=== PATIENT | female | born 1955 | race Caucasian/White ===

== ENCOUNTER 2023-04-09 11:07 | Outpatient (OUT) | payer MEDICARE, OTHER, SELFPAY ==
[2023-04-09 11:36] LABS: Basophils Absolute Auto 0.1 10^3/uL (0.0-0.1); Eosinophils Absolute Auto 0.1 10^3/uL (0.0-0.7); Eosinophils Percent Auto 1.4 % (0.9-7.0); Hematocrit 39.9 % (36.0-48.0); Hemoglobin 13.4 g/dL (12.0-16.0); Immature Granulocytes Abs Auto 0.09 10^3/uL (0.00-0.03); Immature Granulocytes Pct Auto 1.4 % (0.0-0.5); Lymphocytes Absolute Auto 1.4 10^3/uL (1.2-3.8); Lymphocytes Percent Auto 22.3 % (20.5-60.0); Mean Corpuscular HGB Conc 33.6 g/dL (29.9-35.2); Mean Corpuscular Hemoglobin 28.6 pg (26.7-34.0); Mean Corpuscular Volume 85.3 fL (81.0-99.0); Mean Platelet Volume 8.9 fL (9.5-13.5); Monocytes Absolute Auto 0.5 10^3/uL (0.3-0.8); Monocytes Percent Auto 8.3 % (1.7-12.0); Neutrophils Absolute Auto 4.1 10^3/uL (1.4-6.5); Neutrophils Percent Auto 65.6 % (43.0-75.0); Platelet Count 256 10^3/uL (150-450); Red Blood Count 4.68 10^6/uL (4.20-5.40); White Blood Count 6.3 10^3/uL (4.0-11.0)
[2023-04-09 11:48] LABS: Erythrocyte Sedimentation Rate 10 mm/hr (<=30)
[2023-04-09 13:52] LABS: Alanine Aminotransferase 40 U/L (14-59); Albumin Globulin Ratio 1.1; Alkaline Phosphatase 63 U/L (46-116); Anion Gap 10.3; Aspartate Amino Transferase 31 U/L (15-37); BUN Creatinine Ratio 20.6; Bilirubin Total 0.6 mg/dL (0.2-1.0); Calcium 9.5 mg/dL (8.5-10.1); Carbon Dioxide 30.4 mmol/L (21.0-32.0); Chloride 106 mmol/L (98-107); Estimated GFR (African America >60 (>=60); Estimated GFR (Non-African Ame >60 (>=60); Globulin 3.5 g/dL; Glucose 84 mg/dL (74-106); Potassium 3.7 mmol/L (3.5-5.1); Sodium 143 mmol/L (136-145); Total Protein 7.5 g/dL (6.4-8.2)
== END 2023-04-09 11:08 | disposition home or self-care (01) ==
LOC: LAB 11:12
PROVIDERS: Visit Provider Internal Medicine Rheumatology
DX: M05.79 Rheumatoid arthritis with rheumatoid factor of multiple sites without organ or systems involvement (principal); M19.91 Primary osteoarthritis, unspecified site; Z79.899 Other long term (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 therapy
CPT/HCPCS: 36415; 80053; 85025; 85652

== ENCOUNTER 2023-10-12 12:39 | Outpatient (OUT) | payer MEDICARE, OTHER, SELFPAY ==
[2023-10-12 13:15] LABS: Basophils Absolute Auto 0.1 10^3/uL (0.0-0.1); Basophils Percent Auto 0.7 % (0.2-2.0); Eosinophils Absolute Auto 0.1 10^3/uL (0.0-0.7); Eosinophils Percent Auto 1.2 % (0.9-7.0); Hematocrit 40.6 % (36.0-48.0); Hemoglobin 13.2 g/dL (12.0-16.0); Immature Granulocytes Abs Auto 0.01 10^3/uL (0.00-0.03); Immature Granulocytes Pct Auto 0.1 % (0.0-0.5); Lymphocytes Absolute Auto 1.7 10^3/uL (1.2-3.8); Lymphocytes Percent Auto 23.1 % (20.5-60.0); Mean Corpuscular HGB Conc 32.5 g/dL (29.9-35.2); Mean Corpuscular Hemoglobin 27.7 pg (26.7-34.0); Mean Corpuscular Volume 85.3 fL (81.0-99.0); Monocytes Absolute Auto 0.5 10^3/uL (0.3-0.8); Monocytes Percent Auto 6.6 % (1.7-12.0); Neutrophils Absolute Auto 5.1 10^3/uL (1.4-6.5); Neutrophils Percent Auto 68.3 % (43.0-75.0); Platelet Count 261 10^3/uL (150-450); Red Blood Count 4.76 10^6/uL (4.20-5.40); Red Cell Distribution Width 12.8 % (11.0-15.0); White Blood Count 7.5 10^3/uL (4.0-11.0)
[2023-10-12 13:32] LABS: Erythrocyte Sedimentation Rate 14 mm/hr (<=30)
[2023-10-12 13:43] LABS: Alanine Aminotransferase 41 U/L (14-59); Albumin Level 3.7 g/dL (3.4-5.0); Alkaline Phosphatase 65 U/L (46-116); Anion Gap 8.7; Aspartate Amino Transferase 28 U/L (15-37); Bilirubin Total 0.5 mg/dL (0.2-1.0); Calcium 9.3 mg/dL (8.5-10.1); Carbon Dioxide 32.7 mmol/L (21.0-32.0); Chloride 105 mmol/L (98-107); Estimated GFR (African America >60 (>=60); Estimated GFR (Non-African Ame >60 (>=60); Globulin 3.7 g/dL; Glucose 95 mg/dL (74-106); Potassium 3.4 mmol/L (3.5-5.1); Sodium 143 mmol/L (136-145); Total Protein 7.4 g/dL (6.4-8.2)
== END 2023-10-12 12:40 | disposition home or self-care (01) ==
LOC: LAB 12:44
PROVIDERS: Visit Provider Registered Nurse
DX: M05.79 Rheumatoid arthritis with rheumatoid factor of multiple sites without organ or systems involvement (principal); M19.91 Primary osteoarthritis, unspecified site; Z79.899 Other long term (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 therapy
CPT/HCPCS: 36415; 80053; 85025; 85652

== ENCOUNTER 2024-03-08 07:16 | Outpatient (OUT) | payer MEDICARE, OTHER, SELFPAY ==
--- OUTSIDE RECORDS SUMMARY | 2024-03-08 07:20 | XMS_ITS | CCD ---
Author Organization [facility] Care Team Providers Care Solvent Recoverer Name Role Phone Shakeel Abbott MD Primary Care Provider [phone] MISC, DR JEFFERSON Consulting Unavailable PERSNO ., DR BRE Boogie Primary Care Unavailable SANCHEZ, DR ODONNELL Admitting Unavailable SANCHEZ, DR ODONNELL Attending Unavailable SANCHEZ, DR ODONNELL Consulting Unavailable MISC, DR JEFFERSON Admitting Unavailable MISC, DR JEFFERSON Consulting Unavailable MISC, DR JEFFERSON Attending Unavailable PERSON ., DR BRE Boogie Primary Care Unavailable Shakeel Abbott MD Primary Care Provider SCAR, SHAKEEL Referring Unavailable SCAR, SHAKEEL Primary Care Unavailable SCAR, SHAKEEL Referring Unavailable SCAR, SHAKEEL Primary Care Unavailable Bre Person MD Primary Care Provider SCAR, SHAKEEL Referring Unavailable SCAR, SHAKEEL Primary Care Unavailable SCAR, SHAKEEL Attending Unavailable SCAR, SHAKEEL Primary Care Unavailable Medications Current Medications Medication Drug Class(es) Dates Sig (Normalized) Sig (Original) ALPRAZolam 0.25 mg oral tablet (8 sources) Benzodiazepine Start: 12-28-2023 End: 06-25-2024 take 1 tablet by mouth once daily as needed ALPRAZolam (XANAX) 0.25 mg tablet Indications: SHYLA (generalized anxiety disorder) Take 1 tablet by mouth once daily as needed for up to 180 days. Not taking 12/25/20 10 tablet 0 12/28/2023 06/25/2024 Active Start: 12-05-2022 End: 06-03-2023 take 1 tablet by mouth once daily as needed ALPRAZolam (XANAX) 0.25 mg tablet Indications: SHYLA (generalized anxiety disorder) Take 1 tablet by mouth once daily as needed for up to 180 days. Not taking 12/25/20 10 tablet 0 12/05/2022 06/03/2023 Active Start: 08-28-2021 End: 09-20-2022 take 1 tablet by mouth once daily as needed ALPRAZolam (XANAX) 0.25 mg tablet Indications: SHYLA (generalized anxiety disorder) Take 1 tablet by mouth once daily as needed for up to 180 days. Not taking 12/25/20 10 tablet 0 03/24/2022 09/20/2022 Active Comment on above: Take 1 tablet by marlon th once daily as needed for up to 180 days. Not taking 12/25/20 Take 1 tablet by marlon th once daily as needed for up to 90 days. Not taking 12/25/20 Completed/Discontinued Medications Medication Drug Class(es) Dates Sig (Normalized) Sig (Original) amLODIPine 5 mg oral tablet (12 sources) Dihydropyridine Calcium Channel Naz Start: 12-05-2022 End: 12-28-2023 take 1 tablet by mouth once daily amLODIPine (NORVASC) 5 mg tablet Indications: Hypertension, essential Take 1 tablet by mouth once daily. 90 tablet 3 12/28/2023 Active Start: 02-20-2021 End: 12-17-2021 take 1 tablet by mouth once daily amLODIPine (NORVASC) 5 mg tablet Take 1 tablet by mouth once daily. 30 tablet 11 02/20/2021 12/17/2021 Discontinued Comment on above: TAKE 1 TABLET BY MARLON TH EVERY DAY Take 1 tablet by marlon th once daily. hydroCHLOROthiazide 12.5 mg / lisinopril 20 mg oral tablet (13 sources) Thiazide Diuretic, Angiotensin Converting Enzyme Inhibitor Start: End: 024 take 1 tablet by mouth once daily lisinopril-hydroCHL OROthiazide (ZESTORETIC) 20-12.5 mg per tablet Indications: Hypertension, essential Take 1 tablet by mouth once daily. 90 tablet 3 12/28/2023 Active Comment on above: Take 1 tablet by marlon th once daily. Take one(1) tablet d aily. take 1 tablet by marlon th every day hydroxychloroquine sulfate 200 mg oral tablet (11 sources) Antimalarial, Antirheumatic Agent Start: PLAQUENIL 200 MG TABLET one tablet two times daily 0 11/07/2004 Active Comment on above: one tablet two times daily lovastatin 20 mg oral tablet (1 source) HMG-CoA Reductase Inhibitor Start: 009 End: LOVASTATIN 20 MG TAB Take one(1) tablet daily. 0 04/30/2009 02/21/2021 Discontinued Comment on above: Take one(1) tablet d aily. rosuvastatin calcium 40 mg oral tablet (11 sources) HMG-CoA Reductase Inhibitor Start: 023 End: 024 take 1 tablet by mouth once daily rosuvastatin (CRESTOR) 40 mg tablet Indications: Hyperlipidemia, mixed Take 1 tablet by mouth once daily. 90 tablet 3 12/28/2023 Active Start: 02-21-2021 End: 02-17-2022 take 1 tablet by mouth once daily rosuvastatin (CRESTOR) 40 mg tablet TAKE 1 TABLET BY MOUTH EVERY DAY 90 tablet 3 02/17/2022 Active Comment on above: Take 1 tablet by marlon th once daily. TAKE 1 TABLET BY MARLON TH EVERY DAY Problems Active Problems Problem Classification Problem Date Documented Date Episodic/Chronic Anxiety disorders (10 sources) Generalized anxiety disorder; Translations: [Generalized anxiety disorder] Onset: 03-24-2022 Chronic Cancer of breast (10 sources) Malignant neoplasm of female breast; Translations: [Malignant neoplasm of unspecified site of unspecified female breast] Onset: 11-07-2004 11-07-2004 Chronic Disorders of lipid metabolism (14 sources) Mixed hyperlipidemia; Translations: [Mixed hyperlipidemia] Onset: 02-20-2021 02-20-2021 Chronic Essential hypertension (16 sources) Essential hypertension; Translations: [Essential (primary) hypertension] Onset: 02-20-2021 Chronic Osteoarthritis (1 source) Primary osteoarthritis, unspecified site; Translations: [PRIMARY OSTEOARTHRITIS UNS SITE] Onset: 11-24-2022 Chronic Other aftercare (1 source) 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; Translations: [OTH FIELD CAPTAIN CURRENT DRUG THERAPY] Onset: 11-24-2022 Episodic Other nutritional; endocrine; and metabolic disorders (1 source) Hypercalcemia; Translations: [Hypercalcemia] 12-28-2023 Chronic Other screening for suspected conditions (not mental disorders or infectious disease) (9 sources) Patient encounter status; Translations: [Encounter for other screening for malignant neoplasm of breast] Onset: 04-28-2023 Episodic Residual codes; unclassified (1 source) Postmenopausal state; Translations: [Asymptomatic menopausal state] 04-28-2023 Episodic Residual codes; unclassified (1 source) Asymptomatic menopausal state; Translations: [Asymptomatic postmenopausal status] Onset: 04-28-2023 Episodic Rheumatoid arthritis and related disease (17 sources) Seronegative rheumatoid arthritis; Translations: [Rheumatoid arthritis without rheumatoid factor, unspecified site] Onset: 02-20-2021 02-20-2021 Chronic Past or Other Problems Problem Classification Problem Date Documented Da te Episodic/Chronic Cancer of breast (1 source) History of malignant neoplasm of breast; Translations: [Personal history of malignant neoplasm of breast] Onset: 11-07-2004 12-28-2023 Episodic Heart valve disorders (11 sources) Heart murmur; Translations: [Cardiac murmur, unspecified] Onset: 02-20-2021 02-20-2021 Episodic Results Test Name Value Interpretation Reference Range Facility [facility] 12-28-2023 CNOV Office Visit (FAMPLN) MARY DEMPSEY ([id number]) 1955 F Date Time Provider Department 12/28/23 2:40 PM SHAKEEL ABBOTT During your visit today, we recorded the following information about you: Pulse Blood pressure Weight 88/minute 140/78 71.6 kg Shakeel Abbott MD 12/28/2023 3:21 PM Signed Mary Zambranole is a 68 year old female here for a Medicare wellness visit. Medicare Health Risk Assessment General Health Very good Exercise: Minutes/Day 40 min Exercise: Days/Week 3 days- walking in the summer Alcohol: Daily Use Never Alcohol: Drinks/Day Patient does not drink Alcohol: 6 or more drinks Never Feel off balance No Concerns: Teeth/Dentures No Concerns: Sexual function No Troubled by feelings None of the above Frequency: Eating healthy diet Nearly every day ADLs requiring help Safety precautions in home/vehicle Yes Smoke, vape, chews tobacco No Difficulty hearing No Difficulty seeing No Current Providers Specialists: I have reviewed specialist-related care of the patient in the medical record. Sees rheumatology in [place] Medical/Family history review Reviewed and updated problem list, medical/surgical/fam fadia/social history, medications, and allergies. Opioid use review Opioid Medications (last 90 days) No data to display Depression screening Depression Screening PHQ-2 Score 12/28/2023 0 Depression screening tool completed and reviewed. Based on score and interview, patient is not at risk for depression. Screening tool discussed with patient, and I recommended no further intervention at this time. Cognitive screening Mini Cog Score: 5 Cognitive screening reviewed and no further action needed (score 3-5) Functional Observation Was the patient's Timed Up AND Go test unsteady or ? 12 seconds? No Advance Care Planning Surrogate decision maker and/or advance care plan documented Measurements BP 140/78 Pulse 88 Wt 157 lb 13.6 oz (71.6kg) SpO2 98% Vision Screening: Follows with optometry/ophthalmol ogy Assessment/Plan Medicare annual wellness visit, subsequent () - Counseled on healthy diet and regular exercise - Fall avoidance information provided - Personalized prevention plan provided Additional Concerns The following concerns were also discussed with the patient: HTN: home readings are normotensive 121/78 this morning on her cuff No changes in health in the past year PHYSICAL EXAM BP 140/78 Pulse 88 Wt 71.6 kg (157 lb 13.6 oz) SpO2 98% BMI 27.62 kg/m? GENERAL: well appearing, alert, in no acute distress CARDIOVASCULAR: regular rate and rhythm. No murmur, rubs or gallops. PULMONARY: clear to auscultation, no wheezing, rhonchi, or crackles ABDOMEN: soft, non-tender, non-distended, no masses or organomegaly EXTREMITY: no lower extremity edema. No skin discoloration. ASSESSMENT/PLAN: 1. Medicare annual wellness visit, subsequent - ICD9: V70.0, ICD10: Z00.00 (primary diagnosis) See above Would like cologuard instead of colonoscopy, ordered Mammogram ordered Pap done last year - ADVANCE CARE PLAN DISCUSSION - DEPRESSION SCREENING/ASSESSMENT 2. Screening for colon cancer - ICD9: V76.51, ICD10: Z12.11 - COLOGUARD 3. Hypertension, essential - ICD9: 401.9, ICD10: I10 - Home blood pressure readings controlled, home cuff has been verified in our office previously - Continue current medications - AMLODIPINE 5 MG TABLET - LISINOPRIL 20 MG-HYDROCHLOROTHIAZI DE 12.5 MG TABLET 4. SHYLA (generalized anxiety disorder) - ICD9: 300.02, ICD10: F41.1 Continue using Xanax sparingly as needed - ALPRAZOLAM 0.25 MG TABLET 5. Hypercalcemia - ICD9: 275.42, ICD10: E83.52 Repeat labs in 3 months - CALCIUM IONIZED BLOOD - BASIC METABOLIC PNL - PTH INTACT BLD - VITAMIN D 25 HYDROXY 6. Encounter for screening mammogram for malignant neoplasm of breast - ICD9: V76.12, ICD10: Z12.31 - NOÉ SCREENING W MANDA 7. Hyperlipidemia, mixed - ICD9: 272.2, ICD10: E78.2 Continue rosuvastatin - ROSUVASTATIN 40 MG TABLET 8. Seronegative rheumatoid arthritis (HCC) - ICD9: 714.0, ICD10: M06.00 Following with outside practicing dermatologist, stable on Plaquenil MD Scar Medina Cara, MD 12/28/2023 2:31 PM Signed Screening schedule The following prevention plan is recommended: BP Controlled (<130/80) Never done Colorectal Cancer Screening Never done Shingrix Vaccine(1 of 2) Never done RSV Vaccine(1 - 1-dose 60+ series) Never done Advance Directive Discussion due on 09/28/2023 Depression Assessment due on 09/28/2023 Annual PCP Team Chronic Disease Visit due on 12/06/2023 WHAT YOU CAN DO TO PREVENT FALLS Many falls can be prevented. By making some changes, you can lower your chances of falling. Four things YOU can do to prevent falls for you* and your caregiver 1. Begin a regular exercise program Exercise is one of the most important way (more content not included)... Normal [facility] CBC panel Auto (Bld)on 11-30 Erythrocyte distribution width (RBC) [Ratio] 12.8 % Normal 11.5-15.0 [facility] Comment on above: Order Comment: Speci men Type: BLOOD SPECIMEN Ordering Facility: [facility] Address: [address] [place], [place] [address] [address] Performed By: #### 5 8410-2 #### [facility] CLIA [id number] [address] [place] [address] Hematocrit (Bld) [Volume fraction] 41.7 % Normal 36.0-46.0 [facility] Comment on above: Order Comment: Speci men Type: BLOOD SPECIMEN Ordering Facility: [facility] Address: [address] [place] [address] Performed By: #### 5 8410-2 #### [facility] CLIA [id number] [address] [place] [address] Hemoglobin (Bld) [Mass/Vol] 13.7 g/dL Normal 11.5-15.5 [facility] Comment on above: Order Comment: Speci men Type: BLOOD SPECIMEN Ordering Facility: [facility] Address: [address] [place], [place] [address] Performed By: #### 5 8410-2 #### [facility] CLIA [id number] [address] [place] [address] MCH (RBC) [Entitic mass] 27.6 pg Normal 26.0-34.0 [facility] Comment on above: Order Comment: Speci men Type: BLOOD SPECIMEN Ordering Facility: [facility] Address: [address] [place] [address] Performed By: #### 5 8410-2 #### [facility] CLIA [id number] [address] [place] [address] MCHC (RBC) [Mass/Vol] 32.9 g/dL Normal 30.5-36.0 [facility] Comment on above: Order Comment: Speci men Type: BLOOD SPECIMEN Ordering Facility: [facility] Address: [address] [place] [address] Performed By: #### 5 8410-2 #### [facility] CLIA [id number] [address] [place] [address]20 MCV (RBC) [Entitic vol] 83.9 fL Normal 80.0-100.0 [facility] Comment on above: Order Comment: Speci men Type: BLOOD SPECIMEN Ordering Facility: [facility] Address: [address] [place] [address] Performed By: #### 5 8410-2 #### [facility] CLIA [id number] [address] [place] [address]254 Nucleated RBC (Bld) [#/Vol] 10*3/uL Normal <0.01 [facility] Comment on above: Order Comment: Speci men Type: BLOOD SPECIMEN Ordering Facility: [facility] Address: [address] [place] [place] [id number] Performed By: #### 5 8410-2 #### [facility] CLIA [id number] [address] [place] [address] 19123 Platelet mean volume (Bld) [Entitic vol] 8.9 fL Low 9.0-12.7 [facility] Comment on above: Order Comment: Speci men Type: BLOOD SPECIMEN Ordering Facility: [facility] Address: [address] [place] [address] Performed By: #### 5 8410-2 #### [facility] CLIA [id number] [address] [place] [address] 13756 Platelets (Bld) [#/Vol] 263 10*3/uL Normal 150-400 [facility] Comment on above: Order Comment: Speci men Type: BLOOD SPECIMEN Ordering Facility: [facility] Address: [address] [place] [address] Performed By: #### 5 8410-2 #### [facility] CLIA [id number] [address] [place] [address] 24005 RBC (Bld) [#/Vol] 4.97 10*6/uL Normal 3.90-5.20 [facility] Comment on above: Order Comment: Speci men Type: BLOOD SPECIMEN Ordering Facility: [facility] Address: [address] [place] [address] Performed By: #### 5 8410-2 #### [facility] CLIA [id number] [address] [place] [address]24 WBC (Bld) [#/Vol] 7.29 10*3/uL Normal 3.70-11.00 [facility] Comment on above: Order Comment: Speci men Type: BLOOD SPECIMEN Ordering Facility: [facility] Address: [address] [place], [place] [address] Performed By: #### 5 8410-2 #### [facility] CLIA [id number] [address] [place] [address] 43936 Comprehensive metabolic 2000 panelon 12-01-2023 Albumin [Mass/Vol] 4.7 g/dL Normal 3.9-4.9 [facility] Comment on above: Order Comment: Speci men Type: BLOOD SPECIMEN Ordering Facility: [facility] Address: [address] [place] [address] Performed By: #### 2 4323-8 #### [facility] CLIA [id number] [address] [place] [address] 50188 ALP [Catalytic activity/Vol] 78 U/L Normal 34-123 [facility] Comment on above: Order Comment: Speci men Type: BLOOD SPECIMEN Ordering Facility: [facility] Address: [address] [place] [address] Performed By: #### 2 4323-8 #### [facility] CLIA [id number] [address] [place] [address] 13082 ALT [Catalytic activity/Vol] 30 U/L Normal 7-38 [facility] Comment on above: Order Comment: Speci men Type: BLOOD SPECIMEN Ordering Facility: [facility] Address: [address] [place] [address] Performed By: #### 2 4323-8 #### [facility] CLIA [id number] [address] [place] [address] 33743 Anion gap [Moles/Vol] 12 mmol/L Normal 9-18 [facility] Comment on above: Order Comment: Speci men Type: BLOOD SPECIMEN Ordering Facility: [facility] Address: [address] [place] [address] Performed By: #### 2 4323-8 #### [facility] CLIA [id number] [address] [place] [address] AST [Catalytic activity/Vol] 32 U/L Normal 13-35 [facility] Comment on above: Order Comment: Speci men Type: BLOOD SPECIMEN Ordering Facility: [facility] Address: [address] [place] [address] Performed By: #### 2 4323-8 #### [facility] CLIA [id number] [address] [place] [address] Bilirubin [Mass/Vol] 0.7 mg/dL Normal 0.2-1.3 [facility] Comment on above: Order Comment: Speci men Type: BLOOD SPECIMEN Ordering Facility: [facility] Address: [address] [place] [address] Performed By: #### 2 4323-8 #### [facility] CLIA [id number] [address] [place] [address] Calcium [Mass/Vol] 10.3 mg/dL High 8.5-10.2 [facility] Comment on above: Order Comment: Speci men Type: BLOOD SPECIMEN Ordering Facility: [facility] Address: [address] [place] [address] Performed By: #### 2 4323-8 #### [facility] CLIA [id number] [address] [place] [address]116 Chloride [Moles/Vol] 106 mmol/L High 97-105 [facility] Comment on above: Order Comment: Speci men Type: BLOOD SPECIMEN Ordering Facility: [facility] Address: [address] [place], [place] [address] Performed By: #### 2 4323-8 #### [facility] CLIA [id number] [address] [place] [address] CO2 [Moles/Vol] 28 mmol/L Normal 22-30 [facility] Comment on above: Order Comment: Speci men Type: BLOOD SPECIMEN Ordering Facility: [facility] Address: [address] [place] [address] Performed By: #### 2 4323-8 #### [facility] CLIA [id number] [address] [place] [address] Creatinine [Mass/Vol] 0.76 mg/dL Normal 0.58-0.96 [facility] Comment on above: Order Comment: Speci men Type: BLOOD SPECIMEN Ordering Facility: [facility] Address: [address] [place] [address] Performed By: #### 2 4323-8 #### [facility] CLIA [id number] [address] [place] [address] 21462 Creatinine and Glomerular filtration rate.predicted panel (S/P/Bld) 85 mL/min/1.73m??? Normal >=60 [facility] Comment on above: Order Comment: Speci men Type: BLOOD SPECIMEN Ordering Facility: [facility] Address: [address] [place] [address] Result Comment: Ambar mated Glomerular Filtration Rate (eGFR) is calculated using the 2020 CKD-EPI creatinine equation. This equation utilizes serum creatinine, sex, and age as parameters. The creatinine assay has traceable calibration to isotope dilution-mass spectrometry. Refer to KDIGO guidelines for clinical interpretation. In patients with unstable renal function, e.g. those with acute kidney injury, the eGFR may not accurately reflect actual GFR. Performed By: #### 2 4323-8 #### [facility] CLIA [id number] [address] [place] [address] 21468 Glucose [Mass/Vol] 94 mg/dL Normal 74-99 [facility] Comment on above: Order Comment: Speci men Type: BLOOD SPECIMEN Ordering Facility: [facility] Address: [address] [address] Result Comment: The [place] Diabetes Association (ADA) provides guidance for cutoff values for fasting glucose and random glucose. The ADA defines fasting as no caloric intake for at least 8 hours. Fasting plasma glucose results between 100 to 125 mg/dL indicate increased risk for diabetes (prediabetes). Fasting plasma glucose results greater than or equal to 126 mg/dL meet the criteria for diagnosis of diabetes. In the absence of unequivocal hyperglycemia, results should be confirmed by repeat testing. In a patient with classic symptoms of hyperglycemia or hyperglycemic crisis, random plasma glucose results greater than or equal to 200 mg/dL meet the criteria for diagnosis of diabetes. Reference: Standards of Medical Care in Diabetes 2016, [employer] Diabetes Association. Diabetes Care. 2016.39(Suppl 1). Performed By: #### 2 4323-8 #### [facility] CLIA [id number] [address] [place] [address]199 Potassium [Moles/Vol] 4.0 mmol/L Normal 3.7-5.1 [facility] Comment on above: Order Comment: Speci men Type: BLOOD SPECIMEN Ordering Facility: [facility] Address: [address] [place] [address] Performed By: #### 2 4323-8 #### [facility] CLIA [id number] [address] [place] [address] 82203 Protein [Mass/Vol] 7.5 g/dL Normal 6.3-8.0 [facility] Comment on above: Order Comment: Speci men Type: BLOOD SPECIMEN Ordering Facility: [facility] Address: [address] [place] [address] Performed By: #### 2 4323-8 #### [facility] CLIA [id number] [address] [place] [address]3555 Sodium [Moles/Vol] 146 mmol/L High 136-144 [facility] Comment on above: Order Comment: Speci men Type: BLOOD SPECIMEN Ordering Facility: [facility] Address: [address] [place] [address] Performed By: #### 2 4323-8 #### [facility] CLIA [id number] [address] [place] [address] 27816 Urea nitrogen [Mass/Vol] 14 mg/dL Normal 7-21 [facility] Comment on above: Order Comment: Speci men Type: BLOOD SPECIMEN Ordering Facility: [facility] Address: [address] [place] [address] Performed By: #### 2 4323-8 #### [facility] CLIA [id number] [address] [place] [address] 81498 Lipid 1996 panelon 4 Cholesterol [Mass/Vol] 185 mg/dL Normal <200 [facility] Comment on above: Order Comment: Speci men Type: BLOOD SPECIMEN Ordering Facility: [facility] Address: [address] [place] [address] Result Comment: <200 mg/dL, Desirable 200-239 mg/dL, Borderline high >239 mg/dL, High Performed By: #### 2 4331-1 #### [facility] CLIA [id number] [address] [place] [address] LAB CLIA [id number] [address] [place] [address] 77565 Cholesterol in HDL [Mass/Vol] 55 mg/dL Normal >39 [facility] Comment on above: Order Comment: Eric men Type: BLOOD SPECIMEN Ordering Facility: [facility] Address: [address] [place] [address] Result Comment: 40-5 9 mg/dL, Acceptable >59 mg/dL, High: Negative risk factor for coronary heart disease <40 mg/dL, Low: Positive risk factor for coronary heart disease Performed By: #### 2 4331-1 #### [facility] CLIA [id number] [address] [place] [address] LAB CLIA [id number] [address] [place] [address]2319 Cholesterol in LDL [Mass/Vol] 112 mg/dL High <100 [facility] Comment on above: Order Comment: Irasemai men Type: BLOOD SPECIMEN Ordering Facility: [facility] Address: [address] [place] [address] Result Comment: <100 mg/dL, Optimal 100-129 mg/dL, Near optimal/above optimal 130-159 mg/dL, Borderline high 160-189 mg/dL, High >189 mg/dL, Very high Secondary prevention optimal LDL Cholesterol levels are recommended to be < 70 mg/dL Performed By: #### 2 4331-1 #### [facility] CLIA [id number] [address] [place] [address] LAB CLIA [id number] [address] [place] [address] Cholesterol in LDL/Cholesterol in HDL [Mass ratio] 2.04 {ratio} Normal <2.54 [facility] Comment on above: Order Comment: Speci men Type: BLOOD SPECIMEN Ordering Facility: [facility] Address: [address] [place] [address] Result Comment: Raymundo frazier: 1. National Cholesterol Education Program ATP III Guideline At-A-Glance Quick Desk Reference: National Heart, Lung, and Blood [place]. National Institutes of Health. 2001: NIH Publication No. 01-3305. 2. An International Atherosclerosis Society position paper: global recommendations for the management of dyslipidemia: executive summary, Atherosclerosis. 2014: 232(2):410-413. Performed By: #### 2 4331-1 #### [facility] CLIA [id number] [address] [place] [address] LAB CLIA [id number] [address] [place] [address] Cholesterol in VLDL [Mass/Vol] 18 mg/dL Normal <30 [facility] Comment on above: Order Comment: Irasemai men Type: BLOOD SPECIMEN Ordering Facility: [facility] Address: [address] [place] [address] Performed By: #### 2 4331-1 #### [facility] CLIA [id number] [address] [place] [address] LAB CLIA [id number] [address] [place] [address]9063 Cholesterol non HDL [Mass/Vol] 130 mg/dL High <130 [facility] Comment on above: Order Comment: Irasemai men Type: BLOOD SPECIMEN Ordering Facility: [facility] Address: [address] [place], [place] [id number] Result Comment: <130 mg/dL, Optimal 130-159 mg/dL, Near optimal/above optimal 160-189 mg/dL, Borderline high 190-219 mg/dL, High >219 mg/dL, Very high Secondary prevention optimal non HDL Cholesterol levels are recommended to be <100 mg/dL Performed By: #### 2 4331-1 #### [facility] CLIA [id number] [address] [place], [place] [id number] [facility] CLIA [id number] [address] [place] [address] Cholesterol.total/C holesterol in HDL [Mass ratio] 3.36 {ratio} Normal <5.10 [facility] Comment on above: Order Comment: Speci men Type: BLOOD SPECIMEN Ordering Facility: [facility] Address: [address] [place], [place] [address] Performed By: #### 2 4331-1 #### [facility] CLIA [id number] [address] [place], [place] [address] [facility] CLIA [id number] [address] [place] [address] FASTING TIME 12 hrs Normal [facility] Comment on above: Order Comment: Speci men Type: BLOOD SPECIMEN Ordering Facility: [facility] Address: [address] [place], [place] [address] Performed By: #### 2 4331-1 #### [facility] CLIA [id number] [address] [place], [place] [address] [facility] CLIA [id number] [address] [place] [address]64 Triglyceride [Mass/Vol] 88 mg/dL Normal <150 [facility] Comment on above: Order Comment: Speci men Type: BLOOD SPECIMEN Ordering Facility: [facility] Address: [address] [place] [address] Result Comment: <150 mg/dL, Normal 150-199 mg/dL, Borderline high 200-499 mg/dL, High >499 mg/dL, Very high Performed By: #### 2 4331-1 #### [facility] CLIA [id number] [facility] [facility] [address] [address] [place] [facility] CLIA [id number] [address] [place] [address] CNCOon 04-29-2023 [facility] HNO ID: [id number] Author: Coordinator, Mammography Service: ? Author Type: Physician Type: Letter Filed: 04/30/2023 11:34 PM Note Text: [address] [address] April 29, 2023 PID: [id number] Mary Dempsey [address] [place] [address] [place] [id number] Dear Ms. Dempsey, We are pleased to inform you that the results of your recent breast imaging exam on 04/28/2023 are normal. Early detection of cancer is very important. We also understand recommendations regarding breast cancer screening are controversial. Please discuss with your primary care provider which strategy is best for you and whether a mammogram is right for you. Your imaging studies and report will be kept on file at [facility] as part of your permanent medical record and are available for your continuing care. Thank you for allowing us to help in meeting your health care needs. Sincerely, Dr. Sam Interpreting Radiologist [facility] (Normal over 40) Normal [facility] BD DXA - AXIAL SKELETONon BD DXA - AXIAL SKELETON * * *Final Report* * * DATE OF EXAM: Apr 28 2023 3:16PM LDX 0804 - BD DXA - AXIAL SKELETON / PROCEDURE REASON: multiple diagnoses * * * * Physician Interpretation * * * * EXAM TITLE: BONE MINERAL DENSITOMETRY DATE: 04/28/2023 2:30 PM COMPARISON: CLINICAL INDICATION/HISTORY: Postmenopausal, screening for osteoporosis TECHNIQUE: DXA [place]-Mytonomy QDR 4500C v.11.2 examination was performed on the lumbar spine and hips. FINDINGS: 1. L1-L4 BMD is 1.015 g/cm2 which is 86% of peak bone mass compared to young normals which is -1.4 standard deviations relative to the mean of young normals (T-score). According to the World Health Organization criteria, this would be classified as osteopenia. No statistically significant interval change. 2. Left hip BMD is 0.972 g/cm2 which is 96% of peak bone mass compared to young normals which is -0.3 standard deviations relative to the mean of young normals (T-score). According to the World Health Organization criteria, this would be classified as normal. No statistically significant interval change. 3. Left femoral neck BMD is 0.900 g/cm2 which is 87% of peak bone mass compared to young normals which is -1.0 standard deviations relative to the mean of young normals (T-score). According to the World Health Organization criteria, this would be classified as borderline normal. 4. Right hip BMD is 1.034 g/cm2 which is 103% of peak bone mass compared to young normals which is 0.2 standard deviations relative to the mean of young normals (T-score). According to the World Health Organization criteria, this would be classified as normal. 5. Right femoral neck BMD is 0.918 g/cm2 which is 88% of peak bone mass compared to young normals which is -0.9 standard deviations relative to the mean of young normals (T-score). According to the World Health Organization criteria, this would be classified as normal. IMPRESSION: Osteopenia by WHO criteria. Patient is at increased risk for fractures. No statistically significant interval change. * FRAX 10 YEAR PROBABILITY OF FRACTURE: Major Osteoporotic 11.0 % Hip 1.1 % Based on Femur Neck BMD * FRAX is a trademark of the [employer]'s [facility] for Metabolic Bone Disease, a WHO Collaborating [place]. This applies to men over 50 and to post menopausal women over 50 years of age. The 10 year probability of fracture may be lower than reported above if the patient has received treatment for osteopenia/osteoporo sis. It is also less accurate the more severe the osteoporosis. Major Osteoporotic Fracture: clinical spine, forearm, hip or shoulder. RELATIVE FRACTURE RISK TABLE NOTE: This table applies to post-menopausal females. T-score Fracture risk 0 average risk for normal 40 year old -1 2 times the normal -2 4 times the normal -3 8 times the normal etc. GENERAL RECOMMENDATIONS FOR PREVENTION OF BONE LOSS: 1. 1200 mg - 1500 mg calcium per day if no history of renal calculi for adults 50 years and over. 2. 800 - 1000 International Units of vitamin D3 per day if no history of renal calculi for adults 50 years and over. 3. Weight bearing exercise 4. Advise against smoking. If currently smoking, recommend cessation. 5. Avoid excessive use of caffeine, soft drinks, and alcoholic beverages. The National Osteoporosis Foundation recommends that treatment be considered for patients with T-scores of -2.5 or lower (-1 or lower if patient at high risk for accelerated bone loss). Adult School Counselor: PSCB Transcribe Date/Time: Apr 29 2023 7:40A Dictated by : NIKOLAS SILVEIRA MD This examination was interpreted and the report reviewed and electronically signed by: NIKOLAS SILVEIRA MD on Apr 29 2023 7:41AM EST [id number] CN Normal [facility] NOÉ SCREENING W TOMOon 04-28 NOÉ SCREENING W MANDA * * *Final Report* * * DATE OF EXAM: Apr 28 2023 3:14PM LDW 0582 - NOÉ SCREENING W MANDA / PROCEDURE REASON: Encounter for screening mammogram for malignant neoplasm of breast * * * * Physician Interpretation * * * * #[id number] - NOÉ SCREENING W MANDA BILATERAL DIGITAL SCREENING MAMMOGRAM TOMOSYNTHESIS WITH CAD: 04/28/2023 HISTORY: / Screening Mammogram-Patient reports NO symptoms. RESULT: TECHNIQUE: The study was acquired using full field digital technology and interpreted from soft copy. Digital Breast Tomosynthesis (DBT) images were obtained and used to assist in the interpretation of this examination. Current study was also evaluated with a Computer Aided Detection (CAD). Comparison is made to exams dated: 04/30/2022 mammogram - [facility], 09/18/2021 mammogram - [facility], 03/14/2021 mammogram - [facility], 02/20/2021 mammogram - [facility], 07/17/2014 mammogram, and 07/15/2013 mammogram - [facility]. The tissue of both breasts is heterogeneously dense. This may lower the sensitivity of mammography. There are benign post operative findings in the right breast. No significant masses, calcifications, or other findings are seen in either breast. There has been no significant interval change. IMPRESSION: BENIGN FINDING There is no mammographic evidence of malignancy. A 1 year screening mammogram is recommended. Von faulkner/waleska:04/29/2023 12:22:18 Bending Roll Operator(s): Reji Bliss (Joey)(M), [facility] letter sent: Normal over 40 Mammogram BI-RADS: 2 Benign finding Multiple national specialty organizations have released breast cancer screening guidelines for women at average risk for developing breast cancer - guidelines that are based on both evidence and opinion, yet differ on when to start and how often to screen for breast cancer. With representation from Breast Imaging, Internal Medicine, Women's Health, Family Medicine, and Medical/Surgical Oncology, the [facility] has carefully reviewed the data and reached the following consensus: 1) All women should engage in shared decision-making with their providers to decide when to start and how often to screen; 2) All women should have the opportunity to start screening mammography at age 40; 3) For women ages 45-55, we recommend annual screening mammograms; 4) For women ages 55 and over, we support both the transition from an annual to a biennial interval if this aligns more with patient's values and preferences, or continuation with annual screening; 5) All women should discuss with their providers when to stop screening mammograms. Adult School Counselor: [place] Transcribe Date/Time: Apr 28 2023 2:49P Dictated by : VON SAM MD This examination was interpreted and the report reviewed and electronically signed by: VON SAM MD on Apr 29 2023 12:22PM EST [id number] CN Normal [facility] CBC AUTO DIFFon 11-20-2022 BASO # 0.0 103/ul Normal 0.0-0.1 [facility] Comment on above: Performed By: #### C BC #### [facility] [address] [address] [address] Pietro Tam Basophils/100 WBC (Bld) 0.5 % Normal 0.2-2.0 [facility] Comment on above: Performed By: #### C BC #### [facility] [address] [place] [address] Dr. Pietro Tam EO # 0.1 103/ul Normal 0.0-0.7 [facility] Comment on above: Performed By: #### C BC #### [facility] [address] [place] [address] Dr. Pietro Tam Eosinophils/100 WBC (Bld) 1.2 % Normal 0.9-7.0 [facility] Comment on above: Performed By: #### C BC #### [facility] [address] [place] [address] Dr. Pietro Tam Erythrocyte distribution width (RBC) [Ratio] 13.0 % Normal 11.0-15.0 [facility] Comment on above: Performed By: #### C BC #### [facility] [address] [place] [address] Dr. Pietro Tam Hematocrit (Bld) [Volume fraction] 39.5 % Normal 36.0-48.0 [facility] Comment on above: Performed By: #### C BC #### [facility] [address] [place] [address] Dr. Pietro Tam Hemoglobin (Bld) [Mass/Vol] 13.2 g/dL Normal 12.0-16.0 [facility] Comment on above: Performed By: #### C BC #### [facility] [address] [place] [address] Dr. Pietro Tam IG # 0.03 10e3/ul Normal 0.00-0.03 [facility] Comment on above: Performed By: #### C BC #### [facility] [address] [place] [address] Dr. Pietro aTm IG % 0.4 % Normal 0.0-0.5 [facility] Comment on above: Performed By: #### C BC #### [facility] [address] [place] [address] Dr. Pietro Tam LYMPH # 1.8 103/ul Normal 1.2-3.8 [facility] Comment on above: Performed By: #### C BC #### [facility] [address] [place] [address] Dr. Pietro Tam Lymphocytes/100 WBC (Bld) 22.5 % Normal 20.5-60.0 [facility] Comment on above: Performed By: #### C BC #### [facility] [address] [place] [address] Dr. Pietro Tam MANUAL DIFF REQ NO Normal [facility] Comment on above: Performed By: #### C BC #### [facility] [address] [place] [address] Dr. Pietro Tam MCH (RBC) [Entitic mass] 27.7 pg Normal 26.7-34.0 [facility] Comment on above: Performed By: #### C BC #### [facility] [address] [place] [address] Dr. Pietro Tam MCHC (RBC) [Mass/Vol] 33.4 g/dL Normal 29.9-35.2 [facility] Comment on above: Performed By: #### C BC #### [facility] [address] [place] [address] Dr. Pietro Tam MCV (RBC) [Entitic vol] 83.0 fL Normal 81.0-99.0 [facility] Comment on above: Performed By: #### C BC #### [facility] [address] [place] [address] Dr. Pietro Tam MONO # 0.6 103/ul Normal 0.3-0.8 [facility] Comment on above: Performed By: #### C BC #### [facility] [address] [place] [address] Dr. Pietro Tam Monocytes/100 WBC (Bld) 7.3 % Normal 1.7-12.0 [facility] Comment on above: Performed By: #### C BC #### [facility] [address] [place] [address] Dr. Pietro Tam NEUT # 5.6 103/ul Normal 1.4-6.5 [facility] Comment on above: Performed By: #### C BC #### [facility] [address] [place] [address] Dr. Pietro Tam Neutrophils/100 WBC (Bld) 68.1 % Normal 43.0-75.0 [facility] Comment on above: Performed By: #### C BC #### [facility] [address] [place] [address] Dr. Pietro Tam Platelet mean volume (Bld) [Entitic vol] 8.9 fL Critically low 9.5-13.5 [facility] Comment on above: Performed By: #### C BC #### [facility] [address] [place] [address] Dr. Pietro Tam PLT 246 103/ul Normal 150-450 [facility] Comment on above: Performed By: #### C BC #### [facility] [address] [place] [address] Dr. Pietro Tam RBC 4.76 106/ul Normal 4.20-5.40 [facility] Comment on above: Performed By: #### C BC #### [facility] [address] [place] [address] Dr. Pietro Tam WBC 8.2 103/ul Normal 4.0-11.0 [facility] Comment on above: Performed By: #### C BC #### [facility] [address] [place] [address] Dr. Pietro Tam PROF 14(COMP METB)on 023 Albumin [Mass/Vol] 4.0 g/dL Normal 3.4-5.0 [facility] Comment on above: Performed By: #### C MP #### [facility] [address] [place] [address] Dr. Pietro Tam Albumin/Globulin [Mass ratio] 1.1 {ratio} Normal [facility] Comment on above: Performed By: #### C MP #### [facility] [address] [place] [address] Dr. Pietro Tam ALP [Catalytic activity/Vol] 75 U/L Normal 46-116 [facility] Comment on above: Performed By: #### C MP #### [facility] [address] [address] [address] Pietro Tam ALT [Catalytic activity/Vol] 55 U/L Normal 14-59 [facility] Comment on above: Performed By: #### C MP #### [facility] [address] [address] [address] Pietro Tam Anion gap [Moles/Vol] 9.3 mmol/L Normal [facility] Comment on above: Performed By: #### C MP #### [facility] [address] [address] [address] Pietro Tam AST [Catalytic activity/Vol] 43 U/L Critically high 15-37 [facility] Comment on above: Performed By: #### C MP #### [facility] [address] [address] [address] Pietro Tam Bilirubin [Mass/Vol] 0.5 mg/dL Normal 0.2-1.0 [facility] Comment on above: Performed By: #### C MP #### [facility] [address] [address] [address] Pietro Tam Calcium [Mass/Vol] 9.5 mg/dL Normal 8.5-10.1 [facility] Comment on above: Performed By: #### C MP #### [facility] [address] [place] [address] Dr. Pietro Tam Chloride [Moles/Vol] 105 mmol/L Normal 98-107 [facility] Comment on above: Performed By: #### C MP #### [facility] [address] [address] [address] Pietro Tam CO2 [Moles/Vol] 29.2 mmol/L Normal 21.0-32.0 [facility] Comment on above: Performed By: #### C MP #### [facility] [address] [place] [address] Dr. Pietro Tam Creatinine [Mass/Vol] 0.56 mg/dL Normal 0.55-1.02 [facility] Comment on above: Performed By: #### C MP #### [facility] [address] [place] [address] Dr. Pietro Tam EGFR-AF TANZANIAN >60 Normal >=[address] [facility] Comment on above: Performed By: #### C MP #### [facility] [address] [address] [address] Pietro Tam EGFR-NON AF TANZANIAN >60 Normal >=60 [facility] Comment on above: Performed By: #### C MP #### [facility] [address] [address] [address] Pietro Tam Globulin (S) [Mass/Vol] 3.5 g/dL Normal [facility] Comment on above: Performed By: #### C MP #### [facility] [address] [address] [address] Pietro Tam Glucose [Mass/Vol] 87 mg/dL Normal 74-106 [facility] Comment on above: Performed By: #### C MP #### [facility] [address] [address] [address] Pietro Tam Potassium [Moles/Vol] 3.5 mmol/L Normal 3.5-5.1 [facility] Comment on above: Performed By: #### C MP #### [facility] [address] [address] [address] Pietro Tam Protein [Mass/Vol] 7.5 g/dL Normal 6.4-8.2 [facility] Comment on above: Performed By: #### C MP #### [facility] [address] [address] [address] Pietro Tam Sodium [Moles/Vol] 140 mmol/L Normal 136-145 [facility] Comment on above: Performed By: #### C MP #### [facility] [address] [address] [address] Pietro Tam Urea nitrogen [Mass/Vol] 15.0 mg/dL Normal 7.0-18.0 [facility] Comment on above: Performed By: #### C MP #### [facility] [address] [address] [address] Pietro Tam Urea nitrogen/Creatinine [Mass ratio] 26.8 mg/mg Normal [facility] Comment on above: Performed By: #### C MP #### [facility] [address] [address] [address] Pietro Tam SED RATE WESTERGRENon 2022 SED RATE 18 mm/hr Normal <=30 [facility] Comment on above: Performed By: #### S EDR #### [facility] [address] [place] [address] Dr. Pietro Tam CBC AUTO DIFFon 05-26-2022 BASO # 0.1 103/ul Normal 0.0-0.1 [facility] Comment on above: Performed By: #### C BC #### [facility] [address] [place] [address] Dr. Pietro Tam Basophils/100 WBC (Bld) 0.7 % Normal 0.2-2.0 [facility] Comment on above: Performed By: #### C BC #### [facility] [address] [place] [address] Dr. Pietro Tam EO # 0.1 103/ul Normal 0.0-0.7 [facility] Comment on above: Performed By: #### C BC #### [facility] [address] [place] [address] Dr. Pietro Tam Eosinophils/100 WBC (Bld) 1.3 % Normal 0.9-7.0 [facility] Comment on above: Performed By: #### C BC #### [facility] [address] [place] [address] Dr. Pietro Tam Erythrocyte distribution width (RBC) [Ratio] 13.1 % Normal 11.0-15.0 [facility] Comment on above: Performed By: #### C BC #### [facility] [address] [place] [address] Dr. Pietro Tam Hematocrit (Bld) [Volume fraction] 38.5 % Normal 36.0-48.0 [facility] Comment on above: Performed By: #### C BC #### [facility] [address] [place] [address] Dr. Pietro Tam Hemoglobin (Bld) [Mass/Vol] 12.9 g/dL Normal 12.0-16.0 [facility] Comment on above: Performed By: #### C BC #### [facility] [address] [place] [address] Dr. Pietro Tam IG # 0.01 10e3/ul Normal 0.00-0.03 [facility] Comment on above: Performed By: #### C BC #### [facility] [address] [place] [address] Dr. Pietro Tam IG % 0.1 % Normal 0.0-0.5 [facility] Comment on above: Performed By: #### C BC #### [facility] [address] [place] [address] Dr. Pietro Tam LYMPH # 1.6 103/ul Normal 1.2-3.8 [facility] Comment on above: Performed By: #### C BC #### [facility] [address] [place] [address] Dr. Pietro Tam Lymphocytes/100 WBC (Bld) 21.7 % Normal 20.5-60.0 [facility] Comment on above: Performed By: #### C BC #### [facility] [address] [place] [address] Dr. Pietro Tam MANUAL DIFF REQ NO Normal [facility] Comment on above: Performed By: #### C BC #### [facility] [address] [place] [address] Dr. Pietro Tam MCH (RBC) [Entitic mass] 28.1 pg Normal 26.7-34.0 [facility] Comment on above: Performed By: #### C BC #### [facility] [address] [place] [address] Dr. Pietro Tam MCHC (RBC) [Mass/Vol] 33.5 g/dL Normal 29.9-35.2 [facility] Comment on above: Performed By: #### C BC #### [facility] [address] [place] [address] Dr. Pietro Tam MCV (RBC) [Entitic vol] 83.9 fL Normal 81.0-99.0 [facility] Comment on above: Performed By: #### C BC #### [facility] [address] [place] [address] Dr. Pietro Tam MONO # 0.5 103/ul Normal 0.3-0.8 [facility] Comment on above: Performed By: #### C BC #### [facility] [address] [place] [address] Dr. Pietro Tam Monocytes/100 WBC (Bld) 6.5 % Normal 1.7-12.0 [facility] Comment on above: Performed By: #### C BC #### [facility] [address] [place] [address] Dr. Pietro Tam NEUT # 5.0 103/ul Normal 1.4-6.5 [facility] Comment on above: Performed By: #### C BC #### [facility] [address] [place] [address] Dr. Pietro Tma Neutrophils/100 WBC (Bld) 69.7 % Normal 43.0-75.0 [facility] Comment on above: Performed By: #### C BC #### [facility] [address] [place] [address] Dr. Pietro Tam Platelet mean volume (Bld) [Entitic vol] 8.5 fL Critically low 9.5-13.5 [facility] Comment on above: Performed By: #### C BC #### [facility] [address] [place] [address] Dr. Pietro Tam PLT 253 103/ul Normal 150-450 [facility] Comment on above: Performed By: #### C BC #### [facility] [address] [place] [address] Dr. Pietro Tam RBC 4.59 106/ul Normal 4.20-5.40 [facility] Comment on above: Performed By: #### C BC #### [facility] [address] [place] [address] Dr. Pietro Tam WBC 7.2 103/ul Normal 4.0-11.0 [facility] Comment on above: Performed By: #### C BC #### [facility] [address] [place] [address] Dr. Pietro Tam PROF 14(COMP METB)on 022 Albumin [Mass/Vol] 4.0 g/dL Normal 3.4-5.0 [facility] Comment on above: Performed By: #### C MP #### [facility] [address] [place] [address] Dr. Pietro Tam Albumin/Globulin [Mass ratio] 1.2 {ratio} Normal [facility] Comment on above: Performed By: #### C MP #### [facility] [address] [place] [address] Dr. Pietro Tam ALP [Catalytic activity/Vol] 71 U/L Normal 46-116 [facility] Comment on above: Performed By: #### C MP #### [facility] [address] [place] [address] Dr. Pietro Tam ALT [Catalytic activity/Vol] 40 U/L Normal 14-59 [facility] Comment on above: Performed By: #### C MP #### [facility] [address] [place] [address] Dr. Pietro Tam Anion gap [Moles/Vol] 12.2 mmol/L Normal [facility] Comment on above: Performed By: #### C MP #### [facility] [address] [place] [address] Dr. Pietro Tam AST [Catalytic activity/Vol] 31 U/L Normal 15-37 [facility] Comment on above: Performed By: #### C MP #### [facility] [address] [place] [address] Dr. Pietro Tam Bilirubin [Mass/Vol] 0.7 mg/dL Normal 0.2-1.0 [facility] Comment on above: Performed By: #### C MP #### [facility] [address] [place] [address] Dr. Pietro Tam Calcium [Mass/Vol] 9.0 mg/dL Normal 8.5-10.1 [facility] Comment on above: Performed By: #### C MP #### [facility] [address] [place] [address] Dr. Pietro Tam Chloride [Moles/Vol] 104 mmol/L Normal 98-107 [facility] Comment on above: Performed By: #### C MP #### [facility] [address] [address] [address] Pietro Tam CO2 [Moles/Vol] 29.4 mmol/L Normal 21.0-32.0 [facility] Comment on above: Performed By: #### C MP #### [facility] [address] [address] [address] Pietro Tam Creatinine [Mass/Vol] 0.68 mg/dL Normal 0.55-1.02 [facility] Comment on above: Performed By: #### C MP #### [facility] [address] [place] [address] Dr. Pietro Tam EGFR-AF TANZANIAN >60 Normal >=60 [facility] Comment on above: Performed By: #### C MP #### [facility] [address] [address] [address] Pietro Tam EGFR-NON AF TANZANIAN >60 Normal >=60 [facility] Comment on above: Performed By: #### C MP #### [facility] [address] [place] [address] Dr. Pietro Tam Globulin (S) [Mass/Vol] 3.3 g/dL Normal [facility] Comment on above: Performed By: #### C MP #### [facility] [address] [place] [address] Dr. Pietro Tam Glucose [Mass/Vol] 91 mg/dL Normal 74-106 [facility] Comment on above: Performed By: #### C MP #### [facility] [address] [place] [address] Dr. Pietro Tam Potassium [Moles/Vol] 3.6 mmol/L Normal 3.5-5.1 [facility] Comment on above: Performed By: #### C MP #### [facility] [address] [place] [address] Dr. Pietro Tam Protein [Mass/Vol] 7.3 g/dL Normal 6.4-8.2 [facility] Comment on above: Performed By: #### C MP #### [facility] [address] [address] [address] Pietro Tam Sodium [Moles/Vol] 142 mmol/L Normal 136-145 [facility] Comment on above: Performed By: #### C MP #### [facility] [address] [address] [address] Pietro Tam Urea nitrogen [Mass/Vol] 13.0 mg/dL Normal 7.0-18.0 [facility] Comment on above: Performed By: #### C MP #### [facility] [address] [address] [address] Pietro Tam Urea nitrogen/Creatinine [Mass ratio] 19.1 mg/mg Normal [facility] Comment on above: Performed By: #### C MP #### [facility] [address] [place] [address] Dr. Pietro Tam SED RATE [facility] 2021 SED RATE 10 mm/hr Normal <=30 [facility] Comment on above: Performed By: #### S EDR #### [facility] [address] [address] [address] Pietro Tam Complete Blood Count with Au to Diffon 12-17-2021 Basophils (Bld) [#/Vol] 0.04 10*3/uL Normal 0.00-0.20 [facility] Comment on above: Performed By: #### E SR, CBCAD, CMP #### [facility] [address] [place], [place] [id number] Basophils/100 WBC (Bld) 0.5 % Normal [facility] Comment on above: Performed By: #### E SR, CBCAD, CMP #### [facility] [address] [place], [place] [id number] Eosinophils (Bld) [#/Vol] 0.07 10*3/uL Normal 0.02-0.50 [facility] Comment on above: Performed By: #### E SR, CBCAD, CMP #### [facility] [address] [place], [place] [id number] Eosinophils/100 WBC (Bld) 0.9 % Normal [facility] [employer] Comment on above: Performed By: #### E SR, CBCAD, CMP #### [facility] [address] [place], [place] [id number] Erythrocyte distribution width (RBC) [Ratio] 13.2 % Normal 11.0-15.0 [facility] [employer] Comment on above: Performed By: #### E SR, CBCAD, CMP #### [facility] [address] [place], [place] [id number] Hematocrit (Bld) [Volume fraction] 43.0 % Normal 35.0-47.0 [facility] [employer] Comment on above: Performed By: #### E SR, CBCAD, CMP #### [facility] [address] [place], [place] [id number] Hemoglobin (Bld) [Mass/Vol] 14.3 g/dL Normal 11.6-15.5 [facility] [employer] Comment on above: Performed By: #### E SR, CBCAD, CMP #### [facility] [address] [place], [place] [id number] Lymphocytes (Bld) [#/Vol] 1.5 10*3/uL Normal 0.9-3.9 [facility] [employer] Comment on above: Performed By: #### E SR, CBCAD, CMP #### [facility] [address] [place], [place] [id number] Lymphocytes/100 WBC (Bld) 19.6 % Normal [facility] [employer] Comment on above: Performed By: #### E SR, CBCAD, CMP #### [facility] [address] [place], [place] [id number] MCH (RBC) [Entitic mass] 28.3 pg Normal 27.0-33.0 [facility] [employer] Comment on above: Performed By: #### E SR, CBCAD, CMP #### [facility] [address] [place], [place] [id number] MCHC (RBC) [Mass/Vol] 33.3 g/dL Normal 32.0-36.0 [facility] [employer] Comment on above: Performed By: #### E SR, CBCAD, CMP #### [facility] [address] [place], [place] [id number] MCV (RBC) [Entitic vol] 85 fL Normal 80-100 [facility] Comment on above: Performed By: #### Nadeem LANGFORD, CBCAD, CMP #### [facility] [address] [place], [place] [id number] Monocytes (Bld) [#/Vol] 0.5 10*3/uL Normal 0.2-0.9 [facility] Comment on above: Performed By: #### Nadeem LANGFORD, CBCAD, CMP #### [facility] [address] [place], [place] [id number] Monocytes/100 WBC (Bld) 6.1 % Normal [facility] Comment on above: Performed By: #### Nadeem LANGFORD, CBCAD, CMP #### [facility] [address] [place], [place] [id number] Neutrophils (Bld) [#/Vol] 5.5 10*3/uL Normal 1.5-7.8 [facility] [employer] Comment on above: Performed By: #### Nadeem LANGFORD, CBCAD, CMP #### [facility] [address] [place], [place] [id number] Neutrophils/100 WBC (Bld) 72.8 % Normal [facility] Special[facility] Comment on above: Performed By: #### Nadeem LANGFORD, CBCAD, CMP #### [facility] [address] [place], [place] [id number] Platelet mean volume (Bld) [Entitic vol] 10.10 fL Normal 7.50-12.50 [facility] [employer] Comment on above: Performed By: #### Nadeem LANGFORD, CBCAD, CMP #### [facility] [address] [place], [place] [id number] Platelets (Bld) [#/Vol] 168 10*3/uL Normal 140-400 [facility] [employer] Comment on above: Performed By: #### Nadeem LANGFORD, CBCAD, CMP #### [facility] [address] [place], [place] [id number] RBC (Bld) [#/Vol] 5.06 10*6/uL Normal 3.90-5.20 [facility] [employer] Comment on above: Performed By: #### Nadeem LANGFORD, CBCAD, CMP #### [facility] [address] [place], [place] [id number] RDW-SD 41.1 fL Normal 37.0-50.0 [facility] [employer] Comment on above: Performed By: #### E SR CBCDOREEN, CMP #### [facility] [address] [place], [place] [id number] WBC (Bld) [#/Vol] 7.6 10*3/uL Normal 3.8-11.0 [place] [employer] Comment on above: Performed By: #### E , CBCDOREEN, CMP #### [facility] [address] [place], [place] [id number] Comprehensive Metabolic Pane tova 12-17-2021 Albumin [Mass/Vol] 5.0 g/dL Normal 3.6-5.1 [facility] rn [place] [employer] Comment on above: Performed By: #### Nadeem LANGFORD, CBCDOREEN, CMP #### [facility] [address] [place], [place] [id number] Albumin/Globulin [Mass ratio] 2.2 {ratio} Normal 1.0-2.5 [facility] [employer] Comment on above: Performed By: #### Nadeem LANGFORD, CBCDOREEN, CMP #### [facility] [address] [place], [place] [id number] ALP [Catalytic activity/Vol] 77 U/L Normal 35-119 [facility] [employer] Comment on above: Performed By: #### E , CBCDOREEN, CMP #### [facility] [address] [place], [place] [id number] ALT [Catalytic activity/Vol] 34 U/L High 6-33 [facility] Comment on above: Result Comment: 08/28 Female reference range changed. Performed By: #### E , CBCAD, CMP #### [facility] [address] [place], [place] [id number] Anion gap [Moles/Vol] 15 mmol/L Normal 12-20 [facility] [employer] Comment on above: Result Comment: Effe ctive 10/03/2019 reference range changed. Performed By: #### E , CBCAD, CMP #### [facility] [address] [place], [place] [id number] AST [Catalytic activity/Vol] 29 U/L Normal 9-34 [facility] Comment on above: Performed By: #### E SR, CBCAD, CMP #### [facility] [address] [place], [place] [id number] Bilirubin [Mass/Vol] 0.48 mg/dL Normal 0.30-1.20 [facility] Comment on above: Performed By: #### E SR, CBCAD, CMP #### [facility] [address] [place], [place] [id number] BUN/CREA 27 Ratio High 6-22 [facility] Comment on above: Performed By: #### E SR, CBCAD, CMP #### [facility] [address] [place], [place] [id number] Calcium [Mass/Vol] 9.6 mg/dL Normal 8.6-10.2 [facility] Comment on above: Performed By: #### E SR, CBCAD, CMP #### [facility] [address] [place], [place] [id number] Chloride [Moles/Vol] 106 mmol/L Normal 98-107 [facility] Comment on above: Performed By: #### E SR, CBCAD, CMP #### [facility] [address] [place], [place] [id number] CO2 [Moles/Vol] 26 mmol/L Normal 20-31 [facility] Comment on above: Performed By: #### E SR, CBCAD, CMP #### [facility] [address] [place], [place] [id number] Creatinine [Mass/Vol] 0.6 mg/dL Normal 0.6-1.4 [facility] Comment on above: Performed By: #### E SR, CBCAD, CMP #### [facility] [address] [place], [place] [id number] eGFRAA 129 mL/min/1.73m2 Normal >60 [facility] Specialist Comment on above: Performed By: #### E SR, CBCAD, CMP #### [facility] [address] [place], [place] [id number] eGFRNAA 106 mL/min/1.73m2 Normal >60 [facility] Comment on above: Performed By: #### E SR, CBCAD, CMP #### [facility] [address] [place], [place] [id number] Globulin (S) [Mass/Vol] 2.3 g/dL Normal 1.9-3.7 [facility] [employer] Comment on above: Performed By: #### E SR CBCDOREEN, CMP #### [facility] [address] [place], [place] [id number] Glucose [Mass/Vol] 97 mg/dL Normal 65-99 [facility] [employer] Manager Comment on above: Result Comment: For FASTING Glucose --- ADA reference ranges: Normal 65-99 mg/dl Prediabetes 100-125 Diabetes >/= 126 Performed By: #### E SR CBCDOREEN, CMP #### [facility] [address] [place], [place] [id number] Potassium [Moles/Vol] 3.8 mmol/L Normal 3.5-5.5 [facility] [employer] Comment on above: Performed By: #### E SR CBCAD, CMP #### [facility] [address] [place], [place] [id number] Protein [Mass/Vol] 7.3 g/dL Normal 6.1-8.1 [facility] [employer] Comment on above: Performed By: #### E SR CBCAD, CMP #### [facility] [address] [place], [place] [id number] Sodium [Moles/Vol] 143 mmol/L Normal 135-146 [facility] [employer] Comment on above: Performed By: #### E SR CBCAD, CMP #### [facility] [address] [place], [place] [id number] Urea nitrogen [Mass/Vol] 15 mg/dL Normal 7-25 [facility] [employer] Comment on above: Performed By: #### E SR CBCDOREEN, CMP #### [facility] [address] [place], [place] [id number] RBC Sedimentation Rateon ESR (Bld) [Velocity] 7.00 mm/h Normal 0.00-30.00 [facility] [employer] Comment on above: Performed By: #### E SR CBCAD, CMP #### [facility] [address] [place], [place] [id number] NOÉ DIAGNOSTIC RTon 09-18-20 [facility] ic NOÉ SCREENINGon 02-20-2021 [facility] ED NOTEon 12-21-2020 ED NOTE HNO ID: [id number] Author: Yehuda MoranRn) ZAINA Alfaro Service: Nursing Author Type: Registered Nurse Type: ED Notes Filed: 12/21/2020 1:54 PM Note Text: AAOX3. Equal/even resp rate. . Discharge instructions hi-lighted and reviewed with pt, pt verbalized understanding. Will follow-up with physician as instructed. No questions/concerns at time of discharge. Ambulated at discharge without difficulty. [facility] ED NOTE HNO ID: [id number] Author: Yehuda Bassett) ZAINA Alfaro Service: Nursing Author Type: Registered Nurse Type: ED Notes Filed: 12/21/2020 1:00 PM Note Text: Pt is taking home meds, recheck VS in 30-40 minutes [facility] ED PROV NOTEon 12-21-2020 ED PROV NOTE HNO ID: [id number] Author: Mirta Sharma Service: Emergency Medicine Author Type: Physician Media Monitor Type: ED Provider Notes Filed: 12/21/2020 2:02 PM Note Text: ED Provider Note Patient Name: Mary Dempsey SERVICE DATE: 12/21/20 History Patient presents with: Hypertension 65-year-old female with history of hypertension, presents to the ED today for elevated blood pressure. Patient has been on lisinopril for several years. She does report significantly elevated blood pressure on Thursday of this week. She was symptomatic at home with headache and generalized weakness, blood pressure was 214/120. She was seen at an outside hospital at that time and spent 1 night in the ICU for what sounds like hypertensive emergency. She had full work-up (brings documentation with her) including CT head, echo, carotid ultrasound which were all unremarkable. She was on 2 blood pressure drips , but states that her pressure continued to remain elevated when the drips were stopped. She was started on metoprolol and also given Xanax to go home with. She was told in addition to her blood pressure medications to take Xanax twice daily for this. She denies any actual anxiety. At this time, she is completely asymptomatic. She checked her blood pressure at home and the monitor read error and therefore she thought that her blood pressure was too low. She was concerned about taking her metoprolol and lisinopril and therefore comes to the ED for evaluation. She currently does not have a PCP was unable to call them for clarification on her medication and therefore presents here. Specifically, she denies headache, change in vision, chest pain, shortness of breath, weakness or numbness. History provided by: Patient parts interpreter used: No PAST MEDICAL HISTORY Diagnosis Date - Essential hypertension, benign - Rheumatoid arthritis(714.0) x 15 years PAST SURGICAL HISTORY Procedure Laterality Date - APPENDECTOMY 1960 age 5 - BX OF BREAST; NEEDLE CORE 10/28/2004 right breast; positive - MASTEC PARTIAL W AXILL NODE REMOV 11-29-04 right FAMILY HISTORY Problem Relation Age of Onset - Breast Cancer Paternal Aunt diagnosed at age 78 - Cancer Other no known family h/o ovarian cancer - Cancer Mother Pancreatic - Stroke Father Social History Tobacco Use - Smoking status: Never Smoker Substance and Sexual Activity - Alcohol use: No - Drug use: No - Sexual activity: Yes Partners: Male ALLERGIES No Known Allergies Review of Systems Constitutional: Negative for chills, fatigue and fever. Eyes: Negative for photophobia and visual disturbance. Respiratory: Negative for shortness of breath. Cardiovascular: Negative for chest pain and palpitations. Gastrointestinal: Negative for abdominal pain, nausea and vomiting. Musculoskeletal: Negative for back pain and neck pain. Skin: Negative. Neurological: Negative for dizziness, seizures, syncope, facial asymmetry, weakness, light-headedness, numbness and headaches. Hematological: Does not bruise/bleed easily. Psychiatric/Behavior al: Negative. Physical Exam BP 154/81 Pulse 71 Temp (Src) 97.9 (Tympanic) Resp 16 Ht 5' 5 (1.65m) Wt 150 lb (68.0kg) SpO2 97% BMI 24.96 kg/(m2). O2 Therapy: Room Air Physical Exam Vitals and nursing note reviewed. Constitutional: Appearance: She is not ill-appearing or diaphoretic. HENT: Head: Normocephalic and atraumatic. Cardiovascular: Rate and Rhythm: Normal rate and regular rhythm. Pulmonary: Effort: Pulmonary effort is normal. Breath sounds: Normal breath sounds. Abdominal: Palpations: Abdomen is soft. Tenderness: There is no abdominal tenderness. Musculoskeletal: General: No swelling. Normal range of motion. Right lower leg: No edema. Left lower leg: No edema. Neurological: Mental Status: She is alert and oriented to person, place, and time. Psychiatric: Mood and Affect: Mood normal. Diagnostic Testing ED Labs Ordered and Reviewed - No data to display Procedures ED Course / Clinical Impression Clinical Impressions as of Dec 21 1401 Essential hypertension Feared condition not demonstrated MDM / Disposition / Plan 65-year-old female who presents to the ED with elevated blood pressure. She has known history of hypertension and has been on lisinopril for years. She was hospitalized on Thursday in the ICU at [facility] for what sounds to be hypertensive emergency. Her blood pressure was 214/120. She had a headache and felt like she could not lift her arms. Was seen at that time and had extensive work-up including EKG, labs as well as CT head, echo, carotid ultrasound which were all unremarkable. Patient states that metoprolol was added onto her lisinopril, however her blood pressure cuff read error this morning and she was concerned about taking her medication and therefore comes into the ED for evaluation. In addition, she is questioning the use of Xanax which she was told to take twice a day for her elevated blood pressure as well. She is not having any anxiety and does not feel that this was appropriate management. She is completely asymptomatic at this point including absence of headache, change in vision, syncope, chest pain, shortness of breath or weakness/numbness. Her exam is entirely benign. Her blood pressure is slightly elevated at 159/93, however she has no concern for hypertensive urgency/emergency or endorgan damage given she is asymptomatic at this time. I do not feel that she needs repeat work-up given she had extensive work-up less than 48 hours ago which was all unremarkable, however I did offer it given the patient's concerns. However, patient agrees and does not feel that she needs repeat testing. She does have her home medication with her, takes dose of metoprolol and lisinopril. Repeat blood pressure 154/81. I do not feel that she requires a Xanax for treatment of hypertension and she was instructed not to take this unless necessary for anxiety. She is requesting new PCP, she was given an appointment for follow-up next Thursday. Patient can return to ED for any worsening symptoms or elevated blood pressure. SIGNATURE: GAMAL Barragan I (Gamal) Edith 12/21/20 1402 Normal [facility] CBC (INCLUDES DIFF/PLT)on Basophils (Bld) [#/Vol] 0.028 10*3/uL Normal 0-200 [facility] Comment on above: Performed By: #### 1 0231, 809, 6399 #### [facility] [address], [address] [place] [address] Vacuum System Tester: Delano Olea MD Basophils/100 WBC (Bld) 0.4 % Normal [facility] Comment on above: Performed By: #### 1 0231, 809, 6399 #### [facility] [address] [address] , [address] [place] [address] Vacuum System Tester: Delano Olea MD Eosinophils (Bld) [#/Vol] 0.097 10*3/uL Normal 15-500 [facility] Comment on above: Performed By: #### 1 0231, 809, 6399 #### [facility] [address] [address] , [address] [place] [address] Vacuum System Tester: Delano Olea MD Eosinophils/100 WBC (Bld) 1.4 % Normal [facility] Comment on above: Performed By: #### 1 0231, 809, 6399 #### [facility] [address] [address] , [address] [place] [address] Vacuum System Tester: Delano Olea MD Erythrocyte distribution width (RBC) [Ratio] 13.1 % Normal 11.0-15.0 [facility] Comment on above: Performed By: #### 1 0231, 809, 6399 #### [facility] [address] [address] [place] [address] Vacuum System Tester: Delano Olea MD Hematocrit (Bld) [Volume fraction] 39.8 % Normal 35.0-45.0 [facility] Comment on above: Performed By: #### 1 0231, 809, 6399 #### [facility] [address] [place] , [address] [place] [address] Vacuum System Tester: Delano Olea MD Hemoglobin (Bld) [Mass/Vol] 13.1 g/dL Normal 11.7-15.5 [facility] Comment on above: Performed By: #### 1 023, 809, 6399 #### [facility] [address] [place] , [address] [place] [address] Vacuum System Tester: Delano Olea MD Lymphocytes (Bld) [#/Vol] 1.691 10*3/uL Normal 850-3900 [facility] Comment on above: Performed By: #### 1 023, 80, 6399 #### [facility] [address] [place] , [address] [place] [address] Vacuum System Tester: Delano Olea MD Lymphocytes/100 WBC (Bld) 24.5 % Normal [facility] Comment on above: Performed By: #### 1 230, 80, 6399 #### [facility]-[address], [address] [place] [address] Vacuum System Tester: Delano Olea MD MCH (RBC) [Entitic mass] 28.4 pg Normal 27.0-33.0 [facility] Comment on above: Performed By: #### 1 023, 809, 6399 #### [facility] [address] [place] [address] Vacuum System Tester: Delano Olea MD MCHC (RBC) [Mass/Vol] 32.9 g/dL Normal 32.0-36.0 [facility] Comment on above: Performed By: #### 1 023, 809, 6399 #### [facility] [address] [place] , [address] [place] [address] Vacuum System Tester: Delano Olea MD MCV (RBC) [Entitic vol] 86.1 fL Normal 80.0-100.0 [facility] Comment on above: Performed By: #### 1 023, 809, 6399 #### [facility] [address] [place] , [address] [place] [address] Vacuum System Tester: Delano Olea MD Monocytes (Bld) [#/Vol] 0.497 10*3/uL Normal 200-950 [facility] Comment on above: Performed By: #### 1 0231, 809, 6399 #### [facility] [address] [place] , [address] [place] [address] Vacuum System Tester: Delano Olea MD Monocytes/100 WBC (Bld) 7.2 % Normal [facility] Comment on above: Performed By: #### 1 0231, 809, 6399 #### [facility] [address] [place] , [address] [place] [address] Vacuum System Tester: Delano Olea MD Neutrophils (Bld) [#/Vol] 4.589 10*3/uL Normal 2098-2839 [facility] Comment on above: Performed By: #### 1 023, 809, 6399 #### [facility] [address] [place] , [address] [place] [address] Vacuum System Tester: Delano Olea MD Neutrophils/100 WBC (Bld) 66.5 % Normal [facility] Comment on above: Performed By: #### 1 023, 809, 6399 #### [facility] [address] [place] , [address] [place] [address] Vacuum System Tester: Delano Olea MD Platelet mean volume (Bld) [Entitic vol] 9.8 fL Normal 7.5-12.5 [facility] Comment on above: Performed By: #### 1 023, 809, 6399 #### [facility] [address] [place] , [address] [place] [address] Vacuum System Tester: Delano Olea MD Platelets (Bld) [#/Vol] 190 10*3/uL Normal 140-400 [facility] Comment on above: Performed By: #### 1 0231, 809, 6399 #### [facility] [address], [address] [place] [address] Vacuum System Tester: Delano Olea MD RBC (Bld) [#/Vol] 4.62 10*6/uL Normal 3.80-5.10 [facility] Comment on above: Performed By: #### 1 0231, 809, 6399 #### [facility]-[address], [address] [place] [address] Vacuum System Tester: Delano Olea MD WBC (Bld) [#/Vol] 6.9 10*3/uL Normal 3.8-10.8 [facility] Comment on above: Performed By: #### 1 0231, 809, 6399 #### [facility], [address] [place] [address] Vacuum System Tester: Delano Olea MD COMPREHENSIVE METABOLIC PANE [facility] 12-01-2019 Albumin [Mass/Vol] 4.5 g/dL Normal 3.6-5.1 [facility] Comment on above: Order Comment: FASTI NG:NO FASTING: NO Performed By: #### 1 0231, 809, 6399 #### [facility], [address] [place] [address] Vacuum System Tester: Delano Olea MD Albumin/Globulin [Mass ratio] 1.9 (calc) Normal 1.0-2.5 [facility] Comment on above: Order Comment: FASTI NG:NO FASTING: NO Performed By: #### 1 023, 809, 6399 #### [facility], [address] [place] [address] Vacuum System Tester: Delano Olea MD ALP [Catalytic activity/Vol] 72 U/L Normal 37-153 [facility] Comment on above: Order Comment: FASTI NG:NO FASTING: NO Performed By: #### 1 0231, 809, 6399 #### [facility], [address] [place] [address] Vacuum System Tester: Delano Olea MD ALT [Catalytic activity/Vol] 27 U/L Normal 6-29 [facility] Comment on above: Order Comment: FASTI NG:NO FASTING: NO Performed By: #### 1 0231, 809, 6399 #### [facility], [address] [place] [address] Vacuum System Tester: Delano Olea MD AST [Catalytic activity/Vol] 22 U/L Normal 10-35 [facility] Comment on above: Order Comment: FASTI NG:NO FASTING: NO Performed By: #### 1 0231, 809, 6399 #### [facility], [address] [place] [address] Vacuum System Tester: Delano Olea MD Bilirubin [Mass/Vol] 0.5 mg/dL Normal 0.2-1.2 [facility] Comment on above: Order Comment: FASTI NG:NO FASTING: NO Performed By: #### 1 023, 809, 6399 #### [facility], [address] [place] [address] Vacuum System Tester: Delano Olea MD Calcium [Mass/Vol] 9.8 mg/dL Normal 8.6-10.4 [facility] Comment on above: Order Comment: FASTI NG:NO FASTING: NO Performed By: #### 1 023, 80, 6399 #### [facility], [address] [place] [address] Vacuum System Tester: Delano Olea MD Chloride [Moles/Vol] 104 mmol/L Normal 98-110 [facility] Comment on above: Order Comment: FASTI NG:NO FASTING: NO Performed By: #### 1 023, 80, 6399 #### [facility], [address] [place] [address] Vacuum System Tester: Delano Olea MD CO2 [Moles/Vol] 32 mmol/L Normal 20-32 [facility] Comment on above: Order Comment: FASTI NG:NO FASTING: NO Performed By: #### 1 023, 809, 6399 #### [facility], [address] [place] [address] Vacuum System Tester: Delano Olea MD Creatinine [Mass/Vol] 0.65 mg/dL Normal 0.50-0.99 [facility] Comment on above: Order Comment: FASTI NG:NO FASTING: NO Result Comment: For patients >49 years of age, the reference limit for Creatinine is approximately 13% higher for people identified as -Indian. Performed By: #### 1 023, 809, 6399 #### [facility]-[address] , [address] [place] [address] Vacuum System Tester: Delano Olea MD eGFR NON-AFR. TANZANIAN 94 mL/min/1.73m2 Normal > OR = 60 [facility] Comment on above: Order Comment: FASTI NG:NO FASTING: NO Performed By: #### 1 0231, 809, 6399 #### [facility], [address] [place] [address] Vacuum System Tester: Delano Olea MD GFR/1.73 sq M predicted among blacks MDRD (S/P/Bld) [Vol rate/Area] 109 mL/min/{1.73_m2} Normal > OR = 60 [facility] Comment on above: Order Comment: FASTI NG:NO FASTING: NO Performed By: #### 1 0231, 809, 6399 #### [facility], [address] [place] [address] Vacuum System Tester: Delano Olea MD Globulin (S) [Mass/Vol] 2.4 g/dL (calc) Normal 1.9-3.7 [facility] Comment on above: Order Comment: FASTI NG:NO FASTING: NO Performed By: #### 1 0231, 809, 6399 #### [facility], [address] [place] [address] Vacuum System Tester: Delano Olea MD Glucose [Mass/Vol] 95 mg/dL Normal 65-139 [facility] Comment on above: Order Comment: FASTI NG:NO FASTING: NO Result Comment: Non-fasting reference interval Performed By: #### 1 0231, 809, 6399 #### [facility]-[address], [address] [place] [address] Vacuum System Tester: Delano Olea MD Potassium [Moles/Vol] 3.4 mmol/L Low 3.5-5.3 [facility] Comment on above: Order Comment: FASTI NG:NO FASTING: NO Performed By: #### 1 0231, 809, 6399 #### [facility]-[address], [address] [place] [address] Vacuum System Tester: Delano Olea MD Protein [Mass/Vol] 6.9 g/dL Normal 6.1-8.1 [facility] Comment on above: Order Comment: FASTI NG:NO FASTING: NO Performed By: #### 1 0231, 809, 6399 #### [facility], [address] [place] [address] Vacuum System Tester: Delano Olea MD Sodium [Moles/Vol] 142 mmol/L Normal 135-146 [facility] Comment on above: Order Comment: FASTI NG:NO FASTING: NO Performed By: #### 1 0231, 809, 6399 #### [facility]-[address], [address] [place] [address] Vacuum System Tester: Delano Olea MD Urea nitrogen [Mass/Vol] 11 mg/dL Normal 7-25 [facility] Comment on above: Order Comment: FASTI NG:NO FASTING: NO Performed By: #### 1 0231, 809, 6399 #### [facility], [address] [place] [address] Vacuum System Tester: Delano Olea MD Urea nitrogen/Creatinine [Mass ratio] NOT APPLICABLE Normal 6-22 [facility] Comment on above: Order Comment: FASTI NG:NO FASTING: NO Performed By: #### 1 0231, 809, 6399 #### [facility]-[address], [address] [place] [address] Vacuum System Tester: Delano Olea MD SED RATE BY MODIFIED BOBBI Mcclellan 12-01-2019 SED RATE BY MODIFIED [place] 6 mm/h Normal < OR = 30 [facility] Comment on above: Performed By: #### 1 0231, 809, 6399 #### [facility]-[address], [address] [place] [address] Vacuum System Tester: Delano Olea MD Vital Signs Date Time Vital Sign Value Performing Clinician Mery dockery 12-28-2023 14:05-0400 Body weight 71.6 kg Shakeel Abbott MD Work Phone: [facility] 12-28-2023 14:05-0400 Diastolic blood pressure 78 mm[Hg] Shakeel Abbott MD Work Phone: [facility] 12-28-2023 14:05-0400 Heart rate 88 /min Shakeel Abbott MD Work Phone: [facility] 12-28-2023 14:05-0400 SaO2% (BldA) [Mass fraction] 98 % Shakeel Abbott MD Work Phone: [facility] 12-28-2023 14:05-0400 Systolic blood pressure 140 mm[Hg] Shakeel Abbott MD Work Phone: [facility] 03-24-2022 11:49-0400 Diastolic blood pressure 98 mm[Hg] Lena Mcclellan PA-C Work Phone: [facility] 03-24-2022 11:49-0400 Systolic blood pressure 172 mm[Hg] Lena Mcclellan PA-C Work Phone: [facility] 03-24-2022 11:37-0400 Body weight 70.9 kg Lena Mcclellan PA-C Work Phone: [facility] 03-24-2022 11:37-0400 Heart rate 91 /min Lena Mcclellan PA-C Work Phone: [facility] 03-24-2022 11:37-0400 SaO2% (BldA) [Mass fraction] 99 % Lena Mcclellan PA-C Work Phone: [facility] Encounters Encounter Date Encounter Type Care Provider Facility Start: 12-28-2023 End: 12-28-2023 ambulatory SHAKEEL ABBOTT Facility:[facility] Start: 12-28-2023 End: 12-28-2023 Patient encounter procedure Shakeel Abbott MD Work Phone: [facility] [place] Comment on above: Medicare annual well ness visit, subsequent (Primary Dx); Screening for colon cancer; Hypertension, essential; SHYLA (generalized anxiety disorder); Hypercalcemia; Encounter for screening mammogram for malignant neoplasm of breast; Hyperlipidemia, mixed; Seronegative rheumatoid arthritis (HCC) Start: 12-01-2023 End: 12-01-2023 ambulatory SHAKEEL ABBOTT Facility:[facility] Start: 11-25-2023 Refill Shakeel Abbott MD Work Phone: [facility] [place] Comment on above: Refill Request Start: 04-29-2023 Documentation procedure Mammog chris Coordinator [facility] Start: 04-29-2023 Letter encounter Mammography Coordinator DRISCOLL ANCILLARY AREA NOT LISTED Start: 04-28-2023 ambulatory SHAKEEL ABBOTT Facility:[facility] Start: 04-28-2023 End: 04-28-2023 Subsequent hospital visit by physician Mammo/Bone Density [facility] Comment on above: Encounter for screen ing for osteoporosis [Z13.820] Start: 01-29-2023 ambulatory Shakeel Abbott MD Work Phone: [facility] [place] Comment on above: Blood tests Start: 11-20-2022 End: 11-21-[address] DOCTOR CALLAHAN Facility: Start: 05-26-2022 End: 05-27-[address] DOCTOR CALLAHAN Facility: Start: 04-30-2022 Documentation procedure Mammog chris Coordinator [facility] Start: 04-30-2022 Letter encounter Mammography Coordinator DRISCOLL ANCILLARY AREA NOT LISTED Start: 03-24-2022 End: 03-24-2022 Patient encounter procedure Lena Mcclellan PA-C Work Phone: [facility] [place] Comment on above: Hypertension, essent ial (Primary Dx); Hyperlipidemia, mixed; Seronegative rheumatoid arthritis (HCC); SHYLA (generalized anxiety disorder); Screening for colorectal cancer; Encounter for screening for malignant neoplasm of breast, unspecified screening modality Start: 02-11-2022 ambulatory Shakeel Abbott MD Work Phone: [facility] [place] Start: 09-18-2021 End: 09-18-2021 Subsequent hospital visit by physician Diagnostic Mammo [facility] Comment on above: Abnormal mammogram [ R92.8] Start: 02-20-2021 End: 02-20-2021 Subsequent hospital visit by physician Screen Mammo [facility] Comment on above: Screening mammogram, encounter for [Z12.31] Procedures Date Procedure Procedure Detail Performing Clinician Start: 12-01-2023 Lipid 1996 panel - S norma or Plasma Shakeel Abbott MD Work Phone: Start: 04-28-2023 Mammography Mammograph y Coordinator Start: 04-30-2022 Mammography Mammograph y Coordinator Start: 03-20-2022 Adult depression screening assessment Lena Mcclellan PA-C Work Phone: Start: 02-17-2022 Lipid 1996 panel - S norma or Plasma [facility] Start: 09-18-2021 Diagnostic mammograp hy computer-aided detcj uni Amalia Conner ACCOUNTING BOOKKEEPER.SUPERVISOR [employer] Work Phone: Start: 02-20-2021 End: 02-20-2021 Mammography Amalia Conner ACCOUNTING BOOKKEEPER.SUPER[employer]OR [employer] Work Phone: Start: 12-24-2020 Adult depression screening assessment Shakeel Abbott MD Work Phone: Plan of Treatment Date Care Activity Detail Author Start: 11-30-2028 Lipid panel Lipid Screening [facility] Start: 02-17-2027 Lipid 1996 panel - Serum or Plasma Lipid Screening [facility] Start: 02-17-2027 Lipid panel Lipid Screening [facility] Start: 02-17-2027 LIPID SCREEN LIPID SCREEN [facility] Start: 11-30-2026 [facility] Start: 08-27-2026 LIPID SCREEN LIPID SCREEN [facility] Start: 02-17-2025 DIABETES SCREEN DIABETES SCREEN [place] Start: 02-17-2025 Diabetes Screening Diabetes Screenin g [facility] Start: 12-27-2024 Annual PCP Team Order Dispatcher Chief shelli Disease Visit Annual PCP Team Chronic Disease Visit [facility] Start: 12-27-2024 Covid-19 Vaccine ( season) Covid-19 Vaccine ( season) [facility] Comment on above: Postponed from 05/29 (Declined at this time) Start: 12-27-2024 Pneumococcal Vaccine : 65+ (1 of 1 - PCV) Pneumococcal Vaccine: 65+ (1 of 1 - PCV) [facility] Comment on above: Postponed from 02/24 (Declined at this time) Start: 12-27-2024 Urine microalbumin profile DTaP,Tdap,Td Vaccine (1 - Tdap) [facility] Comment on above: Postponed from 02/24 (Declined at this time) Start: 05-29-2024 Influenza vaccination Influenz a Vaccine (Season Ended) [facility] Start: 04-28-2024 Mammography [facility] Start: 04-28-2024 Screening for malign ant neoplasm of breast Mammogram Screening [facility] Start: 03-28-2024 End: 06-27-2024 25-hydroxyvitamin D3 [Mass/volume] in Serum or Plasma VITAMIN D 25 HYDROXY Lab Routine Hypercalcemia Expected: 03/28/2024, Expires: 06/27/2024 [facility] Work Phone: Comment on above: Expected: 03/28/2024 , Expires: 06/27/2024 Start: 03-28-2024 End: 06-27-2024 Basic metabolic 2000 panel - Serum or Plasma BASIC METABOLIC PNL Lab Routine Hypercalcemia Expected: 03/28/2024, Expires: 06/27/2024 [facility] Work Phone: Comment on above: Expected: 03/28/2024 , Expires: 06/27/2024 Start: 03-28-2024 End: 06-27-2024 Calcium.ionized [Moles/volume] in Blood CALCIUM IONIZED BLOOD Lab Routine Hypercalcemia Expected: 03/28/2024, Expires: 06/27/2024 [facility] Work Phone: Comment on above: Expected: 03/28/2024 , Expires: 06/27/2024 Start: 03-28-2024 End: 06-27-2024 Parathyrin.intact [Mass/volume] in Serum or Plasma PTH INTACT BLD Lab Routine Hypercalcemia Expected: 03/28/2024, Expires: 06/27/2024 [facility] Work Phone: Comment on above: Expected: 03/28/2024 , Expires: 06/27/2024 Start: 02-21-2024 DIABETES SCREEN DIABETES SCREEN [place] Start: 12-28-2023 End: 03-28-2024 COLOGUARD COLOGUARD Lab Routine Screening for colon cancer Expected: 12/28/2023, Expires: 03/28/2024 [facility] Work Phone: Comment on above: Expected: 12/28/2023 , Expires: 03/28/2024 Start: 12-06-2023 ANNUAL PCP TEAM MEDICAL LAB TECH INSTRUCTOR SHELLI DISEASE VISIT ANNUAL PCP TEAM CHRONIC DISEASE VISIT [facility] Start: 12-06-2023 COVID-19 VACCINE (3 - Booster for Pfizer series) COVID-19 VACCINE (3 - Booster for Pfizer series) [facility] Comment on above: Postponed from 01/25 (Declined at this time) Start: 12-06-2023 COVID-19 VACCINE (3 - Pfizer series) COVID-19 VACCINE (3 - Pfizer series) [facility] Comment on above: Postponed from 01/25 (Declined at this time) Start: 12-06-2023 Pneumococcal Vaccine : 65+ (1 - PCV) Pneumococcal Vaccine: 65+ (1 - PCV) [facility] Comment on above: Postponed from 02/24 (Declined at this time) Start: 12-06-2023 Pneumococcal Vaccine : 65+ (1 of 1 - PCV) Pneumococcal Vaccine: 65+ (1 of 1 - PCV) [facility] Comment on above: Postponed from 02/24 (Declined at this time) Start: 12-06-2023 PNEUMOCOCCAL: 65+ (1 - PCV) PNEUMOCOCCAL: 65+ (1 - PCV) [facility] Comment on above: Postponed from 02/24 (Declined at this time) Start: 12-06-2023 SHINGRIX VACCINE (1 of 2) SHINGRIX VACCINE (1 of 2) [facility] Comment on above: Postponed from 02/24 (Declined at this time) Start: 12-06-2023 Urine microalbumin profile [facility] Comment on above: Postponed from 02/24 (Declined at this time) Start: 11-25-2023 End: 2024 CBC panel - Blood by Automated count CBC Lab Routine Hypertension, essential Expected: 11/25/2023, Expires: 2024 [facility] Work Phone: Comment on above: Expected: 11/25/2023 , Expires: 2024 Start: 11-25-2023 End: 2024 Comprehensive metabolic 2000 panel - Serum or Plasma COMP METABOLIC PANEL Lab Routine Hypertension, essential Expected: 11/25/2023, Expires: 2024 [facility] Work Phone: Comment on above: Expected: 11/25/2023 , Expires: 2024 Start: 11-25-2023 End: 2024 Lipid 1996 panel - Serum or Plasma LIPID PANEL BASIC Lab Routine Hypertension, essential Expected: 11/25/2023, Expires: 2024 [facility] Work Phone: Comment on above: Expected: 11/25/2023 , Expires: 2024 Start: 09-28-2023 Advance Directive Discussion Advance Directive Discussion [facility] Start: 09-28-2023 Depression Assessment Depression Ass essment [facility] Start: 05-29-2023 Covid-19 Vaccine () Covid-19 Vaccine () [facility] Start: 05-29-2023 Influenza vaccination [facility] Start: 04-30-2023 Mammography MAMMOGRAM [facility] Start: 03-24-2023 ANNUAL PCP TEAM MEDICAL LAB TECH INSTRUCTOR SHELLI DISEASE VISIT ANNUAL PCP TEAM CHRONIC DISEASE VISIT [facility] Start: 03-20-2023 Adult depression screening assessment DEPRESSION SCREENING [facility] Start: 01-29-2023 End: 03-31-2023 CBC panel - Blood by Automated count CBC Lab Routine Hypertension, essential Expected: 01/29/2023, Expires: 03/31/2023 [facility] Work Phone: Comment on above: Expected: 01/29/2023 , Expires: 03/31/2023 Start: 01-29-2023 End: 03-31-2023 Comprehensive metabolic 2000 panel - Serum or Plasma COMP METABOLIC PANEL Lab Routine Hypertension, essential Expected: 01/29/2023, Expires: 03/31/2023 [facility] Work Phone: Comment on above: Expected: 01/29/2023 , Expires: 03/31/2023 Start: 01-29-2023 End: 03-31-2023 Lipid 1996 panel - Serum or Plasma LIPID PANEL BASIC Lab Routine Hyperlipidemia, mixed Expected: 01/29/2023, Expires: 03/31/2023 [facility] Work Phone: Comment on above: Expected: 01/29/2023 , Expires: 03/31/2023 Start: 08-27-2022 ANNUAL PCP TEAM MEDICAL LAB TECH INSTRUCTOR SHELLI DISEASE VISIT ANNUAL PCP TEAM CHRONIC DISEASE VISIT [facility] Start: 05-29-2022 Influenza vaccination [facility] Start: 02-20-2022 Mammography MAMMOGRAM [facility] Start: 02-11-2022 End: 04-13-2022 Basic metabolic 2000 panel - Serum or Plasma BASIC METABOLIC PNL Lab Routine Hypertension, essential Expected: 02/11/2022, Expires: 04/13/2022 [facility] Work Phone: Comment on above: Expected: 02/11/2022 , Expires: 04/13/2022 Start: 02-11-2022 End: 04-13-2022 SCHEDULE LAB TESTING SCHEDULE LAB TESTING Lab Routine Expected: 02/11/2022, Expires: 04/13/2022 [facility] Work Phone: Comment on above: Expected: 02/11/2022 , Expires: 04/13/2022 Start: 12-24-2021 Adult depression screening assessment DEPRESSION SCREENING [facility] Start: 09-28-2021 ADVANCE DIRECTIVE DISCUSSION ADVANCE DIRECTIVE DISCUSSION [facility] Start: 12-28-2020 COVID-19 VACCINE (3 - Pfizer risk series) COVID-19 VACCINE (3 - Pfizer risk series) [facility] Start: 02-25-2020 PNEUMOVAX AGE 65 AND OVER WITH 5YR LOOKBACK (#1) PNEUMOVAX AGE 65 AND OVER WITH 5YR LOOKBACK (#1) [facility] Start: 2015 RSV Vaccine (1 - 1-d ose 60+ series) RSV Vaccine (1 - 1-dose 60+ series) [facility] Start: 2005 SHINGRIX VACCINE (1 of 2) SHINGRIX VACCINE (1 of 2) [facility] Start: 02-25-2000 COLOGUARD (FIT-DNA) COLOGUARD (FIT-D NA) [facility] Start: 02-25-2000 Colonoscopy COLONOSCOPY [facility] Start: 02-25-2000 COLORECTAL CANCER SCREENING COLORECTAL CANCER SCREENING [facility] Start: 02-25-[address] COLONOGRAPHY [place] Start: 02-25-2000 FECAL OCCULT BLOOD FECAL OCCULT BLOO D [facility] Start: 02-25-2000 Screening for malign ant neoplasm of colon [facility] Start: 02-25-2000 [facility] Start: 1974 SHINGRIX VACCINE (1 of 2) SHINGRIX VACCINE (1 of 2) [facility] Start: 1974 Urine microalbumin profile DTAP,TDAP,TD (1 - Tdap) [facility] Start: 1973 BP CONTROLLED (<130/80) BP CONTROLLE D (<130/80) [facility] Start: 1961 PNEUMOCOCCAL: 65+ (1 - PCV) PNEUMOCOCCAL: 65+ (1 - PCV) [facility] End: 01-26-2025 DBT Breast - bilateral screening NOÉ SCREENING W MANDA Radiology Routine Encounter for screening mammogram for malignant neoplasm of breast 1 Occurrences starting 12/28/2023 until 01/26/2025 [facility] Work Phone: Comment on above: 1 Occurrences starti ng 12/28/2023 until 01/26/2025 DXA-AXIAL SKELETON DXA-AXIAL SKE LETON Radiology Routine Encounter for screening for osteoporosis Asymptomatic postmenopausal status 04/28/2023 3:16 PM EDT [facility] Work Phone: End: 04-28-2023 NOÉ SCREENING W MANDA [facility] Work Phone: Comment on above: ONCE for 1 Occurrenc es starting 04/28/2023 until 04/28/2023 End: 03-24-2023 Screening colonoscopy COLONOSCOPY SCREENING Endoscopy Routine Screening for colorectal cancer 1 Occurrences starting 03/24/2022 until 03/24/2023 [facility] Work Phone: Comment on above: 1 Occurrences starti ng 03/24/2022 until 03/24/2023 End: 04-23-2023 Screening mammography bi 2-view breast inc cad NOÉ SCREENING Radiology Routine Encounter for screening for malignant neoplasm of breast, unspecified screening modality 1 Occurrences starting 03/24/2022 until 04/23/2023 [facility] Work Phone: Comment on above: 1 Occurrences starti ng 03/24/2022 until 04/23/[facility]23 [facility] Immunizations Immunization Date Immunization Notes Care Provider Fa cili 11-30-2020 COVID-19 vaccine, ag e 12+ yr (PFIZER-BIONTECH - PURPLE TOP) Shakeel Abbott MD Work Phone: [facility] 11-09-2020 COVID-19 vaccine, ag e 12+ yr (PFIZER-BIONTECH - PURPLE TOP) Shakeel Abbott MD Work Phone: [facility] Payers Date Payer Category Payer Medicare MEDICARE MEDICAR E A AND B [id number] 2020-Present [phone] [place] [address] Medicare [id number] 2020 Medicare MEDICARE MEDICAR E A AND B [id number] 2020-Present [phone] [place] [address] Medicare [id number] 2020 Unknown MMO MMO MEDICARE SUPPLEMENT [id number] 2020-Present [phone] [address] [place] [address] Indemnity [id number] 2020 Unknown MMO MMO MEDICARE SUPPLEMENT [id number] 2020-Present [phone] [address] [place] [address] Indemnity [id number] 1959 Medicare [id number] 1959 Unknown [id number] 1955 Unknown [id number] 1955 Unknown [id number] Social History Date Type Detail Facility Start: 12-25-2020 End: 12-05-2022 Tobacco smoking status NHIS Never smoked tobacco [facility] Start: 08-27-2021 End: 12-28-2023 Alcohol intake Current non-drinker of alcohol (finding) [facility] Start: 12-24-2020 End: 12-01-2022 History SDOH Alcohol Frequency 1 [facility] Start: 12-24-2020 End: 12-01-2022 History SDOH Social Connections Phone 5 [facility] Start: 12-24-2020 History SDOH Social Connections Get Together 4 [facility] Start: 12-24-2020 End: 12-01-2022 History SDOH Social Connections [employer] 3 [facility] Start: 12-24-2020 End: 12-01-2022 History SDOH Stress 2 [facility] Start: 12-24-2020 Education 15 [facility] Start: 1955 Sex Assigned At Female [facility] Start: 07-28-2021 End: 04-30-2022 Exposure to SARS-CoV-2 (event) Not sure [facility] Start: 12-25-2020 End: 12-05-2022 Tobacco use and exposure Smokeless tobacco non-user [facility] Work Phone: Start: 12-01-2022 History SDOH Alcohol Std Drinks 0 [facility] Start: 12-01-2022 End: 04-28-2023 History of Social function [facility] Start: 12-01-2022 End: 04-28-2023 Social connection and isolation panel [facility] Do you belong to any clubs or organizations such as scientology groups, unions, fraternal or athletic groups, or school groups? Yes [facility] Are you now , , , , never or living with a partner? [facility] How often to you hav e a drink containing alcohol? Never [facility] How many standard dr inks containing alcohol do you have on a typical day? Patient does not drink [facility] Do you feel stress - tense, restless, nervous, or anxious, or unable to sleep at night because your mind is troubled all the time - these days [OSQ] Not at all [facility] (I/We) worried wheth er (my/our) food would run out before (I/we) got money to buy more. Never true [facility] In the past 12 month s, was there a time when you were not able to pay the mortgage or rent on time? No [facility] Start: 12-24-2020 Gender identity Identifies as female gender (finding) [facility] Start: 12-24-2020 Sexual orientation Heterosexual (finding) [facility] Do you feel stress - tense, restless, nervous, or anxious, or unable to sleep at night because your mind is troubled all the time - these days [OSQ] Only a little [facility] Clinical Notes 11-15-2004 to 12-28-2023 Patient InstructionsShakeel Abbott MD - 12/28/2023 2:30 PM EDTTelephone Encounter - Shakeel Abbott MD - 11/25/2023 12:28 PM ESTTelephone Encounter - Janet Solomon MA - 11/25/2023 7:48 AM EST Note Date & Type Note Facility 12-28-2023 Note HNO ID: [id number] Author: SHAKEEL ABBOTT MD Service: ? Author Type: Physician Type: Progress Notes Filed: 12/28/2023 15:21 Note Text: Mary Dempsey is a 68 year old female here for a Medicare wellness visit. Medicare Health Risk Assessment General Health Very good Exercise: Minutes/Day 40 min Exercise: Days/Week 3 days- walking in the summer Alcohol: Daily Use Never Alcohol: Drinks/Day Patient does not drink Alcohol: 6 or more drinks Never Feel off balance No Concerns: Teeth/Dentures No Concerns: Sexual function No Troubled by feelings None of the above Frequency: Eating healthy diet Nearly every day ADLs requiring help Safety precautions in home/vehicle Yes Smoke, vape, chews tobacco No Difficulty hearing No Difficulty seeing No Current Providers Specialists: I have reviewed specialist-related care of the patient in the medical record. Sees rheumatology in [place] Medical/Family history review Reviewed and updated problem list, medical/surgical/family/social history, medications, and allergies. Opioid use review Opioid Medications (last 90 days) No data to display Depression screening Depression Screening PHQ-2 Score 12/28/2023 0 Depression screening tool completed and reviewed. Based on score and interview, patient is not at risk for depression. Screening tool discussed with patient, and I recommended no further intervention at this time. Cognitive screening Mini Cog Score: 5 Cognitive screening reviewed and no further action needed (score 3-5) Functional Observation Was the patient's Timed Up AND Go test unsteady or ? 12 seconds? No Advance Care Planning Surrogate decision maker and/or advance care plan documented Measurements BP 140/78 Pulse 88 Wt 157 lb 13.6 oz (71.6kg) SpO2 98% Vision Screening: Follows with optometry/ophthalmology Assessment/Plan Medicare annual wellness visit, subsequent () - Counseled on healthy diet and regular exercise - Fall avoidance information provided - Personalized prevention plan provided Additional Concerns The following concerns were also discussed with the patient: HTN: home readings are normotensive 121/78 this morning on her cuff No changes in health in the past year PHYSICAL EXAM BP 140/78 Pulse 88 Wt 71.6 kg (157 lb 13.6 oz) SpO2 98% BMI 27.62 kg/m? GENERAL: well appearing, alert, in no acute distress CARDIOVASCULAR: regular rate and rhythm. No murmur, rubs or gallops. PULMONARY: clear to auscultation, no wheezing, rhonchi, or crackles ABDOMEN: soft, non-tender, non-distended, no masses or organomegaly EXTREMITY: no lower extremity edema. No skin discoloration. ASSESSMENT/PLAN: 1. Medicare annual wellness visit, subsequent - ICD9: V70.0, ICD10: Z00.00 (primary diagnosis) See above Would like cologuard instead of colonoscopy, ordered Mammogram ordered Pap done last year - ADVANCE CARE PLAN DISCUSSION - DEPRESSION SCREENING/ASSESSMENT 2. Screening for colon cancer - ICD9: V76.51, ICD10: Z12.11 - COLOGUARD 3. Hypertension, essential - ICD9: 401.9, ICD10: I10 - Home blood pressure readings controlled, home cuff has been verified in our office previously - Continue current medications - AMLODIPINE 5 MG TABLET - LISINOPRIL 20 MG-HYDROCHLOROTHIAZIDE 12.5 MG TABLET 4. SHYLA (generalized anxiety disorder) - ICD9: 300.02, ICD10: F41.1 Continue using Xanax sparingly as needed - ALPRAZOLAM 0.25 MG TABLET 5. Hypercalcemia - ICD9: 275.42, ICD10: E83.52 Repeat labs in 3 months - CALCIUM IONIZED BLOOD - BASIC METABOLIC PNL - PTH INTACT BLD - VITAMIN D 25 HYDROXY 6. Encounter for screening mammogram for malignant neoplasm of breast - ICD9: V76.12, ICD10: Z12.31 - NOÉ SCREENING W MANDA 7. Hyperlipidemia, mixed - ICD9: 272.2, ICD10: E78.2 Continue rosuvastatin - ROSUVASTATIN 40 MG TABLET 8. Seronegative rheumatoid arthritis (HCC) - ICD9: 714.0, ICD10: M06.00 Following with outside practicing dermatologist, stable on Plaquenil Shakeel Abbott MD [facility] 12-28-2023 Instructions Shakeel Abbott MD - 12/28/2023 2:31 PM EDT Screening schedule The following prevention plan is recommended: BP Controlled (<130/80) Never done Colorectal Cancer Screening Never done Shingrix Vaccine(1 of 2) Never done RSV Vaccine(1 - 1-dose 60+ series) Never done Advance Directive Discussion due on 09/28/2023 Depression Assessment due on 09/28/2023 Annual PCP Team Chronic Disease Visit due on 12/06/2023 WHAT YOU CAN DO TO PREVENT FALLS Many falls can be prevented. By making some changes, you can lower your chances of falling. Four things YOU can do to prevent falls for you* and your caregiver 1. Begin a regular exercise program Exercise is one of the most important ways to lower your chances of falling. It makes you stronger and helps you feel better. Exercises that improve balance and coordination (like [employer]) are the most helpful. Lack of exercise leads to weakness and increases your chances of falling. Ask your doctor or health care provider about the best type of exercise program for you. 2. Have your health care provider review your medicines Have your doctor or pharmacist review all the medicines you take, even utsj-fox-[id number] medicines. As you get older, the way medicines work in your body can change. Some medicines, or combinations of medicines, can make you sleepy or dizzy and can cause you to fall. 3. Have your vision checked Have your eyes checked by an eye doctor at least once a year. You may be wearing the wrong glasses or have a condition like glaucoma or cataracts that limits your vision. Poor vision can increase your chances of falling. 4. Make your home safer About half of all falls happen at home. To make your home safer: Remove things you can trip over (like papers, books, clothes, and shoes) from stairs and places where you walk. Remove small throw rugs or use double-sided tape to keep the rugs from slipping. Keep items you use often in cabinets you can reach easily without using a step stool. Have grab bars put in next to your toilet and in the tub or shower. Use non-slip mats in the bathtub and on shower floors. Improve the lighting in your home. As you get older, you need brighter lights to see well. Hang light-weight curtains or shades to reduce glare. Have handrails and lights put in on all staircases. Wear shoes both inside and outside the house. Avoid going barefoot or wearing slippers. For more information, contact: Centers for Disease Control and Prevention www.cdc.gov/injury * This information may not apply if you have certain medical conditions. documented in this encounter [facility] 12-28-2023 History of Presen t illness Narrative Images from the original note were not included. Mary Dempsey is a 68 year old female here for a Medicare wellness visit. Medicare Health Risk Assessment General Health Very good Exercise: Minutes/Day 40 min Exercise: Days/Week 3 days- walking in the summer Alcohol: Daily Use Never Alcohol: Drinks/Day Patient does not drink Alcohol: 6 or more drinks Never Feel off balance No Concerns: Teeth/Dentures No Concerns: Sexual function No Troubled by feelings None of the above Frequency: Eating healthy diet Nearly every day ADLs requiring help Safety precautions in home/vehicle Yes Smoke, vape, chews tobacco No Difficulty hearing No Difficulty seeing No Current Providers Specialists: I have reviewed specialist-related care of the patient in the medical record. Sees rheumatology in [place] Medical/Family history review Reviewed and updated problem list, medical/surgical/family/social history, medications, and allergies. Opioid use review Opioid Medications (last 90 days) No data to display Depression screening Depression Screening PHQ-2 Score 12/28/2023 0 Depression screening tool completed and reviewed. Based on score and interview, patient is not at risk for depression. Screening tool discussed with patient, and I recommended no further intervention at this time. Cognitive screening Mini Cog Score: 5 Cognitive screening reviewed and no further action needed (score 3-5) Functional Observation Was the patient's Timed Up & Go test unsteady or ? 12 seconds? No Advance Care Planning Surrogate decision maker and/or advance care plan documented Measurements BP 140/78 Pulse 88 Wt 157 lb 13.6 oz (71.6kg) SpO2 98% Vision Screening: Follows with optometry/ophthalmology Assessment/Plan Medicare annual wellness visit, subsequent () - Counseled on healthy diet and regular exercise - Fall avoidance information provided - Personalized prevention plan provided Additional Concerns The following concerns were also discussed with the patient: HTN: home readings are normotensive 121/78 this morning on her cuff No changes in health in the past year PHYSICAL EXAM BP 140/78 Pulse 88 Wt 71.6 kg (157 lb 13.6 oz) SpO2 98% BMI 27.62 kg/m GENERAL: well appearing, alert, in no acute distress CARDIOVASCULAR: regular rate and rhythm. No murmur, rubs or gallops. PULMONARY: clear to auscultation, no wheezing, rhonchi, or crackles ABDOMEN: soft, non-tender, non-distended, no masses or organomegaly EXTREMITY: no lower extremity edema. No skin discoloration. ASSESSMENT/PLAN: 1. Medicare annual wellness visit, subsequent - ICD9: V70.0, ICD10: Z00.00 (primary diagnosis) See above Would like cologuard instead of colonoscopy, ordered Mammogram ordered Pap done last year - ADVANCE CARE PLAN DISCUSSION - DEPRESSION SCREENING/ASSESSMENT 2. Screening for colon cancer - ICD9: V76.51, ICD10: Z12.11 - COLOGUARD 3. Hypertension, essential - ICD9: 401.9, ICD10: I10 - Home blood pressure readings controlled, home cuff has been verified in our office previously - Continue current medications - AMLODIPINE 5 MG TABLET - LISINOPRIL 20 MG-HYDROCHLOROTHIAZIDE 12.5 MG TABLET 4. SHYLA (generalized anxiety disorder) - ICD9: 300.02, ICD10: F41.1 Continue using Xanax sparingly as needed - ALPRAZOLAM 0.25 MG TABLET 5. Hypercalcemia - ICD9: 275.42, ICD10: E83.52 Repeat labs in 3 months - CALCIUM IONIZED BLOOD - BASIC METABOLIC PNL - PTH INTACT BLD - VITAMIN D 25 HYDROXY 6. Encounter for screening mammogram for malignant neoplasm of breast - ICD9: V76.12, ICD10: Z12.31 - NOÉ SCREENING W MANDA 7. Hyperlipidemia, mixed - ICD9: 272.2, ICD10: E78.2 Continue rosuvastatin - ROSUVASTATIN 40 MG TABLET 8. Seronegative rheumatoid arthritis (HCC) - ICD9: 714.0, ICD10: M06.00 Following with outside practicing dermatologist, stable on Plaquenil Shakeel Abbott MD documented in this encounter [facility] 11-25-2023 Miscellaneous Notes Please advise patient to have labs prior to visit. Shakeel Abbott MD Last OV 12/05/22 Next OV 12/28/23 Patient phones requesting refills as follows: Requested Prescriptions Pending Prescriptions Disp Refills lisinopril-hydroCHLOROthiazide (ZESTORETIC) 20-12.5 mg per tablet [Pharmacy Med Name: LISINOPRIL-HCTZ 20-12.5 MG TAB] 90 tablet 3 Sig: take 1 tablet by mouth every day Please review and advise. Janet Solomon MA documented in this encounter [facility] 04-29-2023 Miscellaneous Notes [address] [address] April 29, 2023 PID: [id number] Mary Dempsey [address] [place] [address] [address] [place] [address] Dear Ms. Dempsey, We are pleased to inform you that the results of your recent breast imaging exam on 04/28/2023 are normal. Early detection of cancer is very important. We also understand recommendations regarding breast cancer screening are controversial. Please discuss with your primary care provider which strategy is best for you and whether a mammogram is right for you. Your imaging studies and report will be kept on file at [facility] as part of your permanent medical record and are available for your continuing care. Thank you for allowing us to help in meeting your health care needs. Sincerely, Dr. Sam Interpreting Radiologist [facility] (Normal over 40) documented in this encounter [facility] 04-28-2023 Note HNO ID: [id number] Author: Mary Khan RT(Joey) Service: Radiology Author Type: Technologist Type: Progress Notes Filed: 04/28/2023 3:18 PM Note Text: Radiology Service Progress Note PATIENT NAME: Mary Dempsey DATE OF SERVICE: April 28, 2023 TIME: 3:18 PM PATIENT IDENTITY VERIFICATION COMPLETED USING TWO (2) IDENTIFIERS: Name and Date of confirmed by patient verbally. FALL SCREENING: Has the patient had 2 falls in the last year or 1 fall with injury or currently using an Ambulatory Assistive Device (Walker, Cane, Wheelchair, Crutches, etc.)? No PATIENT GENDER DATA: Female. status: : No status: N/A PATIENT RELEVANT IMPLANT DATA REVIEWED: Not Applicable RADIOLOGY DEPARTMENT: Mammography PERIPHERAL IV DATA: Not applicable SIGNED BY: LOVELY Bliss) April 28, 2023 3:18 PM [facility] 04-28-2023 Note HNO ID: [id number] Author: Mary Khan RT(R) Service: Radiology Author Type: Technologist Type: Progress Notes Filed: 04/28/2023 3:17 PM Note Text: Radiology Service Progress Note PATIENT NAME: Mary Dempsey DATE OF SERVICE: April 28, 2023 TIME: 3:17 PM PATIENT IDENTITY VERIFICATION COMPLETED USING TWO (2) IDENTIFIERS: Name and Date of confirmed by patient verbally. FALL SCREENING: Has the patient had 2 falls in the last year or 1 fall with injury or currently using an Ambulatory Assistive Device (Walker, Cane, Wheelchair, Crutches, etc.)? No PATIENT GENDER DATA: Female. status: : No status: N/A PATIENT RELEVANT IMPLANT DATA REVIEWED: Not Applicable RADIOLOGY DEPARTMENT: Bone Density PERIPHERAL IV DATA: Not applicable SIGNED BY: RT Ruthy(R) April 28, 2023 3:17 PM [facility] 04-28-2023 History of Presen t illness Narrative Radiology Service Progress Note PATIENT NAME: aMry Dempsey DATE OF SERVICE: April 28, 2023 TIME: 3:18 PM PATIENT IDENTITY VERIFICATION COMPLETED USING TWO (2) IDENTIFIERS: Name and Date of confirmed by patient verbally. FALL SCREENING: Has the patient had 2 falls in the last year or 1 fall with injury or currently using an Ambulatory Assistive Device (Walker, Cane, Wheelchair, Crutches, etc.)? No PATIENT GENDER DATA: Female. status: : No status: N/A PATIENT RELEVANT IMPLANT DATA REVIEWED: Not Applicable RADIOLOGY DEPARTMENT: Mammography PERIPHERAL IV DATA: Not applicable SIGNED BY: RT Ruthy(Joey) April 28, 2023 3:18 PM documented in this encounter [facility] 04-28-2023 History of Presen t illness Narrative Radiology Service Progress Note PATIENT NAME: Mary Dempsey DATE OF SERVICE: April 28, 2023 TIME: 3:17 PM PATIENT IDENTITY VERIFICATION COMPLETED USING TWO (2) IDENTIFIERS: Name and Date of confirmed by patient verbally. FALL SCREENING: Has the patient had 2 falls in the last year or 1 fall with injury or currently using an Ambulatory Assistive Device (Walker, Cane, Wheelchair, Crutches, etc.)? No PATIENT GENDER DATA: Female. status: : No status: N/A PATIENT RELEVANT IMPLANT DATA REVIEWED: Not Applicable RADIOLOGY DEPARTMENT: Bone Density PERIPHERAL IV DATA: Not applicable SIGNED BY: RT Ruthy(R) April 28, 2023 3:17 PM documented in this encounter [facility] 01-29-2023 Miscellaneous Notes Orders pended for signature. Patient would CBC, Comp Metabolic, and Lipid panel (fasting) reordered so that she will be able to have done when she comes in for colonoscopy on 02/06/23. Please review and advise. documented in this encounter [facility] 04-30-2022 [place] [address] April 30, 2022 PID: [id number] Mary Dempsey [address] [place] [address] Dear Ms. Dempsey, We are pleased to inform you that the results of your recent breast imaging exam on 04/30/2022 are normal. Early detection of cancer is very important. We also understand recommendations regarding breast cancer screening are controversial. Please discuss with your primary care provider which strategy is best for you and whether a mammogram is right for you. Your imaging studies and report will be kept on file at [facility] as part of your permanent medical record and are available for your continuing care. Thank you for allowing us to help in meeting your health care needs. Sincerely, Dr. García Interpreting Radiologist [facility] (Normal over 40) documented in this encounter [facility] 03-24-2022 Instructions Lena Mcclellan PA-C - 03/24/2022 11:50 AM EDT ASSESSMENT/PLAN: 1. Hypertension, essential - ICD9: 401.9, ICD10: I10 (primary diagnosis) - Very high but hx of white coat HTN - Home readings controlled - Continue current meds, monitor BP once daily - Goal BP < 130/80 - Limit salt/caffeine, continue regular exercise - Follow up 6 months 2. Hyperlipidemia, mixed - ICD9: 272.2, ICD10: E78.2 - LDL greatly improved, continue rosuvastatin - Healthy diet/exercise encouraged 3. Seronegative rheumatoid arthritis (HCC) - ICD9: 714.0, ICD10: M06.00 - Stable on plaquenil - Follows with rheumatology 4. SHYLA (generalized anxiety disorder) - ICD9: 300.02, ICD10: F41.1 - Xanax refilled, again stressed importance of limiting use. Take only prn for high stress/flying/imaging, etc - Continue exercise and stress reduction - ALPRAZOLAM 0.25 MG TABLET 5. Screening for colorectal cancer - ICD9: V76.51, V76.41, ICD10: Z12.11, Z12.12 - COLONOSCOPY SCREENING 6. Encounter for screening for malignant neoplasm of breast, unspecified screening modality - ICD9: V76.10, ICD10: Z12.39 - NOÉ SCREENING Lena Mcclellan PA-C documented in this encounter [facility] 03-24-2022 History of Presen t illness Narrative This note was created using Hubsphere[employer]. Subjective Mary Dempsey is a 67 year old female. HPI 128/82 at home this morning. Monitors at least once daily. avg < 130/80 -denies chest pain, palpitations, SOB, LAURA, orthopnea, BLE edema, diaphoresis, LH, presyncope/syncope or N/V. -has known white coat htn -checks directly after OV, BP always greatly improved -exercising regularly, eating healthy diet. Walking regularly. No exertional cp or LH Would like xanax refilled. Takes this sparingly-for flying or when she gets anxious prior to appointments/imaging, etc. Still has 3 tabs last from last rx refilled in aug. Needs colonoscopy. No concerns, BMs normal. Denies hematochezia, melena, black tarry stools. Declines vaccines today Review of Systems see hpi Objective BP 172/98 Pulse 91 Wt 70.9 kg (156 lb 4.8 oz) SpO2 99% BMI 27.35 kg/m Physical Exam Constitutional: Appearance: Normal appearance. Cardiovascular: Rate and Rhythm: Normal rate and regular rhythm. Heart sounds: Normal heart sounds. Pulmonary: Effort: Pulmonary effort is normal. No respiratory distress. Breath sounds: Normal breath sounds. No wheezing. Musculoskeletal: Right lower leg: No edema. Left lower leg: No edema. Neurological: Mental Status: She is alert. Psychiatric: Mood and Affect: Mood normal. Assessment and Plan 1. Hypertension, essential - ICD9: 401.9, ICD10: I10 (primary diagnosis) - Very high but hx of white coat HTN - Home readings controlled - Continue current meds, monitor BP once daily - Goal BP < 130/80 - Limit salt/caffeine, continue regular exercise - Follow up 6 months 2. Hyperlipidemia, mixed - ICD9: 272.2, ICD10: E78.2 - LDL greatly improved, continue rosuvastatin - Healthy diet/exercise encouraged 3. Seronegative rheumatoid arthritis (HCC) - ICD9: 714.0, ICD10: M06.00 - Stable on plaquenil - Follows with rheumatology 4. SHYLA (generalized anxiety disorder) - ICD9: 300.02, ICD10: F41.1 - Xanax refilled, again stressed importance of limiting use. Take only prn for high stress/flying/imaging, etc - Continue exercise and stress reduction - ALPRAZOLAM 0.25 MG TABLET 5. Screening for colorectal cancer - ICD9: V76.51, V76.41, ICD10: Z12.11, Z12.12 - COLONOSCOPY SCREENING 6. Encounter for screening for malignant neoplasm of breast, unspecified screening modality - ICD9: V76.10, ICD10: Z12.39 - NOÉ SCREENING Lena Mcclellan PA-C documented in this encounter [facility] 09-18-2021 History of Presen t illness Narrative Radiology Service Progress Note PATIENT NAME: Mary Dempsey DATE OF SERVICE: September 18, 2021 TIME: 10:46 AM PATIENT IDENTITY VERIFICATION COMPLETED USING TWO (2) IDENTIFIERS: Name and Date of confirmed by patient verbally. FALL SCREENING: Has the patient had 2 falls in the last year or 1 fall with injury or currently using an Ambulatory Assistive Device (Walker, Cane, Wheelchair, Crutches, etc.)? No PATIENT GENDER DATA: Female. status: : No status: NO. PATIENT RELEVANT IMPLANT DATA REVIEWED: Not Applicable RADIOLOGY DEPARTMENT: Mammography PERIPHERAL IV DATA: Not applicable SIGNED BY: RT Katlyn(R) September 18, 2021 10:46 AM documented in this encounter [facility] 02-20-2021 History of Presen t illness Narrative Radiology Service Progress Note PATIENT NAME: Mary Dempsey DATE OF SERVICE: February 20, 2021 TIME: 11:05 AM PATIENT IDENTITY VERIFICATION COMPLETED USING TWO (2) IDENTIFIERS: Name and Date of confirmed by patient verbally. FALL SCREENING: Has the patient had 2 falls in the last year or 1 fall with injury or currently using an Ambulatory Assistive Device (Walker, Cane, Wheelchair, Crutches, etc.)? No PATIENT GENDER DATA: Female. status: : No status: NO. PATIENT RELEVANT IMPLANT DATA REVIEWED: Yes RADIOLOGY DEPARTMENT: Mammography PERIPHERAL IV DATA: Not applicable SIGNED BY: RT Tristan(R) February 20, 2021 11:05 AM documented in this encounter [facility] 11-15-2004 History of Past i llness Narrative Problem Noted Date Resolved Date Malignant neoplasm of female breast 11/15/2004 03/27/2008 documented as of this encounter (statuses as of 02/14/2022) [facility] History of Past illness Narrative* Problem Noted Date Resolved Date Malignant neoplasm of female breast 11/15/2004 03/27/2008 documented as of this encounter (statuses as of 03/24/2022) [address] History of Past illness Narrative* Problem Noted Date Resolved Date Malignant neoplasm of female breast 11/15/2004 03/27/2008 documented as of this encounter (statuses as of 05/02/2022) [address] History of Past illness Narrative* Problem Noted Date Resolved Date Malignant neoplasm of female breast 11/15/2004 03/27/2008 documented as of this encounter (statuses as of 01/29/2023) [address] History of Past illness Narrative* Problem Noted Date Diagnosed Date Resolved Date Malignant neoplasm of female breast 11/15/2004 03/27/2008 documented as of this encounter (statuses as of 04/29/2023) [address] History of Past illness Narrative* Problem Noted Date Diagnosed Date Resolved Date Malignant neoplasm of female breast 11/15/2004 03/27/2008 documented as of this encounter (statuses as of 04/29/2023) [address] History of Past illness Narrative* Problem Noted Date Diagnosed Date Resolved Date Malignant neoplasm of female breast 11/15/2004 03/27/2008 documented as of this encounter (statuses as of 05/01/2023) [address] History of Past illness Narrative* Problem Noted Date Diagnosed Date Resolved Date Malignant neoplasm of female breast 11/15/2004 03/27/2008 documented as of this encounter (statuses as of 05/08/2023) [address] History of Past illness Narrative* Problem Noted Date Diagnosed Date Resolved Date Malignant neoplasm of female breast 11/15/2004 03/27/2008 documented as of this encounter (statuses as of 07/30/2023) [address] History of Past illness Narrative* Problem Noted Date Diagnosed Date Resolved Date Malignant neoplasm of female breast 11/15/2004 03/27/2008 documented as of this encounter (statuses as of 11/26/2023) [address] History of Past illness Narrative* Problem Noted Date Diagnosed Date Resolved Date Malignant neoplasm of female breast 11/15/2004 03/27/2008 documented as of this encounter (statuses as of 12/29/2023) [facility] note* Diagnosis Hypertension, essential Unspecified essential hypertension documented in this encounter [facility] note* Diagnosis Hypertension, essential- Primary Unspecified essential hypertension Hyperlipidemia, mixed Mixed hyperlipidemia Seronegative rheumatoid arthritis (HCC) Rheumatoid arthritis SHYLA (generalized anxiety disorder) Generalized anxiety disorder Encounter for screening for malignant neoplasm of breast, unspecified screening modality documented in this encounter [facility] note* Diagnosis Hypertension, essential- Primary Unspecified essential hypertension Hyperlipidemia, mixed Mixed hyperlipidemia documented in this encounter [facility] note* Diagnosis Encounter for screening for osteoporosis Special screening for osteoporosis Asymptomatic postmenopausal status documented in this encounter [facility] note* Diagnosis Encounter for screening mammogram for malignant neoplasm of breast Other screening mammogram documented in this encounter [facility] note* Diagnosis Screening mammogram, encounter for documented in this encounter [facility] note* Diagnosis Abnormal mammogram Abnormal mammogram, unspecified documented in this encounter [facility] note* Diagnosis Hypertension, essential- Primary Unspecified essential hypertension documented in this encounter [facility] note* Diagnosis Medicare annual wellness visit, subsequent- Primary [facility]ine [facility] Screening for colon cancer Special screening for malignant neoplasms, colon Hypertension, essential Unspecified essential hypertension SHYLA (generalized anxiety disorder) Generalized anxiety disorder Hypercalcemia Encounter for screening mammogram for malignant neoplasm of breast Other screening mammogram Hyperlipidemia, mixed Mixed hyperlipidemia Seronegative rheumatoid arthritis (HCC) Rheumatoid arthritis documented in this encounter [facility] for referral (narrative)* Diagnostic Procedure Only (Routine) - Authorized Specialty Diagnoses / Procedures Referred By Darilea t Referred To Contact [facility] Diagnoses Encounter for screening for malignant neoplasm of breast, unspecified screening modality Procedures NOÉ SCREENING SCREENING MAMMOGRAPHY BI 2-VIEW BREAST INC CAD Lena Mcclellan PA-C [address] [place] [address] [facility] [address] [place] [address] Referral ID Status Reason Start Date Expiration Date Visits Requested Visits Authorized [id number] Authorized Auto-Generat ed Referral 03/24/2022 04/23/2023 1 1 * Outpatient Procedure (Routine) - Authorized Specialty Diagnoses / Procedures Referred By Dariela norton Referred To Contact [facility] Diagnoses Screening for colorectal cancer Procedures COLONOSCOPY SCREENING COLONOSCOPY FLX DX W/COLLJ SPEC WHEN Lena Haney PA-C [address] [address] [facility] [address] [place] [address] Referral ID Status Reason Start Date Expiration Date Visits Requested Visits Authorized [id number] Authorized Auto-Generat ed Referral 03/24/2022 03/24/2023 1 1 [facility] for referral (narrative)* Diagnostic Procedure Only (Routine) - Pending Review Specialty Diagnoses / Procedures Referred By Dariela norton Referred To Contact [facility] Diagnoses Encounter for screening mammogram for malignant neoplasm of breast Procedures NOÉ SCREENING W MANDA SCREENING DIGITAL BREAST TOMOSYNTHESIS BI SCREENING MAMMOGRAPHY BI 2-VIEW BREAST INC Shakeel Stringer MD [address] [address] [facility] [address] [place] [address] Referral ID Status Reason Start Date Expiration Date Visits Requested Visits Authorized [id number] Pending Review Auto-Generat ed Referral 12/28/2023 01/26/2025 1 1 [facility] for visit Narrative* Diagnostic Procedure Only (Routine) - Closed Specialty Diagnoses / Procedures Referred By Dariela norton Referred To Contact [facility] Diagnoses Encounter for screening mammogram for malignant neoplasm of breast Procedures NOÉ SCREENING SCREENING MAMMOGRAPHY BI 2-VIEW BREAST INC Shakeel Stringer MD [address] [address] [facility] [address] [place] [address] Referral ID Status Reason Start Date Expiration Date V isits Requested Visits Authorized [id number] Closed Auto-Generate d Referral 04/28/2023 01/04/2024 1 1 [facility] Summary Purpose Family History No Family History Records FoundNo Family History Records FoundNo Family History Records FoundNo Family History Records FoundNo Family History Records FoundNo Family History Records Found Advance Directives No Advanced Directives Records FoundDocuments on File Type Date Recorded Patient Continuous Improvement Coach Expl anation Advance Directive(s) Advance Directive(s) 12/21/2020 1:20 PM Documents on File Type Date Recorded Patient Continuous Improvement Coach Expl anation Advance Directive(s) Advance Directive(s) 12/21/2020 1:20 PM Additional Source Comments INFORMATION SOURCE (unrecogn ized section and content) DATE CREATED AUTHOR 12/01/2019 [facility] DATE CREATED AUTHOR AUTHOR'S ORGANIZ ATION 12/23/2020 [facility] DATE CREATED AUTHOR AUTHOR'S ORGANIZ ATION 12/18/2021 [facility] dical Specialist DATE CREATED AUTHOR AUTHOR'S ORGANIZ ATION 11/25/2022 [facility] DATE CREATED AUTHOR AUTHOR'S ORGANIZ ATION 05/01/2023 [facility] DATE CREATED AUTHOR AUTHOR'S ORGANIZ ATION 12/29/2023 [facility] Source Comments (unrecognize d section and content) In the event this informatio n is protected by the Federal Confidentiality of Alcohol and Drug Abuse Patient Records regulations: The Federal rules restrict any use of the information to criminally investigate or prosecute any alcohol or drug abuse patient.[facility] the event this information is protected by the Federal Confidentiality of Alcohol and Drug Abuse Patient Records regulations: The Federal rules restrict any use of the information to criminally investigate or prosecute any alcohol or drug abuse patient.[facility] the event this information is protected by the Federal Confidentiality of Alcohol and Drug Abuse Patient Records regulations: The Federal rules restrict any use of the information to criminally investigate or prosecute any alcohol or drug abuse patient.[facility] the event this information is protected by the Federal Confidentiality of Alcohol and Drug Abuse Patient Records regulations: The Federal rules restrict any use of the information to criminally investigate or prosecute any alcohol or drug abuse patient.[facility] the event this information is protected by the Federal Confidentiality of Alcohol and Drug Abuse Patient Records regulations: The Federal rules restrict any use of the information to criminally investigate or prosecute any alcohol or drug abuse patient.[facility] the event this information is protected by the Federal Confidentiality of Alcohol and Drug Abuse Patient Records regulations: The Federal rules restrict any use of the information to criminally investigate or prosecute any alcohol or drug abuse patient.[facility] the event this information is protected by the Federal Confidentiality of Alcohol and Drug Abuse Patient Records regulations: The Federal rules restrict any use of the information to criminally investigate or prosecute any alcohol or drug abuse patient.[facility] the event this information is protected by the Federal Confidentiality of Alcohol and Drug Abuse Patient Records regulations: The Federal rules restrict any use of the information to criminally investigate or prosecute any alcohol or drug abuse patient.[facility] the event this information is protected by the Federal Confidentiality of Alcohol and Drug Abuse Patient Records regulations: The Federal rules restrict any use of the information to criminally investigate or prosecute any alcohol or drug abuse patient.[facility] the event this information is protected by the Federal Confidentiality of Alcohol and Drug Abuse Patient Records regulations: The Federal rules restrict any use of the information to criminally investigate or prosecute any alcohol or drug abuse patient.[facility] the event this information is protected by the Federal Confidentiality of Alcohol and Drug Abuse Patient Records regulations: The Federal rules restrict any use of the information to criminally investigate or prosecute any alcohol or drug abuse patient.[facility] Care Teams (unrecognized sec tion and content) Solvent Recoverer Relationship Specialty Start Date End Date Shakeel Abbott MD [address] [place] [address] PCP - General Family Practice 05/13/21 Solvent Recoverer Relationship Specialty Start Date End Date Shakeel Abbott MD [address] [place] [address] PCP - General Family Practice 05/13/21 Solvent Recoverer Relationship Specialty Start Date End Date Shakeel Abbott MD [address] [place] [address] PCP - General Family Practice 05/13/21 Solvent Recoverer Relationship Specialty Start Date End Date Shakeel Abbott MD [address] [place] [address] PCP - General Family Medicine 05/13/21 Solvent Recoverer Relationship Specialty Start Date End Date Shakeel Abbott MD [address] [place] [address] PCP - General Family Medicine 05/13/21 Solvent Recoverer Relationship Specialty Start Date End Date Shakeel Abbott MD [address] [place] [address] PCP - General Family Medicine 05/13/21 Solvent Recoverer Relationship Specialty Start Date End Date Shakeel Abbott MD [address] [place] [address] PCP - General Family Medicine 05/13/21 Solvent Recoverer Relationship Specialty Start Date End Date Bre Person MD [address] [place] [address] PCP - General 11/01/04 03/22/21 Solvent Recoverer Relationship Specialty Start Date End Date Shakeel Abbott MD [address] [place] [address] PCP - General Family Medicine 05/13/21 Solvent Recoverer Relationship Specialty Start Date End Date Shakeel Abbott MD [address] [place] [address] PCP - General Family Medicine 05/13/21 Solvent Recoverer Relationship Specialty Start Date End Date Shakeel Abbott MD [address] [place] [address] PCP - General Family Medicine 05/13/21 Reason for Visit (unrecogniz ed section and content) Reason Comments Recheck 6 month for HTN. Sta shanell she has been feeling good. Sttes that her BP is usually good at home. Reason Comments Radiology Mammogram Reason Comments Refill Request Reason Comments Hypertension Medicare Wellness Exam FOR RECORDS PERTAINING TO PATIENTS WHO ARE OR HAVE BEEN ENROLLED IN A CHEMICAL DEPENDENCY/SUBSTANCEABUSE PROGRAM, SOME INFORMATION MAY BE OMITTED. This clinical summary was aggregated from multiple sources. Caution should be exercised in using it in the provision of clinical care. This summary normalizes information from multiple sources, and as a consequence, information in this document may materially change the coding, format and clinical context of patient data. In addition, data may be omitted in some cases. CLINICAL DECISIONS SHOULD BE BASED ON THE PRIMARY CLINICAL RECORDS. [facility]. provides no warranty or guarantee of the accuracy or completeness of information in this document.
[2024-03-08 07:40] LABS: Basophils Absolute Auto 0.1 10^3/uL (0.0-0.1); Basophils Percent Auto 0.9 % (0.2-2.0); Eosinophils Absolute Auto 0.1 10^3/uL (0.0-0.7); Hematocrit 37.9 % (36.0-48.0); Hemoglobin 12.2 g/dL (12.0-16.0); Immature Granulocytes Abs Auto 0.01 10^3/uL (0.00-0.03); Immature Granulocytes Pct Auto 0.1 % (0.0-0.5); Lymphocytes Absolute Auto 1.8 10^3/uL (1.2-3.8); Mean Corpuscular HGB Conc 32.2 g/dL (29.9-35.2); Mean Corpuscular Hemoglobin 27.6 pg (26.7-34.0); Mean Corpuscular Volume 85.7 fL (81.0-99.0); Mean Platelet Volume 9.3 fL (9.5-13.5); Monocytes Absolute Auto 0.6 10^3/uL (0.3-0.8); Monocytes Percent Auto 8.3 % (1.7-12.0); Neutrophils Absolute Auto 4.4 10^3/uL (1.4-6.5); Neutrophils Percent Auto 62.7 % (43.0-75.0); Platelet Count 249 10^3/uL (150-450); Red Blood Count 4.42 10^6/uL (4.20-5.40); Red Cell Distribution Width 13.1 % (11.0-15.0)
[2024-03-08 07:58] LABS: Erythrocyte Sedimentation Rate 14 mm/hr (<=30)
[2024-03-08 08:05] LABS: Alanine Aminotransferase 37 U/L (14-59); Albumin Level 3.5 g/dL (3.4-5.0); Alkaline Phosphatase 64 U/L (46-116); Anion Gap 9.8; Aspartate Amino Transferase 26 U/L (15-37); BUN Creatinine Ratio 18.2; Bilirubin Total 0.6 mg/dL (0.2-1.0); Calcium 8.8 mg/dL (8.5-10.1); Carbon Dioxide 31.7 mmol/L (21.0-32.0); Chloride 106 mmol/L (98-107); Estimated GFR (African America >60 (>=60); Estimated GFR (Non-African Ame >60 (>=60); Globulin 3.4 g/dL; Glucose 105 mg/dL (74-106); Potassium 3.5 mmol/L (3.5-5.1); Sodium 144 mmol/L (136-145); Total Protein 6.9 g/dL (6.4-8.2)
== END 2024-03-08 07:17 | disposition home or self-care (01) ==
LOC: LAB 07:18
PROVIDERS: Visit Provider Registered Nurse
DX: M05.79 Rheumatoid arthritis with rheumatoid factor of multiple sites without organ or systems involvement (principal); M19.91 Primary osteoarthritis, unspecified site; Z79.899 Other long term (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 therapy
CPT/HCPCS: 36415; 80053; 85025; 85652

== ENCOUNTER 2024-08-01 09:22 | Outpatient (OUT) | payer MEDICARE, OTHER, SELFPAY ==
--- OUTSIDE RECORDS SUMMARY | 2024-08-01 09:31 | XMS_ITS | CCD ---
Author Organization [facility] Care Team Providers Care Nutritional Services Host Name Role Phone Shakeel Abbott MD Primary Care Provider MISC, DR JEFFERSON Consulting Unavailable PERSON ., DR KASH Boogie Primary Care Unavailable SANCHEZ, DR ODONNELL Admitting Unavailable SANCHEZ, DR ODONNELL Attending Unavailable SANCHEZ, DR ODONNELL Consulting Unavailable MISC, DR JEFFERSON Admitting Unavailable MISC, DR JEFFERSON Consulting Unavailable MISC, DR JEFFERSON Attending Unavailable PERSON ., DR KASH Boogie Primary Care Unavailable Shakeel Abbott MD Primary Care Provider [phone] SCAR, SHAKEEL Referring Unavailable SCAR, SHAKEEL Primary Care Unavailable SCAR, SHAKEEL Referring Unavailable SCAR, SHAKEEL Primary Care Unavailable Kash Person MD Primary Care Provider [phone] Shakeel Abbott MD Primary Care Provider SCAR, SHAKEEL Primary Care Unavailable SCAR, SHAKEEL Referring Unavailable SCAR, SHAKEEL Primary Care Unavailable SCAR, SHAKEEL Referring Unavailable SCAR, SHAKEEL Primary Care Unavailable SCAR, SHAKEEL Attending Unavailable SCAR, SHAKEEL Primary Care Unavailable SCAR, SHAKEEL Referring Unavailable Medications Current Medications Medication Drug Class(es) Dates Sig (Normalized) Sig (Original) ALPRAZolam 0.25 mg oral tablet (11 sources) Benzodiazepine Start: 12-28-2023 End: 06-25-2024 take 1 tablet by mouth once daily as needed ALPRAZolam (XANAX) 0.25 mg tablet Indications: SHYLA (generalized anxiety disorder) Take 1 tablet by mouth once daily as needed for up to 180 days. Not taking 12/25/20 10 tablet 12/28/2023 06/25/2024 Active Start: 12-05-2022 End: 06-03-2023 [...] up to 90 days. Not taking 12/25/20 amLODIPine 5 mg oral tablet (15 sources) Dihydropyridine Calcium Channel Naz Start: End: take 1 tablet by mouth once daily [...] mg / lisinopril 20 mg oral tablet (16 sources) Thiazide Diuretic, Angiotensin Converting Enzyme Inhibitor Start: 005 End: 024 take 1 tablet by mouth once daily lisinopril-hydroCHL OROthiazide (ZESTORETIC) 20-12.5 mg per tablet Indications: Hypertension, essential Take 1 tablet by mouth once daily. 90 tablet 3 12/28/2023 Active Comment on above: Take 1 tablet by marlon th once daily. Take one(1) tablet d aily. take 1 tablet by marlon th every day hydroxychloroquine sulfate 200 mg oral tablet (14 sources) Antimalarial, Antirheumatic Agent Start: 005 PLAQUENIL 200 MG TABLET one tablet two times daily 0 11/07/2004 Active Comment on above: one tablet two times daily microencapsulated potassium chloride 20 meq extended release oral tablet (3 sources) Start: take 1 tablet by mouth once daily potassium chloride ER (KLOR-CON M20) 20 mEq tablet Indications: Hypokalemia Take 1 tablet by mouth once daily. 90 tablet 3 04/18/2024 Active rosuvastatin calcium 40 mg oral tablet (14 sources) HMG-CoA Reductase Inhibitor Start: 023 End: take 1 tablet by mouth once daily [...] 1 TABLET BY MARLON TH EVERY DAY Completed/Discontinued Medications Medication Drug Class(es) Dates Sig (Normalized) Sig (Original) lovastatin 20 mg oral tablet (1 source) HMG-CoA Reductase Inhibitor Start: 04-30-2009 End: 02-21-2021 LOVASTATIN 20 MG TAB Take one(1) tablet daily. 0 04/30/2009 02/21/2021 Discontinued Comment on above: Take one(1) tablet d aily. Problems Active Problems Problem Classification Problem Date Documented Date Episodic/Chronic Anxiety disorders (13 sources) Generalized anxiety disorder; Translations: [Generalized anxiety disorder] Onset: 03-24-2022 Chronic Disorders of lipid metabolism (17 sources) Mixed hyperlipidemia; Translations: [Mixed hyperlipidemia] Onset: 02-20-2021 02-20-2021 Chronic Essential hypertension (19 sources) Essential hypertension; Translations: [Essential (primary) hypertension] Onset: 02-20-2021 Chronic Fluid and electrolyte disorders (1 source) Hypokalemia; Translations: [Hypokalemia] 04-18-2024 Episodic Osteoarthritis (1 source) Primary osteoarthritis, unspecified site; Translations: [PRIMARY OSTEOARTHRITIS UNS SITE] Onset: 11-24-2022 Chronic Other aftercare (1 source) Other residency coordinator (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 therapy; Translations: [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 DRUG THERAPY] Onset: 11-24-2022 Episodic Other nutritional; endocrine; and metabolic disorders (1 source) Hypercalcemia; Translations: [Hypercalcemia] 12-28-2023 Chronic Other screening for suspected conditions (not mental disorders or infectious disease) (11 sources) Patient encounter status; Translations: [Encounter for other screening for malignant neoplasm of breast] Onset: 04-28-2023 Episodic Residual codes; unclassified (1 source) Postmenopausal state; Translations: [Asymptomatic menopausal state] 04-28-2023 Episodic Residual codes; unclassified (1 source) Asymptomatic menopausal state; Translations: [Asymptomatic postmenopausal status] Onset: 04-28-2023 Episodic Rheumatoid arthritis and related disease (20 sources) Seronegative rheumatoid arthritis; Translations: [Rheumatoid arthritis without rheumatoid factor, unspecified site] Onset: 02-20-2021 02-20-2021 Chronic Past or Other Problems Problem Classification Problem Date Documented Da te Episodic/Chronic Cancer of breast (13 sources) Malignant neoplasm of female breast; Translations: [Malignant neoplasm of unspecified site of unspecified female breast] Onset: 11-07-2004 Resolved: 03-27-2008 11-07-2004 Chronic Cancer of breast (4 sources) History of malignant neoplasm of breast; Translations: [Personal history of malignant neoplasm of breast] Onset: 11-07-2004 12-28-2023 Episodic Heart valve disorders (14 sources) Heart murmur; Translations: [Cardiac murmur, unspecified] Onset: 02-20-2021 02-20-2021 Episodic Results Test Name Value Interpretation Reference Range Facility [facility] [id number] Author: COORDINATOR, MAMMOGRAPHY, ? Service: ? Author Type: Physician Type: Letter Filed: 05/12/2024 19:03 Note Text: May 13, 2024 PID: [id number] Mary Dempsey [address] [place] [address] [address] [place] [address] Dear Ms. Dempsey, We are pleased to inform you that the results of your recent breast imaging exam on 05/11/2024 are normal. Breast tissue can be either dense or not dense. Dense tissue makes it harder to find breast cancer on a mammogram and also raises the risk of developing breast cancer. Your breast tissue is dense. In some people with dense tissue, other imaging tests in addition to a mammogram may help find cancers. Talk to your healthcare provider about breast density, risks for breast cancer, and your individual situation. Early detection of cancer is very important. We also understand recommendations regarding breast cancer screening are controversial. Please discuss with your primary care provider which strategy is best for you and whether a mammogram is right for you. Your imaging studies and report will be kept on file at [facility] as part of your permanent medical record and are available for your continuing care. Thank you for allowing us to help in meeting your health care needs. Sincerely, Dr. Lozano Interpreting Radiologist [facility] (Normal over 40) Normal [facility] SCREENING W TOMOon 05-11 [facility] SCREENING W MANDA * * *Final Report* * * DATE OF EXAM: May 11 2024 11:39AM LNW [id number] - NOÉ SCREENING W MANDA / PROCEDURE REASON: Encounter for screening mammogram for malignant neoplasm of breast * * * * Physician Interpretation * * * * RESULT: #[id number] - [facility] SCREENING W MANDA BILATERAL DIGITAL SCREENING MAMMOGRAM TOMOSYNTHESIS WITH CAD: 05/11/2024 HISTORY: Encounter For Screening Mammogram For Malignant Neoplasm Of Breast / Screening Mammogram-Patient reports NO symptoms. RESULT: TECHNIQUE: The study was acquired using full field digital technology and interpreted from soft copy. Digital Breast Tomosynthesis (DBT) images were obtained and used to assist in the interpretation of this examination. Current study was also evaluated with a Computer Aided Detection (CAD). Comparison is made to exams dated: 04/28/2023 mammogram, 04/30/2022 mammogram - [facility], 09/18/[facility], 03/14/2021 mammogram - [facility], and 02/20/2021 mammogram - [facility]. The breasts are heterogeneously dense, which may obscure small masses. There are benign post operative findings in the right breast. No significant masses, calcifications, or other findings are seen in either breast. There has been no significant interval change. IMPRESSION: BENIGN There is no mammographic evidence of malignancy. A 1 year screening mammogram is recommended. Carlo lee/vitor:05/12/2024 19:03:19 Spragger(s): RT Tristan(Joey)(M), [facility] letter sent: Normal over 40 Mammogram BI-RADS: Category 2: Benign Multiple national specialty organizations have released breast cancer screening guidelines for women at average risk for developing breast cancer - guidelines that are based on both evidence and opinion, yet differ on when to start and how often to screen for breast cancer. With representation from Breast Imaging, Internal Medicine, Women's Health, Family Medicine, and Medical/Surgical Oncology, the [facility] has carefully reviewed the data and reached [...] their providers when to stop screening mammograms. Fireworks Maker: Vitor Transcribe Date/Time: May 11 2024 11:26A Dictated by: CARLO LOZANO MD This examination was interpreted and the report reviewed and electronically signed by: CARLO LOZANO MD on May 12 2024 7:03PM EST [id number] N Normal [facility] 25(OH)D3 [facility] 2023 25-hydroxyvitamin D3 [Mass/Vol] 53.9 ng/mL Normal 31.0-80.0 [facility] Comment on above: Order Comment: Speci men Type: BLOOD SPECIMEN Ordering Facility: [facility] Address: [facility] [place] [address] Result Comment: Clas sification of 25 [place] Vitamin D status: Deficiency/Insufficiency: < or = 30 ng/ml. Sufficiency/Optimal Levels: 31-80 ng/mL Toxicity: > 100 ng/mL. Test performed by chemiluminescent immunoassay. Performed By: #### 1 989-3 #### [facility] CLIA [id number] [address] [facility] [place] [address] [place] Basic metabolic 2000 panelon 04-04-2024 Anion gap [Moles/Vol] 11 mmol/L Normal 8-15 [facility] Comment on above: Order Comment: Speci men Type: BLOOD SPECIMENOrdering Facility: [facility] Address: [address] [place] [address] Performed By: #### 2 4321-2 ####[facility] [id number] [place] [address] Calcium [Mass/Vol] 10.2 mg/dL Normal 8.5-10.2 [facility] Comment on above: Order Comment: Speci men Type: BLOOD SPECIMENOrdering Facility: [facility] Address: [address] [place] [address] Performed By: #### 2 4321-2 ####[facility] [id number] [place] [address] Chloride [Moles/Vol] 103 mmol/L Normal 98-107 [facility] Comment on above: Order Comment: Speci men Type: BLOOD SPECIMENOrdering Facility: [facility] Address: [address] [place] [address] Performed By: #### 2 4321-2 ####[facility] [id number] [place] [address] CO2 [Moles/Vol] 28 mmol/L Normal 22-30 [facility] Comment on above: Order Comment: Speci men Type: BLOOD SPECIMENOrdering Facility: [facility] Address: [address] [place] [address] Performed By: #### 2 4321-2 ####[facility] [id number] [place] [address] Creatinine [Mass/Vol] 0.74 mg/dL Normal 0.58-0.96 [facility] Comment on above: Order Comment: Speci men Type: BLOOD SPECIMENOrdering Facility: [facility] Address: [address] [place] [address] Performed By: #### 2 4321-2 ####[facility] [id number] [place] [address] Creatinine and Glomerular filtration rate.predicted panel (S/P/Bld) 88 mL/min/1.73m??? Normal >=60 [facility] Comment on above: Order Comment: Eric men Type: BLOOD SPECIMENOrdering Facility: [facility] Address: [address] [place] [address] Result Comment: Ambar mated Glomerular Filtration Rate [...] reflect actual GFR. Performed By: #### 2 4321-2 ####[facility] [id number] [place] [address] Glucose [Mass/Vol] 124 mg/dL High 74-99 [facility] Comment on above: Order Comment: Eric montez Type: BLOOD SPECIMENOrdering Facility: [facility] Address: [address] [place] [address] Result Comment: The [place] [employer] (ADA) provides guidance for cutoff [...] Standards of Medical Care in Diabetes 2016, [place] [employer]. Diabetes Care. 2016.39(Suppl 1). Performed By: #### 2 4321-2 ####[facility] [id number] [place] [address] Potassium [Moles/Vol] 3.5 mmol/L Low 3.7-5.1 [facility] Comment on above: Order Comment: Speci men Type: BLOOD SPECIMENOrdering Facility: [facility] Address: [address] [place] [address] Performed By: #### 2 4321-2 ####[facility] [id number] [place] [address] Sodium [Moles/Vol] 142 mmol/L Normal 136-144 [facility] Comment on above: Order Comment: Speci men Type: BLOOD SPECIMENOrdering Facility: [facility] Address: [address] [place] [address] Performed By: #### 2 4321-2 ####[facility] [id number] [place] [address] Urea nitrogen [Mass/Vol] 12 mg/dL Normal 7-21 [facility] Comment on above: Order Comment: Speci men Type: BLOOD SPECIMENOrdering Facility: [facility] Address: [address] [place] [address] Performed By: #### 2 4321-2 ####[facility] [id number] [place] [address] Calcium.ionized [Moles/Vol]o n 04-04-2024 Calcium.ionized (Bld) [Mass/Vol] 1.27 mmol/L Normal 1.08-1.30 [facility] Comment on above: Order Comment: Speci men Type: BLOOD SPECIMEN Ordering Facility: [facility] Address: [address] [place] [address] Performed By: #### 1 995-0 #### [facility] CLIA [id number] [address] [place] [address] [address] [place] Calcium.ionized adjusted to pH 7.4 (Bld) [Moles/Vol] 1.26 mmol/L Normal 1.08-1.30 [facility] Comment on above: Order Comment: Speci men Type: BLOOD SPECIMEN Ordering Facility: [facility] Address: [address] [place] [address] Performed By: #### 1 995-0 #### [facility] CLIA [id number] [address] [place] [address] [place] [address] [place] PTH-Intact SerPl-mCncon 07-0 Parathyrin.intact [Mass/Vol] 49 pg/mL Normal 15-65 [facility] Comment on above: Order Comment: Speci men Type: BLOOD SPECIMENOrdering Facility: [facility] Address: [address] [place] [address] Performed By: #### 2 731-8 ####[facility]IA [id number] [facility] [address] [place] CNOVon 12-28-2023 CNOV Office Visit (ANABELLPLN ) MARY DEMPSEY ([id number]) 1955 F Date Time Provider Department 12/28/23 [...] in the medical record. Sees rheumatology in [place] [facility]/Family history review Reviewed and updated problem list, medical/surgical/fami ly/social history, medications, and allergies. Opioid use review [...] (71.6kg) SpO2 98% Vision Screening: Follows with optometry/ophthalmolo gy Assessment/Plan Medicare annual wellness visit, subsequent () [...] AMLODIPINE 5 MG TABLET - LISINOPRIL 20 MG-HYDROCHLOROTHIAZID E 12.5 MG TABLET 4. 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 Normal [facility] CBC panel Auto (Bld)on 11-30 Erythrocyte distribution width (RBC) [Ratio] 12.8 % Normal 11.5-15.0 [facility] Comment on above: Order Comment: Speci men Type: BLOOD SPECIMEN Ordering Facility: [facility] Address: [address] [place] [address] Performed By: #### 5 8410-2 #### [facility] CLIA [id number] [address] [place] [address] Hematocrit (Bld) [Volume fraction] 41.7 % Normal 36.0-46.0 [facility] Comment on above: Order Comment: Speci men Type: BLOOD SPECIMEN Ordering Facility: [facility] Address: [address] [place] [address] Performed By: #### 5 8410-2 #### [facility] CLIA [id number] [address] [place] [address] Hemoglobin (Bld) [Mass/Vol] 13.7 g/dL Normal 11.5-15.5 [facility] Comment on above: Order Comment: Speci men Type: BLOOD SPECIMEN Ordering Facility: [facility] Address: [address] [place] [address] Performed By: #### 5 8410-2 #### [facility] CLIA [id number] [address] [place] [address] MCH (RBC) [Entitic mass] 27.6 pg Normal 26.0-34.0 [facility] Comment on above: Order Comment: Speci men Type: BLOOD SPECIMEN Ordering Facility: [facility] Address: [address] [place] [address] Performed By: #### 5 8410-2 #### [facility] CLIA [id number] [address] [place] [address] MCHC (RBC) [Mass/Vol] 32.9 g/dL Normal 30.5-36.0 [facility] Comment on above: Order Comment: Speci men Type: BLOOD SPECIMEN Ordering Facility: [facility] Address: [address] [place] [address] Performed By: #### 5 8410-2 #### [facility] CLIA [id number] [address] [place] [address] MCV (RBC) [Entitic vol] 83.9 fL Normal 80.0-100.0 [facility] Comment on above: Order Comment: Speci men Type: BLOOD SPECIMEN Ordering Facility: [facility] Address: [address] [place] [address] Performed By: #### 5 8410-2 #### [facility] CLIA [id number] [address] [place] [address] Nucleated RBC (Bld) [#/Vol] 10*3/uL Normal <0.01 [facility] Comment on above: Order Comment: Speci men Type: BLOOD SPECIMEN Ordering Facility: [facility] Address: [address] [place] [address] Performed By: #### 5 8410-2 #### [facility] CLIA [id number] [address] [place] [address] Platelet mean volume (Bld) [Entitic vol] 8.9 fL Low 9.0-12.7 [facility] Comment on above: Order Comment: Speci men Type: BLOOD SPECIMEN Ordering Facility: [facility] Address: [address] [place] [address] Performed By: #### 5 8410-2 #### [facility] CLIA [id number] [address] [place] [address] Platelets (Bld) [#/Vol] 263 10*3/uL Normal 150-400 [facility] Comment on above: Order Comment: Speci men Type: BLOOD SPECIMEN Ordering Facility: [facility] Address: [address] [place] [address] Performed By: #### 5 8410-2 #### [facility] CLIA [id number] [address] [place] [address] RBC (Bld) [#/Vol] 4.97 10*6/uL Normal 3.90-5.20 [facility] Comment on above: Order Comment: Speci men Type: BLOOD SPECIMEN Ordering Facility: [facility] Address: [address] [place] [address] Performed By: #### 5 8410-2 #### [facility] CLIA [id number] [address] [place] [address] WBC (Bld) [#/Vol] 7.29 10*3/uL Normal 3.70-11.00 [facility] Comment on above: Order Comment: Speci men Type: BLOOD SPECIMEN Ordering Facility: [facility] Address: [address] [place] [address] Performed By: #### 5 8410-2 #### [facility] CLIA [id number] [address] [place] [address] Comprehensive metabolic 2000 panelon 12-01-2023 Albumin [Mass/Vol] 4.7 g/dL Normal 3.9-4.9 [facility] Comment on above: Order Comment: Speci men Type: BLOOD SPECIMEN Ordering Facility: [facility] Address: [address] [place] [address] Performed By: #### 2 4323-8 #### [facility] CLIA [id number] [address] [place] [address] ALP [Catalytic activity/Vol] 78 U/L Normal 34-123 [facility] Comment on above: Order Comment: Speci men Type: BLOOD SPECIMEN Ordering Facility: [facility] Address: [address] [place] [address] Performed By: #### 2 4323-8 #### [facility] CLIA [id number] [address] [place] [address] ALT [Catalytic activity/Vol] 30 U/L Normal 7-38 [facility] Comment on above: Order Comment: Speci men Type: BLOOD SPECIMEN Ordering Facility: [facility] Address: [address] [place] [address] Performed By: #### 2 4323-8 #### [facility] CLIA [id number] [address] [place] [address] Anion gap [Moles/Vol] 12 mmol/L Normal 9-18 [facility] Comment on above: Order Comment: Speci men Type: BLOOD SPECIMEN Ordering Facility: [facility] Address: [address] [place] [id number] Performed By: #### 2 4323-8 #### [facility] CLIA [id number] [address] [place] [address] AST [Catalytic activity/Vol] 32 U/L Normal 13-35 [facility] Comment on above: Order Comment: Speci men Type: BLOOD SPECIMEN Ordering Facility: [facility] Address: [address] [place] [address] Performed By: #### 2 4323-8 #### [facility] CLIA [id number] [address] [place] [address] Bilirubin [Mass/Vol] 0.7 mg/dL Normal 0.2-1.3 [facility] Comment on above: Order Comment: Speci men Type: BLOOD SPECIMEN Ordering Facility: [facility] Address: [address] [place] [address] Performed By: #### 2 4323-8 #### [facility] CLIA [id number] [address] [place] [address] Calcium [Mass/Vol] 10.3 mg/dL High 8.5-10.2 [facility] Comment on above: Order Comment: Speci men Type: BLOOD SPECIMEN Ordering Facility: [facility] Address: [address] [place] [address] Performed By: #### 2 4323-8 #### [facility] CLIA [id number] [address] [place] [address] Chloride [Moles/Vol] 106 mmol/L High 97-105 [facility] Comment on above: Order Comment: Speci men Type: BLOOD SPECIMEN Ordering Facility: [facility] Address: [address] [place] [address] Performed By: #### 2 4323-8 #### [facility] CLIA [id number] [address] [place] [address] CO2 [Moles/Vol] 28 mmol/L Normal 22-30 [facility] Comment on above: Order Comment: Speci men Type: BLOOD SPECIMEN Ordering Facility: [facility] Address: [address] [place] [address] Performed By: #### 2 4323-8 #### [facility] CLIA [id number] [address] [place] [address] Creatinine [Mass/Vol] 0.76 mg/dL Normal 0.58-0.96 [facility] Comment on above: Order Comment: Speci men Type: BLOOD SPECIMEN Ordering Facility: [facility] Address: [address] [place], [place] [address] Performed By: #### 2 4323-8 #### [facility] CLIA [id number] [address] [place] [address] Creatinine and Glomerular filtration rate.predicted panel (S/P/Bld) 85 mL/min/1.73m??? Normal >=60 [facility] Comment on above: Order Comment: Speci men Type: BLOOD SPECIMEN Ordering Facility: [facility] Address: [address] [place] [address] Result Comment: Ambar mated Glomerular Filtration Rate [...] GFR. Performed By: #### 2 4323-8 #### [facility] CLIA [id number] [address] [place] [address] Glucose [Mass/Vol] 94 mg/dL Normal 74-99 [facility] Comment on above: Order Comment: Speci men Type: BLOOD SPECIMEN Ordering Facility: [facility] Address: [address] [id number] Result Comment: The [place] Diabetes [employer] (ADA) provides guidance for cutoff [...] Standards of Medical Care in Diabetes 2016, [place] [employer]. Diabetes Care. 2016.39(Suppl 1). Performed By: #### 2 4323-8 #### [facility] CLIA [id number] [address] [place] [address] Potassium [Moles/Vol] 4.0 mmol/L Normal 3.7-5.1 [facility] Comment on above: Order Comment: Eric montez Type: BLOOD SPECIMEN Ordering Facility: [facility] Address: [address] [place] [address] Performed By: #### 2 4323-8 #### [facility] CLIA [id number] [address] [place] [address] Protein [Mass/Vol] 7.5 g/dL Normal 6.3-8.0 [facility] Comment on above: Order Comment: Eric montez Type: BLOOD SPECIMEN Ordering Facility: [facility] Address: [address] [place] [address] Performed By: #### 2 4323-8 #### [facility] CLIA [id number] [address] [place] [address] Sodium [Moles/Vol] 146 mmol/L High 136-144 [facility] Comment on above: Order Comment: Eric montez Type: BLOOD SPECIMEN Ordering Facility: [facility] Address: [address] [place] [address] Performed By: #### 2 4323-8 #### [facility] CLIA [id number] [address] [place] [address] Urea nitrogen [Mass/Vol] 14 mg/dL Normal 7-21 [facility] Comment on above: Order Comment: Speci men Type: BLOOD SPECIMEN Ordering Facility: [facility] Address: [address] [place] [address] Performed By: #### 2 4323-8 #### [facility] CLIA [id number] [address] [place] [address] Lipid 1996 panelon 4 Cholesterol [Mass/Vol] 185 mg/dL Normal <200 [facility] Comment on above: Order Comment: Speci men Type: BLOOD SPECIMEN Ordering Facility: [facility] Address: [address] [place] [address] Result Comment: <200 mg/dL, Desirable 200-239 mg/dL, Borderline high >239 mg/dL, High Performed By: #### 2 4331-1 #### [facility] CLIA [id number] [address] [place] [address] LAB CLIA [id number] [address] [place] [address] Cholesterol in HDL [Mass/Vol] 55 mg/dL Normal >39 [facility] Comment on above: Order Comment: Speci men Type: BLOOD SPECIMEN Ordering Facility: [facility] Address: [address] [place] [address] Result Comment: 40-5 9 mg/dL, Acceptable >59 mg/dL, High: Negative risk factor for coronary heart disease <40 mg/dL, Low: Positive risk factor for coronary heart disease Performed By: #### 2 4331-1 #### [facility] CLIA [id number] [address] [place] [address] LAB CLIA [id number] [address] [place] [address] Cholesterol in LDL [Mass/Vol] 112 mg/dL High <100 [facility] Comment on above: Order Comment: Speci men Type: BLOOD SPECIMEN Ordering Facility: [facility] Address: [address] [place], [place] [id number] Result Comment: <100 mg/dL, Optimal 100-129 mg/dL, Near optimal/above optimal 130-159 mg/dL, Borderline high 160-189 mg/dL, High >189 mg/dL, Very high Secondary prevention optimal LDL Cholesterol levels are recommended to be < 70 mg/dL Performed By: #### 2 4331-1 #### [facility] CLIA [id number] LAB CLIA [id number] [address] [place] [address] Cholesterol in LDL/Cholesterol in HDL [Mass ratio] 2.04 {ratio} Normal <2.54 [facility] Comment on above: Order Comment: Eric montez Type: BLOOD SPECIMEN Ordering Facility: [facility] Address: [address] [place] [address] Result Comment: Refe rence: 1. National Cholesterol Education Program ATP III Guideline At-A-Glance Quick Desk Reference: National Heart, Lung, and Blood [place]. National Institutes of Health. 2001: NIH Publication No. 01-3305. 2. An International Atherosclerosis Society position paper: global recommendations for the management of dyslipidemia: executive summary, Atherosclerosis. 2014: 232(2):410-413. Performed By: #### 2 4331-1 #### [facility] CLIA [id number] [address] [place] [address] [facility] CLIA [id number] [address] [place] [address] Cholesterol in VLDL [Mass/Vol] 18 mg/dL Normal <30 [facility] Comment on above: Order Comment: Eric montez Type: BLOOD SPECIMEN Ordering Facility: [facility] Address: [address] [place] [address] Performed By: #### 2 4331-1 #### [facility] CLIA [id number] [address] [place] [address] OF [facility] CLIA [id number] [address] [place] [address] Cholesterol non HDL [Mass/Vol] 130 mg/dL High <130 [facility] Comment on above: Order Comment: Speci men Type: BLOOD SPECIMEN Ordering Facility: [facility] Address: [address] [place] [address] Result Comment: <130 mg/dL, Optimal 130-159 mg/dL, Near optimal/above optimal 160-189 mg/dL, Borderline high 190-219 mg/dL, High >219 mg/dL, Very high Secondary prevention optimal non HDL Cholesterol levels are recommended to be <100 mg/dL Performed By: #### 2 4331-1 #### [facility] CLIA [id number] [address] [place] [address] LAB CLIA [id number] [address] [place] [address] Cholesterol.total/ Cholesterol in HDL [Mass ratio] 3.36 {ratio} Normal <5.10 [facility] Comment on above: Order Comment: Speci men Type: BLOOD SPECIMEN Ordering Facility: [facility] Address: [address] [place] [address] Performed By: #### 2 4331-1 #### [facility] CLIA [id number] [address] [place] [address] LAB CLIA [id number] [address] [place] [address] FASTING TIME 12 hrs Normal [facility] Comment on above: Order Comment: Speci men Type: BLOOD SPECIMEN Ordering Facility: [facility] Address: [address] [place] [address] Performed By: #### 2 4331-1 #### [facility] CLIA [id number] [address] [place] [address] LAB CLIA [id number] [address] [place] [address] Triglyceride [Mass/Vol] 88 mg/dL Normal <150 [facility] Comment on above: Order Comment: Speci men Type: BLOOD SPECIMEN Ordering Facility: [facility] Address: [address] [place] [address] Result Comment: <150 mg/dL, Normal 150-199 mg/dL, Borderline high 200-499 mg/dL, High >499 mg/dL, Very high Performed By: #### 2 4331-1 #### [facility] CLIA [id number] [address] [facility] [address] [address] [facility] CLIA [id number] [address] [place] [address] CNCO[facility] 04-29-2023 [facility] HNO ID: [id number] Author: Coordinator, Mammography Service: ? Author Type: Physician Type: Letter Filed: 04/30/2023 11:34 PM Note Text: [address] [address] April 29, 2023 PID: [id number] Mary Dempsey [address] [place] [address] [address] [place] [address] Dear Ms. Dempsey, We are pleased to [...] report will be kept on file at [facility] as part of your permanent medical record and are available for your continuing care. Thank you for allowing us to help in meeting your health care needs. Sincerely, Dr. Sam Interpreting Radiologist [facility] (Normal over 40) Normal [facility] BD DXA - AXIAL SKELETONon BD DXA - AXIAL SKELETON * * *Final Report* * * DATE OF EXAM: Apr 28 2023 3:16PM LDX 0804 - BD DXA - AXIAL SKELETON / PROCEDURE REASON: multiple diagnoses * * * * Physician Interpretation * * * * EXAM TITLE: BONE MINERAL DENSITOMETRY DATE: 04/28/2023 2:30 PM COMPARISON:05/14/2021 CLINICAL INDICATION/HISTORY: Postmenopausal, screening for osteoporosis TECHNIQUE: DXA Measurabl QDR 4500C v.11.2 examination was performed on [...] for Metabolic Bone Disease, a WHO Collaborating [place]. This applies to men over 50 and to post menopausal women over 50 years of age. The 10 year probability of fracture may be lower than reported above if the patient has received treatment for osteopenia/osteoporos is. It is also less accurate the more [...] at high risk for accelerated bone loss). Fireworks Maker: JERSEY Transcribe Date/Time: Apr 29 2023 7:40A Dictated by : NIKOLAS SILVEIRA MD This examination was interpreted and the report reviewed and electronically signed by: NIKOLAS SILVEIRA MD on Apr 29 2023 7:41AM EST [id number] N Normal [facility] NOÉ SCREENING W TOMOon 04-28 NOÉ SCREENING W MANDA * * *Final Report* * * DATE OF EXAM: Apr 28 2023 3:14PM LDW 0582 - NOÉ SCREENING W MANDA / PROCEDURE REASON: Encounter for screening mammogram for malignant neoplasm of breast * * * * Physician Interpretation * * * * #[id number] - NOÉ SCREENING W MANDA BILATERAL DIGITAL [...] made to exams dated: 04/30/2022 mammogram - [facility], 09/18/2021 [facility], 03/14/2021 mammogram - [facility], 02/20/2021 mammogram - [facility], 07/17/2014 mammogram, and 07/15/2013 mammogram - [facility] [...] A 1 year screening mammogram is recommended. Юлия faulkner/vitor:04/29/2023 12:22:18 Spragger(s): Reji Bliss (Joey)(M), [facility] letter sent: Normal over 40 Mammogram BI-RADS: [...] Health, Family Medicine, and Medical/Surgical Oncology, the [facility] has carefully reviewed the data and reached [...] their providers when to stop screening mammograms. Fireworks Maker: Vitor Transcribe Date/Time: Apr 28 2023 2:49P Dictated by : ЮЛИЯ SAM MD This examination was interpreted and the report reviewed and electronically signed by: ЮЛИЯ SAM MD on Apr 29 2023 12:22PM EST [id number] Normal [facility] CBC AUTO DIFFon 11-20-2022 BASO # 0.0 103/ul Normal 0.0-0.1 [facility] Comment on above: Performed By: #### C BC #### [facility] [address] [place] [address] Dr. Pietro Tam Basophils/100 WBC (Bld) 0.5 % Normal 0.2-2.0 [facility] Comment on above: Performed By: #### C BC #### [facility] [address] [place] [address] Dr. Pietro Tam EO # 0.1 103/ul Normal 0.0-0.7 [facility] Comment on above: Performed By: #### C BC #### [facility] [address] [place] [address] Dr. Pietro Tam Eosinophils/100 WBC (Bld) 1.2 % Normal 0.9-7.0 [facility] Comment on above: Performed By: #### C BC #### [facility] [address] [place] [address] Dr. Pietro Tam Erythrocyte distribution width (RBC) [Ratio] 13.0 % Normal 11.0-15.0 [facility] Comment on above: Performed By: #### C BC #### [facility] [address] [place] [address] Dr. Pietro Tam Hematocrit (Bld) [Volume fraction] 39.5 % Normal 36.0-48.0 [facility] Comment on above: Performed By: #### C BC #### [facility] [address] [place] [address] Dr. Pietro Tam Hemoglobin (Bld) [Mass/Vol] 13.2 g/dL Normal 12.0-16.0 [facility] Comment on above: Performed By: #### C BC #### [facility] [address] [place] [address] Dr. Pietro Tam IG # 0.03 10e3/ul Normal 0.00-0.03 [facility] Comment on above: Performed By: #### C BC #### [facility] [address] [place] [address] Dr. Pietro Tam IG % 0.4 % Normal 0.0-0.5 [facility] Comment on above: Performed By: #### C BC #### [facility] [address] [place] [address] Dr. Pietro Tam LYMPH # 1.8 103/ul Normal 1.2-3.8 [facility] Comment on above: Performed By: #### C BC #### [facility] [address] [place] [address] Dr. Pietro Tam Lymphocytes/100 WBC (Bld) 22.5 % Normal 20.5-60.0 [facility] Comment on above: Performed By: #### C BC #### [facility] [address] [place] [address] Dr. Pietro Tam MANUAL DIFF REQ NO Normal [facility] Comment on above: Performed By: #### C BC #### [facility] [address] [place] [address] Dr. Pietro Tam MCH (RBC) [Entitic mass] 27.7 pg Normal 26.7-34.0 [facility] Comment on above: Performed By: #### C BC #### [facility] [address] [place] [address] Dr. Pietro Tam MCHC (RBC) [Mass/Vol] 33.4 g/dL Normal 29.9-35.2 [facility] Comment on above: Performed By: #### C BC #### [facility] [address] [place] [address] Dr. Pietro Tam MCV (RBC) [Entitic vol] 83.0 fL Normal 81.0-99.0 [facility] Comment on above: Performed By: #### C BC #### [facility] [address] [place] [address] Dr. Pietro Tam MONO # 0.6 103/ul Normal 0.3-0.8 [facility] Comment on above: Performed By: #### C BC #### [facility] [address] [place] [address] Dr. Pietro Tam Monocytes/100 WBC (Bld) 7.3 % Normal 1.7-12.0 [facility] Comment on above: Performed By: #### C BC #### [facility] [address] [place] [address] Dr. Pietro Tam NEUT # 5.6 103/ul Normal 1.4-6.5 [facility] Comment on above: Performed By: #### C BC #### [facility] [address] [place] [address] Dr. Pietro Tam Neutrophils/100 WBC (Bld) 68.1 % Normal 43.0-75.0 [facility] Comment on above: Performed By: #### C BC #### [facility] [address] [place] [address] Dr. Pietro Tam Platelet mean volume (Bld) [Entitic vol] 8.9 fL Critically low 9.5-13.5 [facility] Comment on above: Performed By: #### C BC #### [facility] [address] [place] [address] Dr. Pietro Tam PLT 246 103/ul Normal 150-450 [facility] Comment on above: Performed By: #### C BC #### [facility] [address] [place] [address] Dr. Pietro Tam RBC 4.76 106/ul Normal 4.20-5.40 [facility] Comment on above: Performed By: #### C BC #### [facility] [address] [place] [address] Dr. Pietro Tam WBC 8.2 103/ul Normal 4.0-11.0 [facility] Comment on above: Performed By: #### C BC #### [facility] [address] [place] [address] Dr. Pietro Tam PROF 14(COMP METB)on 023 Albumin [Mass/Vol] 4.0 g/dL Normal 3.4-5.0 [facility] Comment on above: Performed By: #### C MP #### [facility] [address] [place] [address] Dr. Pietro Tam Albumin/Globulin [Mass ratio] 1.1 {ratio} Normal [facility] Comment on above: Performed By: #### C MP #### [facility] [address] [place] [address] Dr. Pietro Tam ALP [Catalytic activity/Vol] 75 U/L Normal 46-116 [facility] Comment on above: Performed By: #### C MP #### [facility] [address] [address] [address] Pietro Tam ALT [Catalytic activity/Vol] 55 U/L Normal 14-59 [facility] Comment on above: Performed By: #### C MP #### [facility] [address] [address] [address] Pietro aTm Anion gap [Moles/Vol] 9.3 mmol/L Normal [facility] Comment on above: Performed By: #### C MP #### [facility] [address] [address] [address] Pietro Tam AST [Catalytic activity/Vol] 43 U/L Critically high 15-37 [facility] Comment on above: Performed By: #### C MP #### [facility] [address] [place] [address] Dr. Pietro Tam Bilirubin [Mass/Vol] 0.5 mg/dL Normal 0.2-1.0 [facility] Comment on above: Performed By: #### C MP #### [facility] [address] [address] [address] Pietro Tam Calcium [Mass/Vol] 9.5 mg/dL Normal 8.5-10.1 [facility] Comment on above: Performed By: #### C MP #### [facility] [address] [address] [address] Pietro Tam Chloride [Moles/Vol] 105 mmol/L Normal 98-107 [facility] Comment on above: Performed By: #### C MP #### [facility] [address] [address] [address] Pietro Tam CO2 [Moles/Vol] 29.2 mmol/L Normal 21.0-32.0 [facility] Comment on above: Performed By: #### C MP #### [facility] [address] [address] [address] Pietro Tam Creatinine [Mass/Vol] 0.56 mg/dL Normal 0.55-1.02 [facility] Comment on above: Performed By: #### C MP #### [facility] [address] [address] [address] Pietro Tam EGFR-AF TAIWANESE >60 Normal >=60 [facility] Comment on above: Performed By: #### C MP #### [facility] [address] [address] [address] Pietro Tam EGFR-NON AF TAIWANESE >60 Normal >=60 [facility] Comment on above: Performed By: #### C MP #### [facility] [address] [address] [address] Pietro Tam Globulin (S) [Mass/Vol] 3.5 g/dL Normal [facility] Comment on above: Performed By: #### C MP #### [facility] [address] [address] [address] Pietro Tam Glucose [Mass/Vol] 87 mg/dL Normal 74-106 [facility] Comment on above: Performed By: #### C MP #### [facility] [address] [address] [address] Pietro Tam Potassium [Moles/Vol] 3.5 mmol/L Normal 3.5-5.1 [facility] Comment on above: Performed By: #### C MP #### [facility] [address] [address] [address] Pietro Tam Protein [Mass/Vol] 7.5 g/dL Normal 6.4-8.2 [facility] Comment on above: Performed By: #### C MP #### [facility] [address] [address] [address] Pietro Tam Sodium [Moles/Vol] 140 mmol/L Normal 136-145 [facility] Comment on above: Performed By: #### C MP #### [facility] [address] [address] [address] Pietro Tam Urea nitrogen [Mass/Vol] 15.0 mg/dL Normal 7.0-18.0 [facility] Comment on above: Performed By: #### C MP #### [facility] [address] [address] [address] Pietro Tam Urea nitrogen/Creatinin e [Mass ratio] 26.8 mg/mg Normal [facility] Comment on above: Performed By: #### C MP #### [facility] [address] [place] [address] Dr. Pietro Tam [facility] SED RATE 18 mm/hr Normal <=30 [facility] Comment on above: Performed By: #### S EDR #### [facility] [address] [place] [address] Dr. Pietro Tam CBC AUTO DIFFon 05-26-2022 BASO # 0.1 103/ul Normal 0.0-0.1 [facility] Comment on above: Performed By: #### C BC #### [facility] [address] [place] [address] Dr. Pietro Tam Basophils/100 WBC (Bld) 0.7 % Normal 0.2-2.0 [facility] Comment on above: Performed By: #### C BC #### [facility] [address] [place] [address] Dr. Pietro Tam EO # 0.1 103/ul Normal 0.0-0.7 [facility] Comment on above: Performed By: #### C BC #### [facility] [address] [place] [address] Dr. Pietro Tam Eosinophils/100 WBC (Bld) 1.3 % Normal 0.9-7.0 [facility] Comment on above: Performed By: #### C BC #### [facility] [address] [place] [address] Dr. Pietro Tam Erythrocyte distribution width (RBC) [Ratio] 13.1 % Normal 11.0-15.0 [facility] Comment on above: Performed By: #### C BC #### [facility] [address] [place] [address] Dr. Pietro Tam Hematocrit (Bld) [Volume fraction] 38.5 % Normal 36.0-48.0 [facility] Comment on above: Performed By: #### C BC #### [facility] [address] [place] [address] Dr. Pietro Tam Hemoglobin (Bld) [Mass/Vol] 12.9 g/dL Normal 12.0-16.0 [facility] Comment on above: Performed By: #### C BC #### [facility] [address] [place] [address] Dr. Pietro Tam IG # 0.01 10e3/ul Normal 0.00-0.03 [facility] Comment on above: Performed By: #### C BC #### [facility] [address] [place] [address] Dr. Pietro Tam IG % 0.1 % Normal 0.0-0.5 [facility] Comment on above: Performed By: #### C BC #### [facility] [address] [place] [address] Dr. Pietro Tam LYMPH # 1.6 103/ul Normal 1.2-3.8 [facility] Comment on above: Performed By: #### C BC #### [facility] [address] [place] [address] Dr. Pietor Tam Lymphocytes/100 WBC (Bld) 21.7 % Normal 20.5-60.0 [facility] Comment on above: Performed By: #### C BC #### [facility] [address] [place] [address] Dr. Pietro Tam MANUAL DIFF REQ NO Normal [facility] Comment on above: Performed By: #### C BC #### [facility] [address] [place] [address] Dr. Pietro Tam MCH (RBC) [Entitic mass] 28.1 pg Normal 26.7-34.0 [facility] Comment on above: Performed By: #### C BC #### [facility] [address] [place] [address] Dr. Pietro Tam MCHC (RBC) [Mass/Vol] 33.5 g/dL Normal 29.9-35.2 [facility] Comment on above: Performed By: #### C BC #### [facility] [address] [place] [address] Dr. Pietro Tam MCV (RBC) [Entitic vol] 83.9 fL Normal 81.0-99.0 [facility] Comment on above: Performed By: #### C BC #### [facility] [address] [place] [address] Dr. Pietro Tam MONO # 0.5 103/ul Normal 0.3-0.8 [facility] Comment on above: Performed By: #### C BC #### [facility] [address] [place] [address] Dr. Pietro Tam Monocytes/100 WBC (Bld) 6.5 % Normal 1.7-12.0 [facility] Comment on above: Performed By: #### C BC #### [facility] [address] [place] [address] Dr. Pietro Tam NEUT # 5.0 103/ul Normal 1.4-6.5 [facility] Comment on above: Performed By: #### C BC #### [facility] [address] [place] [address] Dr. Pietro Tam Neutrophils/100 WBC (Bld) 69.7 % Normal 43.0-75.0 [facility] Comment on above: Performed By: #### C BC #### [facility] [address] [place] [address] Dr. Pietro Tam Platelet mean volume (Bld) [Entitic vol] 8.5 fL Critically low 9.5-13.5 [facility] Comment on above: Performed By: #### C BC #### [facility] [address] [place] [address] Dr. Pietro Tam PLT 253 103/ul Normal 150-450 [facility] Comment on above: Performed By: #### C BC #### [facility] [address] [place] [address] Dr. Pietro Tam RBC 4.59 106/ul Normal 4.20-5.40 [facility] Comment on above: Performed By: #### C BC #### [facility] [address] [place] [address] Dr. Pietro Tam WBC 7.2 103/ul Normal 4.0-11.0 [facility] Comment on above: Performed By: #### C BC #### [facility] [address] [address] [address] Pietro Tam PROF 14(COMP METB)on 022 Albumin [Mass/Vol] 4.0 g/dL Normal 3.4-5.0 [facility] Comment on above: Performed By: #### C MP #### [facility] [address] [place] [address] Dr. Pietro Tam Albumin/Globulin [Mass ratio] 1.2 {ratio} Normal [facility] Comment on above: Performed By: #### C MP #### [facility] [address] [place] [address] Dr. Pietro Tam ALP [Catalytic activity/Vol] 71 U/L Normal 46-116 [facility] Comment on above: Performed By: #### C MP #### [facility] [address] [place] [address] Dr. Pietro Tam ALT [Catalytic activity/Vol] 40 U/L Normal 14-59 [facility] Comment on above: Performed By: #### C MP #### [facility] [address] [place] [address] Dr. Pietro Tam Anion gap [Moles/Vol] 12.2 mmol/L Normal [facility] Comment on above: Performed By: #### C MP #### [facility] [address] [place] [address] Dr. Pietro Tam AST [Catalytic activity/Vol] 31 U/L Normal 15-37 [facility] Comment on above: Performed By: #### C MP #### [facility] [address] [place] [address] Dr. Pietro Tam Bilirubin [Mass/Vol] 0.7 mg/dL Normal 0.2-1.0 [facility] Comment on above: Performed By: #### C MP #### [facility] [address] [place] [address] Dr. Pietro Tam Calcium [Mass/Vol] 9.0 mg/dL Normal 8.5-10.1 [facility] Comment on above: Performed By: #### C MP #### [facility] [address] [address] [address] Pietro Tam Chloride [Moles/Vol] 104 mmol/L Normal 98-107 [facility] Comment on above: Performed By: #### C MP #### [facility] [address] [address] [address] Pietro Tam CO2 [Moles/Vol] 29.4 mmol/L Normal 21.0-32.0 [facility] Comment on above: Performed By: #### C MP #### [facility] [address] [address] [address] Pietro Tam Creatinine [Mass/Vol] 0.68 mg/dL Normal 0.55-1.02 [facility] Comment on above: Performed By: #### C MP #### [facility] [address] [place] [address] Dr. Pietro Tam EGFR-AF TAIWANESE >60 Normal >=60 [facility] Comment on above: Performed By: #### C MP #### [facility] [address] [address] [address] Pietro Tam EGFR-NON AF TAIWANESE >60 Normal >=60 [facility] Comment on above: Performed By: #### C MP #### [facility] [address] [address] [address] Pietro Tam Globulin (S) [Mass/Vol] 3.3 g/dL Normal [facility] Comment on above: Performed By: #### C MP #### [facility] [address] [address] [address] Pietro Tam Glucose [Mass/Vol] 91 mg/dL Normal 74-106 [facility] Comment on above: Performed By: #### C MP #### [facility] [address] [address] [address] Pietro Tam Potassium [Moles/Vol] 3.6 mmol/L Normal 3.5-5.1 [facility] Comment on above: Performed By: #### C MP #### [facility] [address] [address] [address] Pietro Tam Protein [Mass/Vol] 7.3 g/dL Normal 6.4-8.2 [facility] Comment on above: Performed By: #### C MP #### [facility] [address] [place] [address] Dr. Pietro Tam Sodium [Moles/Vol] 142 mmol/L Normal 136-145 [facility] Comment on above: Performed By: #### C MP #### [facility] [address] [address] [address] Pietro Tam Urea nitrogen [Mass/Vol] 13.0 mg/dL Normal 7.0-18.0 [facility] Comment on above: Performed By: #### C MP #### [facility] [address] [place] [address] Dr. Pietro Tam Urea nitrogen/Creatinin e [Mass ratio] 19.1 mg/mg Normal [facility] Comment on above: Performed By: #### C MP #### [facility] [address] [place] [address] Dr. Pietro Tam SED RATE [facility] 2021 SED RATE 10 mm/hr Normal <=30 [facility] Comment on above: Performed By: #### S EDR #### [facility] [address] [place] [address] Dr. Pietro Tam Complete Blood Count with Au to Diffon 12-17-2021 Basophils (Bld) [#/Vol] 0.04 10*3/uL Normal 0.00-0.20 [facility] Comment on above: Performed By: #### E SR, CBCAD, CMP #### [facility] [address] [id number] Basophils/100 WBC (Bld) 0.5 % Normal [facility] Comment on above: Performed By: #### E SR, CBCAD, CMP #### [facility] [address] [id number] Eosinophils (Bld) [#/Vol] 0.07 10*3/uL Normal 0.02-0.50 [facility] [employer] Comment on above: Performed By: #### E SR, CBCAD, CMP #### [facility] [address] [place], [place] [id number] Eosinophils/100 WBC (Bld) 0.9 % Normal [facility] Comment on above: Performed By: #### E SR, CBCAD, CMP #### [facility] [address] [place], [place] [id number] Erythrocyte distribution width (RBC) [Ratio] 13.2 % Normal 11.0-15.0 [facility] [employer] Comment on above: Performed By: #### E SR, CBCAD, CMP #### [facility] [address] [place], [place] [id number] Hematocrit (Bld) [Volume fraction] 43.0 % Normal 35.0-47.0 [facility] [employer] Comment on above: Performed By: #### E SR, CBCAD, CMP #### [facility] [address] [place], [place] [id number] Hemoglobin (Bld) [Mass/Vol] 14.3 g/dL Normal 11.6-15.5 [facility] [employer] Comment on above: Performed By: #### E SR, CBCAD, CMP #### [facility] [address] [place], [place] [id number] Lymphocytes (Bld) [#/Vol] 1.5 10*3/uL Normal 0.9-3.9 [facility] [employer] Comment on above: Performed By: #### E SR, CBCAD, CMP #### [facility] [address] [place], [place] [id number] Lymphocytes/100 WBC (Bld) 19.6 % Normal [facility] [employer] Comment on above: Performed By: #### E SR, CBCAD, CMP #### [facility] [address] [place], [place] [id number] MCH (RBC) [Entitic mass] 28.3 pg Normal 27.0-33.0 [facility] [employer] Comment on above: Performed By: #### E SR, CBCAD, CMP #### [facility] [address] [place], [place] [id number] MCHC (RBC) [Mass/Vol] 33.3 g/dL Normal 32.0-36.0 [facility] [employer] Comment on above: Performed By: #### E SR, CBCAD, CMP #### [facility] [address] [place], [place] [id number] MCV (RBC) [Entitic vol] 85 fL Normal 80-100 [facility] Comment on above: Performed By: #### E SR, CBCAD, CMP #### [facility] [address] [place], [place] [id number] Monocytes (Bld) [#/Vol] 0.5 10*3/uL Normal 0.2-0.9 [facility] Comment on above: Performed By: #### E SR, CBCAD, CMP #### [facility] [address] [place], [place] [id number] Monocytes/100 WBC (Bld) 6.1 % Normal [facility] Comment on above: Performed By: #### E SR, CBCAD, CMP #### [facility] [address] [place], [place] [id number] Neutrophils (Bld) [#/Vol] 5.5 10*3/uL Normal 1.5-7.8 [facility] Comment on above: Performed By: #### E SR, CBCAD, CMP #### [facility] [address] [place], [place] [id number] Neutrophils/100 WBC (Bld) 72.8 % Normal [facility] Comment on above: Performed By: #### E SR, CBCAD, CMP #### [facility] [address] [place], [place] [id number] Platelet mean volume (Bld) [Entitic vol] 10.10 fL Normal 7.50-12.50 [facility] Comment on above: Performed By: #### E SR, CBCAD, CMP #### [facility] [address] [place], [place] [id number] Platelets (Bld) [#/Vol] 168 10*3/uL Normal 140-400 [facility] Comment on above: Performed By: #### E SR, CBCAD, CMP #### [facility] [address] [place], [place] [id number] RBC (Bld) [#/Vol] 5.06 10*6/uL Normal 3.90-5.20 [facility] [employer] Comment on above: Performed By: #### E SR, CBCAD, CMP #### [facility] [address] [place], [place] [id number] RDW-SD 41.1 fL Normal 37.0-50.0 [facility] [employer] Comment on above: Performed By: #### E , CBCAD, CMP #### [facility] [address] [place], [place] [id number] WBC (Bld) [#/Vol] 7.6 10*3/uL Normal 3.8-11.0 [facility] [employer] Comment on above: Performed By: #### E , CBCAD, CMP #### [facility] [address] [place], [place] [id number] Comprehensive Metabolic Pane tova 12-17-2021 Albumin [Mass/Vol] 5.0 g/dL Normal 3.6-5.1 [facility] [employer] Comment on above: Performed By: #### E , CBCAD, CMP #### [facility] [address] [place], [place] [id number] Albumin/Globulin [Mass ratio] 2.2 {ratio} Normal 1.0-2.5 [facility] [employer] Comment on above: Performed By: #### E , CBCDOREEN, CMP #### [facility] [address] [place], [place] [id number] ALP [Catalytic activity/Vol] 77 U/L Normal 35-119 [facility] [employer] Comment on above: Performed By: #### E , CBCAD, CMP #### [facility] [address] [place], [place] [id number] ALT [Catalytic activity/Vol] 34 U/L High 6-33 [facility] Comment on above: Result Comment: 08/28 Female reference range changed. Performed By: #### E , CBCAD, CMP #### [facility] [address] [place], [place] [id number] Anion gap [Moles/Vol] 15 mmol/L Normal 12-20 [facility] [employer] Comment on above: Result Comment: Effe ctive 10/03/2019 reference range changed. Performed By: #### E SR, CBCAD, CMP #### [facility] [address] [place], [place] [id number] AST [Catalytic activity/Vol] 29 U/L Normal 9-34 [facility] Comment on above: Performed By: #### E SR, CBCAD, CMP #### [facility] [address] [place], [place] [id number] Bilirubin [Mass/Vol] 0.48 mg/dL Normal 0.30-1.20 [facility] Comment on above: Performed By: #### E SR, CBCAD, CMP #### [facility] [address] [place], [place] [id number] BUN/CREA 27 Ratio High 6-22 [facility] Comment on above: Performed By: #### E , CBCAD, CMP #### [facility] [address] [place], [place] [id number] Calcium [Mass/Vol] 9.6 mg/dL Normal 8.6-10.2 [facility] Comment on above: Performed By: #### E , CBCAD, CMP #### [facility] [address] [place], [place] [id number] Chloride [Moles/Vol] 106 mmol/L Normal 98-107 [facility] Comment on above: Performed By: #### E , CBCAD, CMP #### [facility] [address] [place], [place] [id number] CO2 [Moles/Vol] 26 mmol/L Normal 20-31 [facility] Comment on above: Performed By: #### E , CBCAD, CMP #### [facility] [address] [place], [place] [id number] Creatinine [Mass/Vol] 0.6 mg/dL Normal 0.6-1.4 [facility] Comment on above: Performed By: #### E SR, CBCAD, CMP #### [facility] [address] [place], [place] [id number] eGFRAA 129 mL/min/1.73m2 Normal >60 [facility] Comment on above: Performed By: #### E SR, CBCAD, CMP #### [facility] [address] [place], [place] [id number] eGFRNAA 106 mL/min/1.73m2 Normal >60 [facility] [employer] Comment on above: Performed By: #### E SR, CBCAD, CMP #### [facility] [address] [place], [place] [id number] Globulin (S) [Mass/Vol] 2.3 g/dL Normal 1.9-3.7 [facility] [employer] Comment on above: Performed By: #### E SR, CBCAD, CMP #### [facility] [address] [place], [place] [id number] Glucose [Mass/Vol] 97 mg/dL Normal 65-99 [facility] [employer] Comment on above: Result Comment: For FASTING Glucose --- ADA reference ranges: Normal 65-99 mg/dl Prediabetes 100-125 Diabetes >/= 126 Performed By: #### E SR, CBCAD, CMP #### [facility] [address] [place], [place] [id number] Potassium [Moles/Vol] 3.8 mmol/L Normal 3.5-5.5 [facility] [employer] Comment on above: Performed By: #### E SR, CBCAD, CMP #### [facility] [address] [place], [place] [id number] Protein [Mass/Vol] 7.3 g/dL Normal 6.1-8.1 [facility] [employer] Comment on above: Performed By: #### E SR, CBCAD, CMP #### [facility] [address] [place], [place] [id number] Sodium [Moles/Vol] 143 mmol/L Normal 135-146 [facility] [employer] Comment on above: Performed By: #### E SR, CBCAD, CMP #### [facility] [address] [place], [place] [id number] Urea nitrogen [Mass/Vol] 15 mg/dL Normal 7-25 [facility] [employer] Comment on above: Performed By: #### E SR, CBCAD, CMP #### [facility] [address] [place], [place] [id number] RBC Sedimentation Rateon ESR (Bld) [Velocity] 7.00 mm/h Normal 0.00-30.00 [facility] [employer] Comment on above: Performed By: #### E SR, CBCAD, CMP #### [facility] [address] [place], [place] [id number] NOÉ DIAGNOSTIC RTon 09-18-20 [facility] NOÉ SCREENINGon 02-20-2021 [facility] ED NOTEon 12-21-2020 ED NOTE HNO ID: [id number] Author: Yehuda (Rn) ZAINA Alfaro Service: Nursing Author Type: Registered Nurse Type: ED Notes Filed: 12/21/2020 1:54 PM Note Text: AAOX3. Equal/even resp rate. . Discharge instructions hi-lighted and reviewed with pt, pt verbalized understanding. Will follow-up with physician as instructed. No questions/concerns at time of discharge. Ambulated at discharge without difficulty. [facility] ED NOTE HNO ID: [id number] Author: Yehuda MoranRn) ZAINA Alfaro Service: Nursing Author Type: Registered Nurse Type: ED Notes Filed: 12/21/2020 1:00 PM Note Text: Pt is taking home meds, recheck VS in 30-40 minutes [facility] ED PROV NOTEon 12-21-2020 ED PROV NOTE HNO ID: [id number] Author: Mirta Sharma Service: Emergency Medicine Author Type: Physician Con[employer] Bo[employer] Pump Operator Type: ED Provider Notes Filed: 12/21/2020 2:02 [...] weakness or numbness. History provided by: Patient stockroom coordinator used: No PAST MEDICAL HISTORY Diagnosis Date [...] and headaches. Hematological: Does not bruise/bleed easily. Psychiatric/Behaviora l: Negative. Physical Exam BP 154/81 Pulse 71 [...] hospitalized on Thursday in the ICU at [facility] for what sounds to be [...] Barragan I (Gamal) Edith 12/21/20 1402 Normal [facility] CBC (INCLUDES DIFF/PLT)on Basophils (Bld) [#/Vol] 0.028 10*3/uL Normal 0-200 [facility] Comment on above: Performed By: #### 1 023, 80, 6399 #### [facility]-[address], [address] [place] [address] Buffet Waiter/Waitress: Delano Olea MD Basophils/100 WBC (Bld) 0.4 % Normal [facility] Comment on above: Performed By: #### 1 023, 80, 6399 #### [facility] [place] [address] [employer] Waiter/Waitress: Delano Olea MD Eosinophils (Bld) [#/Vol] 0.097 10*3/uL Normal 15-500 [facility] Comment on above: Performed By: #### 1 023, 80, 6399 #### [facility] [place] [address] [employer]et Waiter/Waitress: Delano Olea MD Eosinophils/100 WBC (Bld) 1.4 % Normal [facility] Comment on above: Performed By: #### 1 023, 80, 6399 #### [facility] [place] [address] [employer] Waiter/Waitress: Delano Olea MD Erythrocyte distribution width (RBC) [Ratio] 13.1 % Normal 11.0-15.0 [facility] Comment on above: Performed By: #### 1 0231, 80, 6399 #### [facility] [address] [place] [address] [employer] Waiter/Waitress: Delano Olea MD Hematocrit (Bld) [Volume fraction] 39.8 % Normal 35.0-45.0 [facility] Comment on above: Performed By: #### 1 023, 809, 6399 #### [facility] [address], [address] [place] [address] [employer] Waiter/Waitress: Delano Olea MD Hemoglobin (Bld) [Mass/Vol] 13.1 g/dL Normal 11.7-15.5 [facility] Comment on above: Performed By: #### 1 023, 809, 6399 #### [facility] [address], [address] [place] [address] [employer] Waiter/Waitress: Delano Olea MD Lymphocytes (Bld) [#/Vol] 1.691 10*3/uL Normal 850-3900 [facility] Comment on above: Performed By: #### 1 023, 809, 6399 #### [facility] [address], [address] [place] [address] [employer] Waiter/Waitress: Delano Olea MD Lymphocytes/100 WBC (Bld) 24.5 % Normal [facility] Comment on above: Performed By: #### 1 023, 809, 6399 #### [facility] [address], [address] [place] [address] [employer] Waiter/Waitress: Delano Olea MD MCH (RBC) [Entitic mass] 28.4 pg Normal 27.0-33.0 [facility] Comment on above: Performed By: #### 1 023, 809, 6399 #### [facility] [address], [address] [place] [address] [employer] Waiter/Waitress: Delano Olea MD MCHC (RBC) [Mass/Vol] 32.9 g/dL Normal 32.0-36.0 [facility] Comment on above: Performed By: #### 1 023, 809, 6399 #### [facility] [address], [address] [place] [address] [employer] Waiter/Waitress: Delano Olea MD MCV (RBC) [Entitic vol] 86.1 fL Normal 80.0-100.0 [facility] Comment on above: Performed By: #### 1 023, 809, 6399 #### [facility] [address], [address] [place] [address] [employer] Waiter/Waitress: Delano Olea MD Monocytes (Bld) [#/Vol] 0.497 10*3/uL Normal 200-950 [facility] Comment on above: Performed By: #### 1 0231, 809, 6399 #### [facility] [address], [address] [place] [address] [employer] Waiter/Waitress: Delano Olea MD Monocytes/100 WBC (Bld) 7.2 % Normal [facility] Comment on above: Performed By: #### 1 0231, 809, 6399 #### [facility] [address] , [address] [place] [address] [employer] Waiter/Waitress: Delano Olea MD Neutrophils (Bld) [#/Vol] 4.589 10*3/uL Normal 0706-6360 [facility] Comment on above: Performed By: #### 1 023, 809, 6399 #### [facility] [address] [address] , [address] [place] [address] [employer] Waiter/Waitress: Delano Olea MD Neutrophils/100 WBC (Bld) 66.5 % Normal [facility] Comment on above: Performed By: #### 1 0231, 809, 6399 #### [facility] [address] , [address] [place] [address] [employer] Waiter/Waitress: Delano Olea MD Platelet mean volume (Bld) [Entitic vol] 9.8 fL Normal 7.5-12.5 [facility] Comment on above: Performed By: #### 1 0231, 809, 6399 #### [facility] [address] [address] , [address] [place] [address] [employer] Waiter/Waitress: Delano Olea MD Platelets (Bld) [#/Vol] 190 10*3/uL Normal 140-400 [facility] Comment on above: Performed By: #### 1 0231, 809, 6399 #### [facility] [address], [address] [place] [address] [employer] Waiter/Waitress: Delano Olea MD RBC (Bld) [#/Vol] 4.62 10*6/uL Normal 3.80-5.10 [facility] Comment on above: Performed By: #### 1 0231, 809, 6399 #### [facility] , [address] [place] [address] [employer] Waiter/Waitress: Delano Olea MD WBC (Bld) [#/Vol] 6.9 10*3/uL Normal 3.8-10.8 [facility] Comment on above: Performed By: #### 1 0231, 809, 6399 #### [facility] , [address] [place] [address] [employer] Waiter/Waitress: Delano Olea MD [facility] [place] 12-01-2019 Albumin [Mass/Vol] 4.5 g/dL Normal 3.6-5.1 [facility] Comment on above: Order Comment: FASTI NG:NO FASTING: NO Performed By: #### 1 0231, 809, 6399 #### [facility]-[address], [address] [place] [address] [employer]et Waiter/Waitress: Delano Olea MD Albumin/Globulin [Mass ratio] 1.9 (calc) Normal 1.0-2.5 [facility] Comment on above: Order Comment: FASTI NG:NO FASTING: NO Performed By: #### 1 0231, 809, 6399 #### [facility] , [address] [place] [address] [employer]et Waiter/Waitress: Delano Olea MD ALP [Catalytic activity/Vol] 72 U/L Normal 37-153 [facility] Comment on above: Order Comment: FASTI NG:NO FASTING: NO Performed By: #### 1 0231, 809, 6399 #### [facility] [address] , [address] [place] [address] [employer] Waiter/Waitress: Delano Olea MD ALT [Catalytic activity/Vol] 27 U/L Normal 6-29 [facility] Comment on above: Order Comment: FASTI NG:NO FASTING: NO Performed By: #### 1 0231, 809, 6399 #### [facility] , [address] [place] [address] [employer] Waiter/Waitress: Delano Olea MD AST [Catalytic activity/Vol] 22 U/L Normal 10-35 [facility] Comment on above: Order Comment: FASTI NG:NO FASTING: NO Performed By: #### 1 0231, 809, 6399 #### [facility]-[address], [address] [place] [address] [employer]et Waiter/Waitress: Delano Olea MD Bilirubin [Mass/Vol] 0.5 mg/dL Normal 0.2-1.2 [facility] Comment on above: Order Comment: FASTI NG:NO FASTING: NO Performed By: #### 1 0231, 809, 6399 #### [facility], [address] [place] [address] [employer] Waiter/Waitress: Delano Olea MD Calcium [Mass/Vol] 9.8 mg/dL Normal 8.6-10.4 [facility] Comment on above: Order Comment: FASTI NG:NO FASTING: NO Performed By: #### 1 0231, 809, 6399 #### [facility]-[address], [address] [place] [address] [employer] Waiter/Waitress: Delano Olea MD Chloride [Moles/Vol] 104 mmol/L Normal 98-110 [facility] Comment on above: Order Comment: FASTI NG:NO FASTING: NO Performed By: #### 1 0231, 809, 6399 #### [facility], [address] [place] [address] [employer] Waiter/Waitress: Delano Olea MD CO2 [Moles/Vol] 32 mmol/L Normal 20-32 [facility] Comment on above: Order Comment: FASTI NG:NO FASTING: NO Performed By: #### 1 0231, 809, 6399 #### [facility], [address] [place] [address] [employer] Waiter/Waitress: Delano Olea MD Creatinine [Mass/Vol] 0.65 mg/dL Normal 0.50-0.99 [facility] Comment on above: Order Comment: FASTI NG:NO FASTING: NO Result Comment: For patients >49 years of age, the reference limit for Creatinine is approximately 13% higher for people identified as -[place]. Performed By: #### 1 023, 809, 6399 #### [facility]-[address], [address] [place] [address] [employer] Waiter/Waitress: Delano Olea MD eGFR NON-AFR. TAIWANESE 94 mL/min/1.73m2 Normal > OR = 60 [facility] Comment on above: Order Comment: FASTI NG:NO FASTING: NO Performed By: #### 1 023, 809, 6399 #### [facility]-[address], [address] [place] [address] [employer]et Waiter/Waitress: Delano Olea MD GFR/1.73 sq M predicted among blacks MDRD (S/P/Bld) [Vol rate/Area] 109 mL/min/{1.73_m2} Normal > OR = 60 [facility] Comment on above: Order Comment: FASTI NG:NO FASTING: NO Performed By: #### 1 023, 80, 6399 #### [facility]-[address], [address] [place] [address] [employer] Waiter/Waitress: Delano Olea MD Globulin (S) [Mass/Vol] 2.4 g/dL (calc) Normal 1.9-3.7 [facility] Comment on above: Order Comment: FASTI NG:NO FASTING: NO Performed By: #### 1 023, 80, 6399 #### [facility]-[address], [address] [place] [address] [employer]et Waiter/Waitress: Delano Olea MD Glucose [Mass/Vol] 95 mg/dL Normal 65-139 [facility] Comment on above: Order Comment: FASTI NG:NO FASTING: NO Result Comment: Non-fasting reference interval Performed By: #### 1 0231, 809, 6399 #### [facility], [address] [place] [address] [employer] Waiter/Waitress: Delano Olea MD Potassium [Moles/Vol] 3.4 mmol/L Low 3.5-5.3 [facility] Comment on above: Order Comment: FASTI NG:NO FASTING: NO Performed By: #### 1 0231, 809, 6399 #### [facility]-[address], [address] [place] [address] [employer] Waiter/Waitress: Delano Olea MD Protein [Mass/Vol] 6.9 g/dL Normal 6.1-8.1 [facility] Comment on above: Order Comment: FASTI NG:NO FASTING: NO Performed By: #### 1 023, 809, 6399 #### [facility]-[address], [address] [place] [address] [employer] Waiter/Waitress: Delano Olea MD Sodium [Moles/Vol] 142 mmol/L Normal 135-146 [facility] Comment on above: Order Comment: FASTI NG:NO FASTING: NO Performed By: #### 1 023, 809, 6399 #### [facility], [address] [place] [address] [employer] Waiter/Waitress: Delano Olea MD Urea nitrogen [Mass/Vol] 11 mg/dL Normal 7-25 [facility] Comment on above: Order Comment: FASTI NG:NO FASTING: NO Performed By: #### 1 230, 809, 6399 #### [facility], [address] [place] [address] [employer] Waiter/Waitress: Delano Olea MD Urea nitrogen/Creatinin e [Mass ratio] NOT APPLICABLE Normal 6-22 [facility] Comment on above: Order Comment: FASTI NG:NO FASTING: NO Performed By: #### 1 [id number], [id number], [id number] #### [facility], [address] [place] [address] Buffet Waiter/Waitress: Delano Olea MD SED RATE BY MODIFIED WESTERG RENon 12-01-2019 SED RATE BY MODIFIED WESTERGREN 6 mm/h Normal < OR = 30 [facility] Comment on above: Performed By: #### 1 [id number], [id number], [id number] #### [facility], [address] [place] [address] Buffet Waiter/Waitress: Delano Olea MD Vital Signs Date Time Vital Sign Value Performing Clinician Mery dockery 12-28-2023 14:05-0400 Body weight 71.6 kg Shakeel Abbott MD Work Phone: [facility] 12-28-2023 14:05-0400 Diastolic blood pressure 78 mm[Hg] Shakeel Abbott MD Work Phone: [facility] 12-28-2023 14:05-0400 Heart rate 88 /min Shakeel Abbott MD Work Phone: [facility] 12-28-2023 14:05-0400 SaO2% (BldA) [Mass fraction] 98 % Shakeel Abbott MD Work Phone: [facility] 12-28-2023 14:05-0400 Systolic blood pressure 140 mm[Hg] Shakeel Abbott MD Work Phone: [facility] 03-24-2022 11:49-0400 Diastolic blood pressure 98 mm[Hg] Lena Mcclellan PA-C Work Phone: [facility] 03-24-2022 11:49-0400 Systolic blood pressure 172 mm[Hg] Lena Mcclellan PA-C Work Phone: [facility] 03-24-2022 11:37-0400 Body weight 70.9 kg Lena Mcclellan PA-C Work Phone: [facility] 03-24-2022 11:37-0400 Heart rate 91 /min Lena Mcclellan PA-C Work Phone: [facility] 03-24-2022 11:37-0400 SaO2% (BldA) [Mass fraction] 99 % Lena Mcclellan PA-C Work Phone: [facility] Encounters Encounter Date Encounter Type Care Provider Facility Start: 05-12-2024 End: 05-13-2024 Documentation procedure Mammography Coordinator [facility] Start: 05-12-2024 End: 05-13-2024 Letter encounter Mammography Coordinator [facility] Start: 05-11-2024 End: 05-11-2024 ambulatory SHAKEEL ABBOTT Facility:[facility] Start: 05-11-2024 End: 05-11-2024 Subsequent hospital visit by physician Screen Mammo [facility] Comment on above: Encounter for screen ing mammogram for malignant neoplasm of breast [Z12.31] Start: 04-16-2024 ambulatory Shakeel Abbott MD Work Phone: [facility] Comment on above: Low potassium shown on blood test. Start: 04-04-2024 End: 04-04-2024 ambulatory SHAKEEL ABBOTT Facility:[facility] Start: 12-28-2023 End: 12-28-2023 ambulatory SHAKEEL ABBOTT Facility:[facility] Start: 12-28-2023 End: 12-28-2023 Patient encounter procedure Shakeel Abbott MD Work Phone: [facility] Comment on above: Medicare annual well ness visit, subsequent (Primary Dx); Screening for colon cancer; Hypertension, essential; SHYLA (generalized anxiety disorder); Hypercalcemia; Encounter for screening mammogram for malignant neoplasm of breast; Hyperlipidemia, mixed; Seronegative rheumatoid arthritis (HCC) Start: 12-01-2023 End: 12-01-2023 ambulatory SHAKEEL ABBOTT Facility:[facility] Start: 11-25-2023 Refill Shakeel Abbott MD Work Phone: [facility] Comment on above: Refill Request Start: 04-29-2023 Documentation procedure Mammog chris Coordinator [facility] Start: 04-29-2023 Letter encounter Mammography Coordinator [facility]CI[facility] ARE[facility] NOT LISTED Start: 04-28-2023 [facility] SHAKEEL ABBOTT Facility:[facility] Start: 04-28-2023 End: 04-28-2023 Subsequent hospital visit by physician Mammo/Bone Density [facility] Comment on above: Encounter for screen ing for osteoporosis [Z13.820] Start: 01-29-2023 ambulatory Shakeel Abbott MD Work Phone: [facility] Comment on above: Blood tests Start: 11-20-2022 End: 11-21-[address] DOCTOR CALLAHAN Facility:[facility] Start: 05-26-2022 End: 05-27-[address] DOCTOR CALLAHAN Facility:[facility] Start: 04-30-2022 Documentation procedure Mammog chris Coordinator [facility] Start: 04-30-2022 Letter encounter Mammography Coordinator [place]CI[facility] ARE[facility] NOT LISTED Start: 03-24-2022 End: 03-24-2022 Patient encounter procedure Lena Mcclellan PA-C Work Phone: [facility] [place] Comment on above: Hypertension, essent ial (Primary Dx); Hyperlipidemia, mixed; Seronegative rheumatoid arthritis (HCC); SHYLA (generalized anxiety disorder); Screening for colorectal cancer; Encounter for screening for malignant neoplasm of breast, unspecified screening modality Start: 02-11-2022 ambulatory Shakeel Abbott MD Work Phone: [facility] [place] Start: 09-18-2021 End: 09-18-2021 Subsequent hospital visit by physician Diagnostic Mammo [facility] Comment on above: Abnormal mammogram [ R92.8] Start: 02-20-2021 End: 02-20-2021 Subsequent hospital visit by physician Screen Mammo [facility] Comment on above: Screening mammogram, [...] mammograp hy computer-aided detcj uni Amalia Conner MORTGAGE PROCESSOR.CLOUD ADMINISTRATOR Work Phone: Start: 02-20-2021 End: 02-20-2021 Mammography Amalia Conner MORTGAGE PROCESSOR.CLOUD ADMINISTRATOR Work Phone: Start: 12-24-2020 Adult depression screening assessment Shakeel Abbott MD Work Phone: Plan of Treatment Date Care Activity Detail Author Start: 11-30-2028 Lipid panel Lipid Screening [facility] Start: 04-04-2027 Diabetes Screening Diabetes Screenin g [facility] Start: 02-17-2027 Lipid 1996 panel - Serum or Plasma Lipid Screening [facility] Start: 02-17-2027 Lipid panel Lipid Screening [facility] Start: 02-17-2027 LIPID SCREEN LIPID SCREEN [facility] Start: 01-11-2027 Screening for malign ant neoplasm of colon [facility] Start: 11-30-2026 Diabetes Screening Diabetes Screenin g [facility] Start: 08-27-2026 LIPID SCREEN LIPID SCREEN [facility] Start: 05-11-2025 Screening for malign ant neoplasm of breast Mammogram Screening [facility] Start: 02-17-2025 DIABETES SCREEN DIABETES SCREEN [facility] Start: 02-17-2025 Diabetes Screening Diabetes Screenin g [facility] Start: 12-28-2024 End: 12-28-2024 Patient encounter procedure 12/28/2024 1:40 PM EDT Office Visit [facility] [address] [place] [address] Shakeel Abbott MD [address] [place] [address] Return in about 1 year (around 12/27/2024) for Medicare Wellness. [facility] Comment on above: Return in about 1 ye ar (around 12/27/2024) for Medicare Wellness. Start: 12-27-2024 Annual PCP Team Sys Dir shelli Disease Visit Annual PCP Team Chronic Disease Visit [facility] Start: 12-27-2024 Covid-19 Vaccine ( season) Covid-19 Vaccine ( season) [facility] Comment on above: Postponed from 05/29 (Declined at this time) Start: 12-27-2024 Pneumococcal Vaccine : 65+ (1 of 1 - PCV) Pneumococcal Vaccine: 65+ (1 of 1 - PCV) [facility] Comment on above: Postponed from 02/24 (Declined at this time) Start: 12-27-2024 Urine microalbumin profile DTaP,Tdap,Td Vaccine (1 - Tdap) [facility] Comment on above: Postponed from 02/24 (Declined at this time) Start: 05-29-2024 Influenza vaccination [facility] Start: 05-11-2024 End: 05-11-2024 Patient encounter procedure 05/11/2024 11:30 AM EDT Appointment Mammography [address] [place] [address] Mammography Start: 04-28-2024 Mammography [facility] Start: 04-28-2024 Screening for malign ant neoplasm of breast Mammogram Screening [facility] Start: 03-28-2024 End: 06-27-2024 25-hydroxyvitamin D3 [Mass/volume] in Serum or Plasma VITAMIN D 25 HYDROXY Lab Routine Hypercalcemia Expected: 03/28/2024, Expires: 06/27/2024 [facility] Work Phone: Comment on above: Expected: 03/28/2024 , Expires: 06/27/2024 Start: 03-28-2024 End: 06-27-2024 Basic metabolic 2000 panel - Serum or Plasma BASIC METABOLIC PNL Lab Routine Hypercalcemia Expected: 03/28/2024, Expires: 06/27/2024 [facility] Work Phone: Comment on above: Expected: 03/28/2024 , Expires: 06/27/2024 Start: 03-28-2024 End: 06-27-2024 Calcium.ionized [Moles/volume] in Blood CALCIUM IONIZED BLOOD Lab Routine Hypercalcemia Expected: 03/28/2024, Expires: 06/27/2024 [facility] Work Phone: Comment on above: Expected: 03/28/2024 , Expires: 06/27/2024 Start: 03-28-2024 End: 06-27-2024 Parathyrin.intact [Mass/volume] in Serum or Plasma PTH INTACT BLD Lab Routine Hypercalcemia Expected: 03/28/2024, Expires: 06/27/2024 [facility] Work Phone: Comment on above: Expected: 03/28/2024 , Expires: 06/27/2024 Start: 02-21-2024 DIABETES SCREEN DIABETES SCREEN [facility] Start: 12-28-2023 End: 03-28-2024 COLOGUARD COLOGUARD Lab Routine Screening for colon cancer Expected: 12/28/2023, Expires: 03/28/2024 [facility] Work Phone: Comment on above: Expected: 12/28/2023 , Expires: 03/28/2024 Start: 12-06-2023 ANNUAL PCP TEAM MANAGER OF GLOBAL SHELLI DISEASE VISIT ANNUAL PCP TEAM CHRONIC DISEASE VISIT [facility] Start: 12-06-2023 COVID-19 VACCINE (3 - Booster for Pfizer series) COVID-19 VACCINE (3 - Booster for Pfizer series) [facility] Comment on above: Postponed from 01/25 (Declined at this time) Start: 12-06-2023 COVID-19 VACCINE (3 - Pfizer series) COVID-19 VACCINE (3 - Pfizer series) [facility] Comment on above: Postponed from 01/25 (Declined at this time) Start: 12-06-2023 Pneumococcal Vaccine : 65+ (1 - PCV) Pneumococcal Vaccine: 65+ (1 - PCV) [facility] Comment on above: Postponed from 02/24 (Declined at this time) Start: 12-06-2023 Pneumococcal Vaccine : 65+ (1 of 1 - PCV) Pneumococcal Vaccine: 65+ (1 of 1 - PCV) [facility] Comment on above: Postponed from 02/24 (Declined at this time) Start: 12-06-2023 PNEUMOCOCCAL: 65+ (1 - PCV) PNEUMOCOCCAL: 65+ (1 - PCV) [facility] Comment on above: Postponed from 02/24 (Declined at this time) Start: 12-06-2023 SHINGRIX VACCINE (1 of 2) SHINGRIX VACCINE (1 of 2) [facility] Comment on above: Postponed from 02/24 (Declined at this time) Start: 12-06-2023 Urine microalbumin profile [facility] Comment on above: Postponed from 02/24 (Declined at this time) Start: 11-25-2023 End: 2024 CBC panel - Blood by Automated count CBC Lab Routine Hypertension, essential Expected: 11/25/2023, Expires: 2024 [facility] Work Phone: Comment on above: Expected: 11/25/2023 , Expires: 2024 Start: 11-25-2023 End: 2024 Comprehensive metabolic 2000 panel - Serum or Plasma COMP METABOLIC PANEL Lab Routine Hypertension, essential Expected: 11/25/2023, Expires: 2024 [facility] Work Phone: Comment on above: Expected: 11/25/2023 , Expires: 2024 Start: 11-25-2023 End: 2024 Lipid 1996 panel - Serum or Plasma LIPID PANEL BASIC Lab Routine Hypertension, essential Expected: 11/25/2023, Expires: 2024 [facility] Work Phone: Comment on above: Expected: 11/25/2023 , Expires: 2024 Start: 09-28-2023 Advance Directive Discussion Advance Directive Discussion [facility] Start: 09-28-2023 Behavioral Health Screening Behavioral Health Screening [facility] Start: 09-28-2023 Depression Assessment Depression Ass essment [facility] Start: 05-29-2023 Covid-19 Vaccine () Covid-19 Vaccine () [facility] Start: 05-29-2023 Influenza vaccination [facility] Start: 04-30-2023 Mammography MAMMOGRAM [facility] Start: 03-24-2023 ANNUAL PCP TEAM MANAGER OF GLOBAL SHELLI DISEASE VISIT ANNUAL PCP TEAM CHRONIC DISEASE VISIT [facility] Start: 03-20-2023 Adult depression screening assessment DEPRESSION SCREENING [facility] Start: 01-29-2023 End: 03-31-2023 CBC panel - Blood by Automated count CBC Lab Routine Hypertension, essential Expected: 01/29/2023, Expires: 03/31/2023 [facility] Work Phone: Comment on above: Expected: 01/29/2023 , Expires: 03/31/2023 Start: 01-29-2023 End: 03-31-2023 Comprehensive metabolic 2000 panel - Serum or Plasma COMP METABOLIC PANEL Lab Routine Hypertension, essential Expected: 01/29/2023, Expires: 03/31/2023 [facility] Work Phone: Comment on above: Expected: 01/29/2023 , Expires: 03/31/2023 Start: 01-29-2023 End: 07-04-2023 Lipid 1996 panel - Serum or Plasma LIPID PANEL BASIC Lab Routine Hyperlipidemia, mixed Expected: 01/29/2023, Expires: 03/31/2023 [facility] Work Phone: Comment on above: Expected: 01/29/2023 , Expires: 03/31/2023 Start: 08-27-2022 ANNUAL PCP TEAM MANAGER OF GLOBAL SHELLI DISEASE VISIT ANNUAL PCP TEAM CHRONIC DISEASE VISIT [facility] Start: 05-29-2022 Influenza vaccination [facility] Start: 02-20-2022 Mammography MAMMOGRAM [facility] Start: 02-11-2022 End: 04-13-2022 Basic metabolic 2000 panel - Serum or Plasma BASIC METABOLIC PNL Lab Routine Hypertension, essential Expected: 02/11/2022, Expires: 04/13/2022 [facility] Work Phone: Comment on above: Expected: 02/11/2022 , Expires: 04/13/2022 Start: 02-11-2022 End: 04-13-2022 SCHEDULE LAB TESTING SCHEDULE LAB TESTING Lab Routine Expected: 02/11/2022, Expires: 04/13/2022 [facility] Work Phone: Comment on above: Expected: 02/11/2022 , Expires: 04/13/2022 Start: 12-24-2021 Adult depression screening assessment DEPRESSION SCREENING [facility] Start: 09-28-2021 ADVANCE DIRECTIVE DISCUSSION ADVANCE DIRECTIVE DISCUSSION [facility] Start: 12-28-2020 COVID-19 VACCINE (3 - Pfizer risk series) COVID-19 VACCINE (3 - Pfizer risk series) [facility] Start: 02-25-2020 PNEUMOVAX AGE 65 AND OVER WITH 5YR LOOKBACK (#1) PNEUMOVAX AGE 65 AND OVER WITH 5YR LOOKBACK (#1) [facility] Start: 2015 RSV Vaccine (1 - 1-d ose 60+ series) RSV Vaccine (1 - 1-dose 60+ series) [facility] Start: 2005 SHINGRIX VACCINE (1 of 2) SHINGRIX VACCINE (1 of 2) [facility] Start: 02-25-2000 COLOGUARD (FIT-DNA) COLOGUARD (FIT-D NA) [facility] Start: 02-25-2000 Colonoscopy COLONOSCOPY [facility] Start: 02-25-2000 COLORECTAL CANCER SCREENING COLORECTAL CANCER SCREENING [facility] Start: 02-25-[address] COLONOGRAPHY [facility] Start: 02-25-2000 FECAL OCCULT BLOOD FECAL OCCULT BLOO D [facility] Start: 02-25-2000 Screening for malign ant neoplasm of colon [facility] Start: 02-25-2000 [facility] Start: 1974 SHINGRIX VACCINE (1 of 2) SHINGRIX VACCINE (1 of 2) [facility] Start: 1974 Urine microalbumin profile DTAP,TDAP,TD (1 - Tdap) [facility] Start: 1973 BP CONTROLLED (<130/80) BP CONTROLLE D (<130/80) [facility] Start: 1973 Depression Screening Depression Scre ening [facility] Start: 1961 PNEUMOCOCCAL: 65+ (1 - PCV) PNEUMOCOCCAL: 65+ (1 - PCV) [facility] End: 01-26-2025 DBT Breast - bilateral screening NOÉ SCREENING [facility] Radiology Routine Encounter for screening mammogram for malignant neoplasm of breast 1 Occurrences starting 12/28/2023 until 01/26/2025 [facility] Work Phone: Comment on above: 1 Occurrences starti ng 12/28/2023 until 01/26/2025 DBT Breast - bilater al screening NOÉ SCREENING W [facility] Radiology Routine Encounter for screening mammogram for malignant neoplasm of breast 05/11/2024 11:39 AM EDT [facility] Work Phone: DXA-AXIAL SKELETON DXA-AXIAL SKE LETON Radiology Routine Encounter for screening for osteoporosis Asymptomatic postmenopausal status 04/28/2023 3:16 PM EDT [facility] Work Phone: End: 04-28-2023 NOÉ SCREENING W MANDA [facility] Work Phone: Comment on above: ONCE for 1 Occurrenc es starting 04/28/2023 until 04/28/2023 End: 03-24-2023 Screening colonoscopy COLONOSCOPY SCREENING Endoscopy Routine Screening for colorectal cancer 1 Occurrences starting 03/24/2022 until 03/24/2023 [facility] Work Phone: Comment on above: 1 Occurrences starti ng 03/24/2022 until 03/24/2023 End: 04-23-2023 Screening mammography bi 2-view breast inc cad NOÉ SCREENING Radiology Routine Encounter for screening for malignant neoplasm of breast, unspecified screening modality 1 Occurrences starting 03/24/2022 until 04/23/2023 [facility] Work Phone: Comment on above: 1 Occurrences starti ng 03/24/2022 until 04/23[facility] Immunizations Immunization Date Immunization Notes Care Provider Fa cili 11-30-2020 COVID-19 vaccine, ag e 12+ yr (PFIZER-BIONTECH - PURPLE TOP) Shakeel Abbott MD Work Phone: [facility] 11-09-2020 COVID-19 vaccine, ag e 12+ yr (PFIZER-BIONTECH - PURPLE TOP) Shakeel Abbott MD Work Phone: [facility] Payers Date Payer Category Payer Medicare MEDICARE MEDICAR E A AND B [id number] 2020-Present [phone] [place] [address] Medicare [id number] 2020 Medicare MEDICARE MEDICAR E A AND B [id number] 2020-Present [phone] [address] [address] [place] [address] Medicare [id number] 2020 Unknown MMO MMO MEDICARE SUPPLEMENT [id number] 2020-Present [phone] [address] [place] [address] Indemnity [id number] 2020 Unknown MMO MMO MEDICARE SUPPLEMENT [id number] 2020-Present [phone] [address] [place] [address] Indemnity [id number] 1959 Medicare [id number] 1959 Unknown [id number] 1955 Unknown [id number] 1955 Unknown [id number] Social History Date Type Detail Facility Start: 12-25-2020 End: 12-05-2022 Tobacco smoking status NHIS Never smoked tobacco [facility] Start: 08-27-2021 End: 12-28-2023 Alcohol intake Current non-drinker of alcohol (finding) [facility] Start: 12-24-2020 End: 12-01-2022 History SDOH Alcohol Frequency 1 [facility] Start: 12-24-2020 End: 12-01-2022 History SDOH Social Connections Phone 5 [facility] Start: 12-24-2020 History SDOH Social Connections Get Together 4 [facility] Start: 12-24-2020 End: 12-01-2022 History SDOH Social Connections [employer] 3 [facility] Start: 12-24-2020 End: 12-01-2022 History SDOH Stress 2 [facility] Start: 12-24-2020 Education 15 [facility] Start: 1955 Sex Assigned At Female [facility] Start: 07-28-2021 End: 04-30-2022 Exposure to SARS-CoV-2 (event) Not sure [facility] Start: 12-25-2020 End: 12-05-2022 Tobacco use and exposure Smokeless tobacco non-user [facility] Work Phone: Start: 12-01-2022 History SDOH Alcohol Std Drinks 0 [facility] Start: 12-01-2022 End: 04-28-2023 History of Social function [facility] Start: 12-01-2022 End: 04-28-2023 Social connection and isolation panel [facility] Do you belong to any clubs or organizations such as denominational groups, unions, fraternal or athletic groups, or school groups? Yes [facility] Are you now , , , , never or living with a partner? [facility] How often to you hav e a drink containing alcohol? Never [facility] How many standard dr inks containing alcohol do you have on a typical day? Patient does not drink [facility] Do you feel stress - tense, restless, nervous, or anxious, or unable to sleep at night because your mind is troubled all the time - these days [OSQ] Not at all [facility] (I/We) worried wheth er (my/our) food would run out before (I/we) got money to buy more. Never true [facility] In the past 12 month s, was there a time when you were not able to pay the mortgage or rent on time? No [facility] Start: 12-24-2020 Gender identity Identifies as female gender (finding) [facility] Start: 12-24-2020 Sexual orientation Heterosexual (finding) [facility] Do you feel stress - tense, restless, nervous, or anxious, or unable to sleep at night because your mind is troubled all the time - these days [OSQ] Only a little [facility] Clinical Notes 11-15-2004 to 05-12-2024 Letter - Coordinator, Mammography - 05/12/2024 7:03 PM Dhiraj - Coordinator, Mammography - 05/12/2024 7:03 PM Sarahy Leblanc RT(R) - 05/11/2024 11:30 AM EDTPatient Instructions Note Date & Type Note Facility 05-12-2024 Note Formatting of this n ote might be different from the original. May 13, 2024 PID: [id number] Mary Dempsey [address] [place] [address] [address] [place] [address] Dear Ms. Dempsey, We are pleased to inform you that the results of your recent breast imaging exam on 05/11/2024 are normal. Breast tissue can be either dense or not dense. Dense tissue makes it harder to find breast cancer on a mammogram and also raises the risk of developing breast cancer. Your breast tissue is dense. In some people with dense tissue, other imaging tests in addition to a mammogram may help find cancers. Talk to your healthcare provider about breast density, risks for breast cancer, and your individual situation. Early detection of cancer is very important. We also understand recommendations regarding breast cancer screening are controversial. Please discuss with your primary care provider which strategy is best for you and whether a mammogram is right for you. Your imaging studies and report will be kept on file at [facility] as part of your permanent medical record and are available for your continuing care. Thank you for allowing us to help in meeting your health care needs. Sincerely, Dr. Lozano Interpreting Radiologist [facility] (Normal over 40) [facility] 05-12-2024 Miscellaneous Notes May 13, 2024 PID: [id number] Mary Dempsey [address] [place] [address] Dear Ms. Dempsey, We are pleased to inform you that the results of your recent breast imaging exam on 05/11/2024 are normal. Breast tissue can be either dense or not dense. Dense tissue makes it harder to find breast cancer on a mammogram and also raises the risk of developing breast cancer. Your breast tissue is dense. In some people with dense tissue, other imaging tests in addition to a mammogram may help find cancers. Talk to your healthcare provider about breast density, risks for breast cancer, and your individual situation. Early detection of cancer is very important. We also understand recommendations regarding breast cancer screening are controversial. Please discuss with your primary care provider which strategy is best for you and whether a mammogram is right for you. Your imaging studies and report will be kept on file at [facility] as part of your permanent medical record and are available for your continuing care. Thank you for allowing us to help in meeting your health care needs. Sincerely, Dr. Lozano Interpreting Radiologist [facility] (Normal over 40) documented in this encounter [facility] 05-11-2024 History of Presen t illness Narrative Radiology Service Progress Note PATIENT NAME: Mary Dempsey DATE OF SERVICE: May 11, 2024 TIME: 11:25 AM PATIENT IDENTITY VERIFICATION COMPLETED USING TWO (2) IDENTIFIERS: Name and Date of confirmed by patient verbally. FALL SCREENING: Has the patient had 2 falls in the last year or 1 fall with injury or currently using an Ambulatory Assistive Device (Walker, Cane, Wheelchair, Crutches, etc.)? No PATIENT GENDER DATA: Female. status: : No status: NO. PATIENT RELEVANT IMPLANT DATA REVIEWED: Not Applicable PATIENT PRESENTS WITH AN IMPLANTABLE OR ATTACHED ELECTRICAL MAINTENANCE ENGINEER: No RADIOLOGY DEPARTMENT: Mammography PERIPHERAL IV DATA: Not applicable SIGNED BY: RT Tristan(Joey) May 11, 2024 11:25 AM documented in this encounter [facility] 05-11-2024 Note HNO ID: [id number] Author: SARAHY LANDAVERDE RT(R) Service: ? Author Type: Technologist Type: Progress Notes Filed: 05/11/2024 11:25 Note Text: Radiology Service Progress Note PATIENT NAME: Mary Dempsey DATE OF SERVICE: May 11, 2024 TIME: 11:25 AM PATIENT IDENTITY VERIFICATION COMPLETED USING TWO (2) IDENTIFIERS: Name and Date of confirmed by patient verbally. FALL SCREENING: Has the patient had 2 falls in the last year or 1 fall with injury or currently using an Ambulatory Assistive Device (Walker, Cane, Wheelchair, Crutches, etc.)? No PATIENT GENDER DATA: Female. status: : No status: NO. PATIENT RELEVANT IMPLANT DATA REVIEWED: Not Applicable PATIENT PRESENTS WITH AN IMPLANTABLE OR ATTACHED ELECTRICAL MAINTENANCE ENGINEER: No RADIOLOGY DEPARTMENT: Mammography PERIPHERAL IV DATA: Not applicable SIGNED BY: RT Tristan(Joey) May 11, 2024 11:25 AM [facility] 04-18-2024 Telephone encounter Note The following approved medication requests have been transmitted electronically. Requested Prescriptions Signed Prescriptions Disp Refills potassium chloride ER (KLOR-CON M20) 20 mEq tablet 90 tablet 3 Sig: Take 1 tablet by mouth once daily. Shakeel Abbott MD [facility] 04-18-2024 Miscellaneous Notes The following approved medication requests have been transmitted electronically. Requested Prescriptions Signed Prescriptions Disp Refills potassium chloride ER (KLOR-CON M20) 20 mEq tablet 90 tablet 3 Sig: Take 1 tablet by mouth once daily. Shakeel Abbott MD Reply to Novogeniechristopher result note. documented in this encounter [facility] 04-18-2024 Telephone encounter Note Reply to philip result note. [facility] 12-28-2023 Instructions Shakeel Abbott MD - 12/28/2023 [...] review all the medicines you take, even lawu-cza-ezriwqy medicines. As you get older, the way [...] certain medical conditions. documented in this encounter [facility] 12-28-2023 Note HNO ID: [id number] Author: SHAKEEL ABBOTT MD Service: ? Author Type: Physician Type: Progress Notes Filed: 12/28/2023 15:21 Note Text: Mary Dempsye is a 68 year old female here [...] in the medical record. Sees rheumatology in [facility]/Family history review Reviewed and updated problem [...] ICD9: 714.0, ICD10: M06.00 Following with outside button tacker, stable on Pl[place]il Shakeel Abbott MD [facility] 12-28-2023 History of Presen t illness Narrative [...] in the medical record. Sees rheumatology in [facility]/Family history review Reviewed and updated problem [...] ICD9: 714.0, ICD10: M06.00 Following with outside button tacker, stable on [place]il Shakeel Abbott MD documented in this encounter [facility] 11-25-2023 Miscellaneous Notes Please advise patient to [...] Janet Solomon MA documented in this encounter [facility] 04-29-2023 Miscellaneous Notes [address] [address] April 29, 2023 PID: [id number] Mary Dempsey [address] [place] [address] [address] [place] [address] Dear Ms. Dempsey, We are pleased to [...] report will be kept on file at [facility] as part of your permanent medical record and are available for your continuing care. Thank you for allowing us to help in meeting your health care needs. Sincerely, Dr. Sam Interpreting Radiologist [facility] (Normal over 40) documented in this encounter [facility] 04-28-2023 Note HNO ID: [id number] Author: Mary Khan RT(Joey) Service: Radiology Author [...] LOVELY Bliss) April 28, 2023 3:18 PM [facility] 04-28-2023 Note HNO ID: [id number] Author: Mary Khan RT(Joey) Service: Radiology Author [...] RT Ruthy(R) April 28, 2023 3:17 PM [facility] 04-28-2023 History of Presen t illness [...] SIGNED BY: RT Ruthy(R) April 28, 2023 3:18 PM documented in this encounter [facility] 04-28-2023 History of Presen t illness Narrative [...] 2023 3:17 PM documented in this encounter [facility] 01-29-2023 Miscellaneous Notes Orders pended for signature. Patient would CBC, Comp Metabolic, and Lipid panel (fasting) reordered so that she will be able to have done when she comes in for colonoscopy on 02/06/23. Please review and advise. documented in this encounter [facility] 04-30-2022 Miscellaneous Notes [address] [address] April 30, 2022 PID: [id number] Mary Dempsey [address] [place] [address] [address] [place] [address] Dear Ms. Dempsey, We are pleased to [...] report will be kept on file at [facility] as part of your permanent medical record and are available for your continuing care. Thank you for allowing us to help in meeting your health care needs. Sincerely, Dr. García Interpreting Radiologist [facility] (Normal over 40) documented in this encounter [facility] 03-24-2022 Instructions Lena Mcclellan PA-C - 03/24/2022 [...] Lena Mcclellan PA-C documented in this encounter [facility] 03-24-2022 History of Presen t illness Narrative This note was created using Cloud Floor[employer]. Subjective Mary Dempsey is a 67 year [...] Lena Mcclellan PA-C documented in this encounter [facility] 09-18-2021 History of Presen t illness Narrative [...] 2021 10:46 AM documented in this encounter [facility] 02-20-2021 History of Presen t illness Narrative [...] 2021 11:05 AM documented in this encounter [facility] 11-15-2004 History of Past i llness Narrative Problem Noted Date Resolved Date Malignant neoplasm of female breast 11/15/2004 03/27/2008 documented as of this encounter (statuses as of 02/14/2022) [facility] History of Past illness Narrative* Problem Noted Date Resolved Date Malignant neoplasm of female breast 11/15/2004 03/27/2008 documented as of this encounter (statuses as of 03/24/2022) [facility] History of Past illness Narrative* Problem Noted Date Resolved Date Malignant neoplasm of female breast 11/15/2004 03/27/2008 documented as of this encounter (statuses as of 05/02/2022) [facility] History of Past illness Narrative* Problem Noted Date Resolved Date Malignant neoplasm of female breast 11/15/2004 03/27/2008 documented as of this encounter (statuses as of 01/29/2023) [address] History of Past illness Narrative* Problem Noted Date Diagnosed Date Resolved Date Malignant neoplasm of female breast 11/15/2004 03/27/2008 documented as of this encounter (statuses as of 04/29/2023) [address] History of Past illness Narrative* Problem Noted Date Diagnosed Date Resolved Date Malignant neoplasm of female breast 11/15/2004 03/27/2008 documented as of this encounter (statuses as of 04/29/2023) [address] History of Past illness Narrative* Problem Noted Date Diagnosed Date Resolved Date Malignant neoplasm of female breast 11/15/2004 03/27/2008 documented as of this encounter (statuses as of 05/01/2023) [address] History of Past illness Narrative* Problem Noted Date Diagnosed Date Resolved Date Malignant neoplasm of female breast 11/15/2004 03/27/2008 documented as of this encounter (statuses as of 05/08/2023) [address] History of Past illness Narrative* Problem Noted Date Diagnosed Date Resolved Date Malignant neoplasm of female breast 11/15/2004 03/27/2008 documented as of this encounter (statuses as of 07/30/2023) [address] History of Past illness Narrative* Problem Noted Date Diagnosed Date Resolved Date Malignant neoplasm of female breast 11/15/2004 03/27/2008 documented as of this encounter (statuses as of 11/26/2023) [address] History of Past illness Narrative* Problem Noted Date Diagnosed Date Resolved Date Malignant neoplasm of female breast 11/15/2004 03/27/2008 documented as of this encounter (statuses as of 12/29/2023) [facility] Hypertension, essential Unspecified essential hypertension [facility] Diagnosis Hypertension, essential- Primary Unspecified essential hypertension Hyperlipidemia, mixed Mixed hyperlipidemia Seronegative rheumatoid arthritis (HCC) Rheumatoid arthritis SHYLA (generalized anxiety disorder) Generalized anxiety disorder Encounter for screening for malignant neoplasm of breast, unspecified screening modality [facility] Diagnosis Hypertension, essential- Primary Unspecified essential hypertension Hyperlipidemia, mixed Mixed hyperlipidemia documented in this encounter [facility] note* Diagnosis Encounter for screening for osteoporosis Special screening for osteoporosis Asymptomatic postmenopausal status documented in this encounter [facility] note* Diagnosis Encounter for screening mammogram for malignant neoplasm of breast Other screening mammogram documented in this encounter [facility] note* Diagnosis Screening mammogram, encounter for documented in this encounter [facility] note* Diagnosis Abnormal mammogram Abnormal mammogram, unspecified documented in this encounter [facility] note* Diagnosis Hypertension, essential- Primary Unspecified essential hypertension documented in this encounter [facility] note* Diagnosis Medicare annual wellness visit, subsequent- Primary Routine general medical examination at a health care facility Screening for colon cancer Special screening for malignant neoplasms, colon Hypertension, essential Unspecified essential hypertension SHYLA (generalized anxiety disorder) Generalized anxiety disorder Hypercalcemia Encounter for screening mammogram for malignant neoplasm of breast Other screening mammogram Hyperlipidemia, mixed Mixed hyperlipidemia Seronegative rheumatoid arthritis (HCC) Rheumatoid arthritis documented in this encounter [facility] note* Diagnosis Hypokalemia- Primary Hypopotassemia documented in this encounter [facility] note* Diagnosis Encounter for screening mammogram for malignant neoplasm of breast Other screening mammogram documented in this encounter [facility] for referral (narrative)* Diagnostic Procedure Only (Routine) - Authorized Specialty Diagnoses / Procedures Referred By Dariela norton Referred To Contact [facility] Diagnoses Encounter for screening for malignant neoplasm of breast, unspecified screening modality Procedures NOÉ SCREENING SCREENING MAMMOGRAPHY BI 2-VIEW BREAST INC CAD Lena Mcclellan PA-C [address] [place] [address] [facility] [address] [place] [address] Referral ID Status Reason Start Date Expiration Date Visits Requested Visits Authorized [id number] Authorized Auto-Generat ed Referral 03/24/2022 04/23/2023 1 1 * Outpatient Procedure (Routine) - Authorized Specialty Diagnoses / Procedures Referred By Dariela norton Referred To Contact [facility] Diagnoses Screening for colorectal cancer Procedures COLONOSCOPY SCREENING COLONOSCOPY FLX DX W/COLLJ SPEC WHEN PFRMD Lena Mcclellan PA-C [address] [place] [address] [facility] [address] [place] [address] Referral ID Status Reason Start Date Expiration Date Visits Requested Visits Authorized [id number] Authorized Auto-Generat ed Referral 03/24/2022 03/24/2023 1 1 [facility] for referral (narrative)* Diagnostic Procedure Only (Routine) - Pending Review Specialty Diagnoses / Procedures Referred By Dariela norton Referred To Contact [facility] Diagnoses Encounter for screening mammogram for malignant neoplasm of breast Procedures NOÉ SCREENING W MANDA SCREENING DIGITAL BREAST TOMOSYNTHESIS BI SCREENING MAMMOGRAPHY BI 2-VIEW BREAST INC Shakeel Stringer MD [address] [place] [address] [facility] [address] [place] [phone] Referral ID Status Reason Start Date Expiration Date Visits Requested Visits Authorized [id number] Pending Review Auto-Generat ed Referral 12/28/2023 01/26/2025 1 1 [facility] for visit Narrative* Diagnostic Procedure Only (Routine) - Closed Specialty Diagnoses / Procedures Referred By Dariela norton Referred To Contact [facility] Diagnoses Encounter for screening mammogram for malignant neoplasm of breast Procedures NOÉ SCREENING SCREENING MAMMOGRAPHY BI 2-VIEW BREAST INC Shakeel Stringer MD [address] [place] [address] [facility] [address] [place] [phone] Referral ID Status Reason Start Date Expiration Date V isits Requested Visits Authorized [id number] Closed Auto-Generate d Referral 04/28/2023 01/04/2024 1 1 [facility] Summary Purpose Family History No Family History Records FoundNo Family History Records FoundNo Family History Records FoundNo Family History Records FoundNo Family History Records FoundNo Family History Records Found Advance Directives No Advanced Directives Records FoundDocuments on File Type Date Recorded Patient Hander In Expl anation Advance Directive(s) Advance Directive(s) 12/21/2020 1:20 PM Documents on File Type Date Recorded Patient Hander In Expl anation Advance Directive(s) Advance Directive(s) 12/21/2020 1:20 PM Additional Source Comments INFORMATION SOURCE (unrecogn ized section and content) DATE CREATED AUTHOR 12/01/2019 [facility] DATE CREATED AUTHOR AUTHOR'S ORGANIZ ATION 12/23/2020 [facility] DATE CREATED AUTHOR AUTHOR'S ORGANIZ ATION 12/18/2021 [facility] dical Specialist DATE CREATED AUTHOR AUTHOR'S ORGANIZ ATION 11/25/[address] [facility] DATE CREATED AUTHOR AUTHOR'S ORGANIZ ATION 05/01/2023 [facility] DATE CREATED AUTHOR AUTHOR'S ORGANIZ ATION 05/18/2024 [facility] Source Comments (unrecognize d section and content) In the event this informatio n is protected by the Federal Confidentiality of Alcohol and Drug Abuse Patient Records regulations: The Federal rules restrict any use of the information to criminally investigate or prosecute any alcohol or drug abuse patient.[facility] event this information is protected by the Federal Confidentiality of Alcohol and Drug Abuse Patient Records regulations: The Federal rules restrict any use of the information to criminally investigate or prosecute any alcohol or drug abuse patient.[facility] the event this information is protected by the Federal Confidentiality of Alcohol and Drug Abuse Patient Records regulations: The Federal rules restrict any use of the information to criminally investigate or prosecute any alcohol or drug abuse patient.[facility] event this information is protected by the Federal Confidentiality of Alcohol and Drug Abuse Patient Records regulations: The Federal rules restrict any use of the information to criminally investigate or prosecute any alcohol or drug abuse patient.[facility] event this information is protected by the Federal Confidentiality of Alcohol and Drug Abuse Patient Records regulations: The Federal rules restrict any use of the information to criminally investigate or prosecute any alcohol or drug abuse patient.[facility] the event this information is protected by the Federal Confidentiality of Alcohol and Drug Abuse Patient Records regulations: The Federal rules restrict any use of the information to criminally investigate or prosecute any alcohol or drug abuse patient.[facility] the event this information is protected by the Federal Confidentiality of Alcohol and Drug Abuse Patient Records regulations: The Federal rules restrict any use of the information to criminally investigate or prosecute any alcohol or drug abuse patient.[facility] event this information is protected by the Federal Confidentiality of Alcohol and Drug Abuse Patient Records regulations: The Federal rules restrict any use of the information to criminally investigate or prosecute any alcohol or drug abuse patient.[facility] the event this information is protected by the Federal Confidentiality of Alcohol and Drug Abuse Patient Records regulations: The Federal rules restrict any use of the information to criminally investigate or prosecute any alcohol or drug abuse patient.[facility] the event this information is protected by the Federal Confidentiality of Alcohol and Drug Abuse Patient Records regulations: The Federal rules restrict any use of the information to criminally investigate or prosecute any alcohol or drug abuse patient.[facility] the event this information is protected by the Federal Confidentiality of Alcohol and Drug Abuse Patient Records regulations: The Federal rules restrict any use of the information to criminally investigate or prosecute any alcohol or drug abuse patient.[facility] the event this information is protected by the Federal Confidentiality of Alcohol and Drug Abuse Patient Records regulations: The Federal rules restrict any use of the information to criminally investigate or prosecute any alcohol or drug abuse patient.[facility] the event this information is protected by the Federal Confidentiality of Alcohol and Drug Abuse Patient Records regulations: The Federal rules restrict any use of the information to criminally investigate or prosecute any alcohol or drug abuse patient.[facility] the event this information is protected by the Federal Confidentiality of Alcohol and Drug Abuse Patient Records regulations: The Federal rules restrict any use of the information to criminally investigate or prosecute any alcohol or drug abuse patient.[facility] Care Teams (unrecognized sec tion and content) Nutritional Services Host Relationship Specialty Start Date End Date Shakeel Abbott MD [address] [place] [address] PCP - General Family Practice 05/13/21 Nutritional Services Host Relationship Specialty Start Date End Date Shakeel Abbott MD [address] [place] [address] PCP - General Family Practice 05/13/21 Nutritional Services Host Relationship Specialty Start Date End Date Shakeel Abbott MD [address] [place] [address] PCP - General Family Practice 05/13/21 Nutritional Services Host Relationship Specialty Start Date End Date Shakeel Abbott MD [address] [place] [address] PCP - General Family Medicine 05/13/21 Nutritional Services Host Relationship Specialty Start Date End Date Shakeel Abbott MD [address] [place] [address] PCP - General Family Medicine 05/13/21 Nutritional Services Host Relationship Specialty Start Date End Date Shakeel Abbott MD [address] [place] [address] PCP - General Family Medicine 05/13/21 Nutritional Services Host Relationship Specialty Start Date End Date Shakeel Abbott MD [address] [place] [address] PCP - General Family Medicine 05/13/21 Nutritional Services Host Relationship Specialty Start Date End Date Kash Person MD [address] [place] [address] PCP - General 11/01/04 03/22/21 Nutritional Services Host Relationship Specialty Start Date End Date Shakeel Abbott MD [address] [facility] [address] PCP - General Family Medicine 05/13/21 Nutritional Services Host Relationship Specialty Start Date End Date Shakeel Abbott MD [address] [place] [place] [address] PCP - General Family Medicine 05/13/21 Nutritional Services Host Relationship Specialty Start Date End Date Shakeel Abbott MD [address] [facility] [place] [address] PCP - General Family Medicine 05/13/21 Nutritional Services Host Relationship Specialty Start Date End Date Shakeel Abbott MD [address] [facility] [place] [address] PCP - General Family Medicine 05/13/21 Nutritional Services Host Relationship Specialty Start Date End Date Shakeel Abbott MD [address] [facility] [place] [address] PCP - General Family Medicine 05/13/21 Reason for Visit (unrecogniz ed section and content) Reason Comments Radiology Mammogram Specialty Diagnoses / Procedures Referred By Contac t Referred To Contact [facility] Diagnoses Encounter for screening mammogram for malignant neoplasm of breast Procedures NOÉ SCREENING W MANDA SCREENING DIGITAL BREAST TOMOSYNTHESIS BI SCREENING MAMMOGRAPHY BI 2-VIEW BREAST INC CAD Shakeel Abbott MD [address] [place] [address] [facility] [address] [place] [address] Referral ID Status Reason Start Date Expiration Date V isits Requested Visits Authorized [id number] Closed Auto-Generate d Referral 12/28/2023 01/26/2025 1 1 Reason Comments Recheck 6 month for HTN. Sta shanell she has been feeling good. Sttes that her BP is usually good at home. Reason Comments Refill Request Reason Comments Hypertension [...] BE BASED ON THE PRIMARY CLINICAL RECORDS. [facility]. provides no warranty or guarantee of the accuracy or completeness of information in this document.
[2024-08-01 10:05] LABS: Basophils Absolute Auto 0.1 10^3/uL (0.0-0.1); Basophils Percent Auto 0.6 % (0.2-2.0); Eosinophils Absolute Auto 0.1 10^3/uL (0.0-0.7); Eosinophils Percent Auto 1.8 % (0.9-7.0); Hematocrit 41.5 % (36.0-48.0); Hemoglobin 13.6 g/dL (12.0-16.0); Immature Granulocytes Abs Auto 0.02 10^3/uL (0.00-0.03); Immature Granulocytes Pct Auto 0.3 % (0.0-0.5); Lymphocytes Absolute Auto 1.7 10^3/uL (1.2-3.8); Lymphocytes Percent Auto 20.7 % (20.5-60.0); Mean Corpuscular HGB Conc 32.8 g/dL (29.9-35.2); Mean Corpuscular Hemoglobin 27.9 pg (26.7-34.0); Mean Platelet Volume 8.9 fL (9.5-13.5); Monocytes Absolute Auto 0.7 10^3/uL (0.3-0.8); Monocytes Percent Auto 8.1 % (1.7-12.0); Neutrophils Absolute Auto 5.5 10^3/uL (1.4-6.5); Neutrophils Percent Auto 68.5 % (43.0-75.0); Platelet Count 280 10^3/uL (150-450); Red Blood Count 4.88 10^6/uL (4.20-5.40)
[2024-08-01 10:06] LABS: Erythrocyte Sedimentation Rate 54 mm/hr (<=30)
[2024-08-01 10:57] LABS: Alanine Aminotransferase 36 U/L (14-59); Albumin Level 3.7 g/dL (3.4-5.0); Alkaline Phosphatase 83 U/L (46-116); Anion Gap 14.6; Aspartate Amino Transferase 27 U/L (15-37); BUN Creatinine Ratio 13.4; Bilirubin Total 0.6 mg/dL (0.2-1.0); Calcium 9.7 mg/dL (8.5-10.1); Carbon Dioxide 29.3 mmol/L (21.0-32.0); Chloride 104 mmol/L (98-107); Estimated GFR (African America >60 (>=60 mL/min/1.73m^2); Estimated GFR (Non-African Ame >60 (>=60 mL/min/1.73m^2); Glucose 92 mg/dL (74-106); Potassium 3.9 mmol/L (3.5-5.1); Sodium 144 mmol/L (136-145); Total Protein 7.4 g/dL (6.4-8.2)
[2024-08-01 10:58] LABS: Globulin 3.7 g/dL
== END 2024-08-01 09:23 | disposition home or self-care (01) ==
LOC: LAB 09:27
PROVIDERS: Visit Provider Registered Nurse
DX: M05.79 Rheumatoid arthritis with rheumatoid factor of multiple sites without organ or systems involvement (principal); M19.91 Primary osteoarthritis, unspecified site; Z79.899 Other long term (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 therapy
CPT/HCPCS: 36415; 80053; 85025; 85652

== ENCOUNTER 2025-04-19 06:48 | Outpatient (OUT) | payer MEDICARE, OTHER, SELFPAY ==
--- OUTSIDE RECORDS SUMMARY | 2025-04-19 06:55 | XMS_ITS | CCD ---
Author Organization [facility] Care Team Providers Care Senior Payroll Administrator Name Role Phone Shakeel Abbott MD Primary [...] Unavailable Shakeel Abbott MD Primary Care Provider [phone] SCAR, SHAKEEL Referring Unavailable SCAR, SHAKEEL Primary Care Unavailable SCAR, SHAKEEL Referring Unavailable SCAR, SHAKEEL Primary Care Unavailable Kash Person MD Primary Care Provider Shakeel Abbott MD Primary Care Provider Vy YEUNG Lena Unavailable [phone] SCAR, SHAKEEL Attending Unavailable SCAR, SHAKEEL Primary Care Unavailable SCAR, SHAKEEL Referring Unavailable SCAR, SHAKEEL Primary Care Unavailable SCAR, SHAKEEL Referring Unavailable SCAR, SHAKEEL Primary Care Unavailable SCAR, SHAKEEL Referring Unavailable SCAR, SHAKEEL Primary Care Unavailable SCAR, SHAKEEL Primary Care Unavailable Medications Current Medications Medication Drug Class(es) Dates Sig (Normalized) Sig (Original) ALPRAZolam 0.25 mg oral tablet (13 sources) Benzodiazepine Start: 12-30-2024 End: 06-28-2025 take 1 tablet by mouth once daily as needed ALPRAZolam (XANAX) 0.25 mg tablet Indications: SHYLA (generalized anxiety disorder) Take 1 tablet by mouth once daily as needed for up to 180 days. Not taking 3/30/21 10 tablet 12/30/2024 06/28/2025 Active Start: 12-28-2023 End: 06-25-2024 take 1 tablet [...] taking 12/25/20 amLODIPine 5 mg oral tablet (20 sources) Dihydropyridine Calcium Channel Naz Start: End: take 1 tablet by mouth once daily amLODIPine (NORVASC) 5 mg tablet Indications: Hypertension, essential TAKE 1 TABLET BY MOUTH EVERY DAY 90 tablet 3 12/26/2024 Active Start: 02-20-2021 End: 12-17-2021 take 1 tablet by mouth once daily amLODIPine (NORVASC) 5 mg tablet Take 1 tablet by mouth once daily. 30 tablet 11 02/20/2021 12/17/2021 Discontinued Comment on above: TAKE 1 TABLET BY MARLON TH EVERY DAY Take 1 tablet by marlon th once daily. hydroCHLOROthiazide 12.5 mg / lisinopril 20 mg oral tablet (20 sources) Thiazide Diuretic, Angiotensin Converting Enzyme Inhibitor Start: End: take 1 tablet by mouth once daily lisinopril-hydroCHL OROthiazide (ZESTORETIC) 20-12.5 mg per tablet Indications: Hypertension, essential Take 1 tablet by mouth once daily. 90 tablet 3 12/30/2024 Active Comment on above: Take 1 tablet by marlon th once daily. Take one(1) tablet d aily. take 1 tablet by marlon th every day hydroxychloroquine sulfate 200 mg oral tablet (18 sources) Antimalarial, Antirheumatic Agent Start: PLAQUENIL 200 MG TABLET one tablet two times daily 0 11/07/2004 Active Comment on above: one tablet two times daily microencapsulated potassium chloride 20 meq extended release oral tablet (8 sources) Start: 024 End: take 1 tablet by mouth once daily potassium chloride ER (KLOR-CON M20) 20 mEq tablet Indications: Hypokalemia Take 1 tablet by mouth once daily. 90 tablet 3 12/30/2024 Active rosuvastatin calcium 40 mg oral tablet (19 sources) HMG-CoA Reductase Inhibitor Start: 023 End: take 1 tablet by mouth once daily rosuvastatin (CRESTOR) 40 mg tablet Indications: Hyperlipidemia, mixed Take 1 tablet by mouth once daily. 90 tablet 3 12/30/2024 Active Start: 02-21-2021 End: 02-17-2022 take 1 [...] Active Problems Problem Classification Problem Date Documented Da te Episodic/Chronic Anxiety disorders (18 sources) Generalized anxiety disorder; Translations: [Generalized anxiety disorder] Onset: 03-24-2022 Chronic Diabetes mellitus without complication (2 sources) Hyperglycemia; Translations: [Hyperglycemia, unspecified] Onset: 12-30-2024 12-30-2024 Episodic Disorders of lipid metabolism (20 sources) Mixed hyperlipidemia; Translations: [Mixed hyperlipidemia] Onset: 02-20-2021 02-20-2021 Chronic Essential hypertension (20 sources) Essential hypertension; Translations: [Essential (primary) hypertension] Onset: 02-20-2021 Chronic Fluid and electrolyte disorders (4 sources) Hypokalemia; Translations: [Hypokalemia] Onset: 12-30-2024 04-18-2024 Episodic Osteoarthritis (1 source) Primary osteoarthritis, unspecified site; Translations: [PRIMARY OSTEOARTHRITIS UNS SITE] Onset: 11-24-2022 Chronic Other aftercare (1 source) Other joint terminal attack controller (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 therapy; Translations: [OTH LONGTERM CURRENT DRUG THERAPY] Onset: 11-24-2022 Episodic Other bone disease and musculoskeletal deformities (1 source) Osteopenia; Translations: [Other specified disorders of bone density and structure, unspecified site] 12-30-2024 Episodic Other nutritional; endocrine; and metabolic disorders (1 source) Hypercalcemia; Translations: [Hypercalcemia] 12-28-2023 Chronic Residual codes; unclassified (3 sources) Postmenopausal state; Translations: [Asymptomatic menopausal state] 04-28-2023 Episodic Residual codes; unclassified (1 source) Asymptomatic menopausal state; Translations: [Asymptomatic postmenopausal status] Onset: 04-28-2023 Episodic Rheumatoid arthritis and related disease (20 sources) Seronegative rheumatoid arthritis; Translations: [Rheumatoid arthritis without rheumatoid factor, unspecified site] Onset: 02-20-2021 02-20-2021 Chronic Unclassified (2 sources) Patient encounter status 12-30-2024 Past or Other Problems Problem Classification Problem Date Documented Da te Episodic/Chronic Cancer of breast (13 sources) Malignant neoplasm of female breast; Translations: [Malignant neoplasm of unspecified site of unspecified female breast] Onset: 11-07-2004 Resolved: 03-27-2008 11-07-2004 Chronic Cancer of breast (8 sources) History of malignant neoplasm of breast; Translations: [Personal history of malignant neoplasm of breast] Onset: 11-07-2004 12-28-2023 Episodic Heart valve disorders (18 sources) Heart murmur; Translations: [Cardiac murmur, unspecified] Onset: 02-20-2021 02-20-2021 Episodic Other screening for suspected conditions (not mental disorders or infectious disease) (13 sources) Patient encounter status; Translations: [Encounter for other screening for malignant neoplasm of breast] Onset: 04-28-2023 Episodic Unclassified (4 sources) Malignant tumor of breast ; Translations: [Malignant neoplasm of female breast] Onset: 11-15-2004 Resolved: 03-27-2008 04-07-2024 Results Test Name Value Interpretation Reference Range Facility Basic metabolic 2000 panelon 12-30-2024 Anion gap [Moles/Vol] 5 mmol/L Low 8 - 15 mmol/L [facility] Calcium [Mass/Vol] 10 mg/dL 8.5 - 10. 2 mg/dL [facility] Chloride [Moles/Vol] 105 mmol/L 98 - 107 mmol/L [facility] CO2 [Moles/Vol] 32 mmol/L High 22 - 30 mmol/L [facility] Creatinine [Mass/Vol] 0.63 mg/dL 0.58 - 0.96 mg/dL [facility] GFR/1.73 sq M.predicted among non-blacks MDRD (S/P/Bld) [Vol rate/Area] 96 mL/min/{1.73_m2} - PINF [facility] Comment on above: Estimated Glomerular Filtration Rate (eGFR) is calculated using the 2020 CKD-EPI creatinine equation. This equation utilizes serum creatinine, sex, and age as parameters. The creatinine assay has traceable calibration to isotope dilution-mass spectrometry. Refer to KDIGO guidelines for clinical interpretation. In patients with unstable renal function, e.g. those with acute kidney injury, the eGFR may not accurately reflect actual GFR. Glucose [Mass/Vol] 102 mg/dL High 74 - 99 mg/dL [facility] Comment on above: The [place] Diabete s Association (ADA) provides guidance for cutoff values [...] Standards of Medical Care in Diabetes 2016, [place] Diabetes Association. Diabetes Care. 2016.39(Suppl 1). Interpretation and review of laboratory results Abnormal [facility] Potassium [Moles/Vol] 3.4 mmol/L Low 3.7 - 5.1 mmol/L [facility] Sodium [Moles/Vol] 142 mmol/L 136 - 144 mmol/L [facility] Urea nitrogen [Mass/Vol] 13 mg/dL 7 - 21 mg/dL [facility] Anion gap [Moles/Vol] 5 mmol/L Low 8-15 [facility] Comment on above: Order Comment: Speci men Type: BLOOD SPECIMEN Ordering Facility: [facility] Address: [address] [place] [address] Performed By: #### 2 4321-2 #### [facility] CLIA [id number] [address] [place] [address] [place] Calcium [Mass/Vol] 10.0 mg/dL Normal 8.5-10.2 [facility] Comment on above: Order Comment: Speci men Type: BLOOD SPECIMEN Ordering Facility: [facility] Address: [address] [place] [address] Performed By: #### 2 4321-2 #### [facility] CLIA [id number] [address] [place] [address] [place] Chloride [Moles/Vol] 105 mmol/L Normal 98-107 [facility] Comment on above: Order Comment: Speci men Type: BLOOD SPECIMEN Ordering Facility: [facility] Address: [address] [place] [address] Performed By: #### 2 4321-2 #### [facility] CLIA [id number] [address] [place] [address] [place] CO2 [Moles/Vol] 32 mmol/L High 22-30 [facility] Comment on above: Order Comment: Speci men Type: BLOOD SPECIMEN Ordering Facility: [facility] Address: [address] [place] [address] Performed By: #### 2 4321-2 #### [facility] CLIA [id number] [address] [place] [address] [place] Creatinine [Mass/Vol] 0.63 mg/dL Normal 0.58-0.96 [facility] Comment on above: Order Comment: Specadan men Type: BLOOD SPECIMEN Ordering Facility: [facility] Address: [address] [place] [address] Performed By: #### 2 4321-2 #### [facility] CLIA [id number] [address] [place] [address] [place] Creatinine and Glomerular filtration rate.predicted panel (S/P/Bld) 96 mL/min/1.73m??? Normal >=60 [facility] Comment on above: Order Comment: Eric men Type: BLOOD SPECIMEN Ordering Facility: [facility] Address: [address] [place] [address] Result Comment: Ambar mated Glomerular Filtration Rate [...] actual GFR. Performed By: #### 2 4321-2 #### [facility] CLIA [id number] [address] [place] [address] [place] Glucose [Mass/Vol] 102 mg/dL High 74-99 [facility] Comment on above: Order Comment: Speci men Type: BLOOD SPECIMEN Ordering Facility: [facility] Address: [address] [place] [address] Result Comment: The [place] Diabetes Association (ADA) provides guidance for cutoff [...] Standards of Medical Care in Diabetes 2016, [place] Diabetes Association. Diabetes Care. 2016.39(Suppl 1). Performed By: #### 2 4321-2 #### [facility] CLIA [id number] [address] [place] [address] [place] Potassium [Moles/Vol] 3.4 mmol/L Low 3.7-5.1 [facility] Comment on above: Order Comment: Eric montez Type: BLOOD SPECIMEN Ordering Facility: [facility] Address: [address] [place] [address] Performed By: #### 2 4321-2 #### [facility] CLIA [id number] [address] [place] [address] [place] Sodium [Moles/Vol] 142 mmol/L Normal 136-144 [facility] Comment on above: Order Comment: Eric montez Type: BLOOD SPECIMEN Ordering Facility: [facility] Address: [address] [place] [address] Performed By: #### 2 4321-2 #### [facility] CLIA [id number] [address] [place] [address] [place] Urea nitrogen [Mass/Vol] 13 mg/dL Normal 7-21 [facility] Comment on above: Order Comment: Eric montez Type: BLOOD SPECIMEN Ordering Facility: [facility] Address: [address] [place] [address] Performed By: #### 2 4321-2 #### [facility] CLIA [id number] [address] [place] [address] [place] [facility] CNOVon 12-30-2024 CNOV Office Visit (FAMPLN ) MARY DEMPSEY ([id number]) 1955 F Date Time Provider Department 12/30/24 10:00 AM SHAKEEL ABBOTT During your visit today, we recorded the following information about you: Pulse Blood pressure Weight 84/minute 184/92 73.4 kg Shakeel Abbott MD 12/30/2024 10:48 AM Signed Mary Boogie Ke is a 69 year old female here for a Medicare wellness visit. Medicare Health Risk Assessment General Health Very good Exercise: Minutes/Day 60 min walks Exercise: Days/Week 5 days Alcohol: Daily Use Never Alcohol: Drinks/Day Patient does not drink Alcohol: 6 or more drinks Never Feel off balance No Concerns: Teeth/Dentures No Concerns: Sexual function No Troubled by feelings None of the above Frequency: Eating healthy diet Nearly every day ADLs requiring help None of the above Safety precautions in home/vehicle Yes Smoke, vape, chews tobacco No Difficulty hearing No Difficulty seeing No Current Providers Specialists: I have reviewed specialist-related care of the patient in the medical record. Medical/Family history review Reviewed and updated problem list, medical/surgical/fami ly/social history, medications, and allergies. Opioid use review Opioid Medications (last 90 days) No data to display Anxiety/Depression screening PHQ-9 Score: 0 . SHYLA-7 Score: 0 . Recommendation: no further intervention at this time Cognitive screening Mini Cog Score: 5 Cognitive screening reviewed and No further action needed (score 3-5). Functional Observation Was the patient's Timed Up AND Go test unsteady or >= 12 seconds? No Advance Care Planning Surrogate decision maker and/or advance care plan documented Measurements BP 184/92 (BP Site: Right Arm, BP Position: Sitting, BP Cuff Size: Regular Adult) Pulse 84 Wt 73.4 kg (161 lb 13.1 oz) SpO2 100% BMI 28.32 kg/m? Vision Screening: Follows with optometry/ophthalmolo gy Assessment/Plan Medicare annual wellness visit, subsequent (Z00.00) - Counseled on healthy diet and regular exercise - Fall avoidance information provided - Personalized prevention plan provided Additional Concerns The following concerns were also discussed with the patient: The patient consented to the use of ambient AI software for draft documentation of the visit consistent with [facility]?s Notice of Privacy Practices. Annual Wellness Exam: - No major changes or concerns over the past year. - No current memory concerns. - Up to date with dental and eye care. - No abnormal moles or rashes. - No abdominal pain or changes in stool habits. - No concerns with mood; depression and anxiety screenings were normal. - Advanced directives in place; daughter Cleo is healthcare power of deputy attorney general. - Mammogram in April was normal. - Bone density scan in 2022 showed osteopenia. - Exercises 5 days a week. - Diet is improving; does not consume alcohol or smoke. - Enjoys spending time with grandchildren and attending their sports events. - [place] to travel out west; requests [employer] for flying. Hypertension: - Home blood pressure readings are consistently normotensive - Last reading this morning was 124/83 mmHg. - Takes lisinopril-hydrochlor othiazide 20/12.5 mg and amlodipine 5 mg daily. - Occasionally experiences elevated blood pressure readings at medical appointments. Hyperlipidemia: - Takes rosuvastatin 40 mg daily; denies missing doses. - Recent LDL was 120 mg/dL, slightly higher than last year's 112 mg/dL. - Initial cholesterol levels were over 300 mg/dL before starting medication. Hypokalemia: - Takes potassium supplements but not consistently due to stomach upset. - Recent potassium level was slightly low. Ureteritis: - Managed with Plaquenil for years with good control. Breast Cancer: - Celebrating 20 years since diagnosis. - Mammogram in April was normal. Head: (-) headache Gastrointestinal: (-) abdominal pain, (-) changes in stool habits Skin: (-) rashes or suspicious lesions Neurological: (-) dizziness, (-) memory problems Psychiatric: (-) depression, (-) anxiety Labs: - Lipid Panel: LDL 120 mg/dL (previously 112 mg/dL), total cholesterol within normal limits - Kidney function tests: Normal renal function, potassium slightly low Imaging: - (2022) Bone Density: Osteopenia - (April) Mammogram: Normal BP 184/92 (BP Site: Right Arm, BP Position: Sitting, BP Cuff Size: Regular Adult) Pulse 84 Wt 73.4 kg (161 lb 13.1 oz) SpO2 100% BMI 28.32 kg/m? GENERAL: NAD, alert and oriented. SKIN: Unremarkable, no rash or skin lesions. HEAD: Normocephalic. EYES: EOMI, conjunctiva clear. EARS: External ears normal, canals clear, TM's normal. NOSE/SINUSES: Nares normal. Septum midline. OROPHARYNX: Lips, mucosa, and tongue normal, good dentition. No oral lesions noted. NECK: Supple, no lymphadenopa (more content not included)... Normal [facility] HbA1c (Bld)on 12-30-2024 Average glucose Estimated from glycated hemoglobin (Bld) [Mass/Vol] 128 mg/dL [facility] Comment on above: eAG: (Estimated aver age glucose) is a calculated value from HgbA1c and is customer response representative of the average blood glucose level in the last 2-3 month period. HbA1c (Bld) [Mass fraction] 6.1 % High 4.3 - 5.6 % [facility] Comment on above: [place] Diabetes As sociation guidelines indicate that patients with HgbA1c in the range 5.7-6.4% are at increased risk for development of diabetes, and intervention by lifestyle modification may be beneficial. HgbA1c greater or equal to 6.5% is considered diagnostic of diabetes. Interpretation and review of laboratory results Abnormal [facility] Average glucose Estimated from glycated hemoglobin (Bld) [Mass/Vol] 128 mg/dL Normal [facility] Comment on above: Order Comment: Eric montez Type: BLOOD SPECIMEN Ordering Facility: [facility] Address: [address] [place] [address] Result Comment: eAG: (Estimated average glucose) is a calculated value from HgbA1c and is customer response representative of the average blood glucose level in the last 2-3 month period. Performed By: #### 5 5454-3 #### [facility] CLIA [id number] [address] [place] [address] [place] HbA1c (Bld) [Mass fraction] 6.1 % High 4.3-5.6 [facility] Comment on above: Order Comment: Eric montez Type: BLOOD SPECIMEN Ordering Facility: [facility] Address: [address] [place] [address] Result Comment: [place] Diabetes Association guidelines indicate that patients with HgbA1c in the range 5.7-6.4% are at increased risk for development of diabetes, and intervention by lifestyle modification may be beneficial. HgbA1c greater or equal to 6.5% is considered diagnostic of diabetes. Performed By: #### 5 5454-3 #### [facility] CLIA [id number] [address] [place] [address] [place] Lipid 1996 panelon 5 Cholesterol [Mass/Vol] 196 mg/dL Normal <200 [facility] Comment on above: Order Comment: Specadan montez Type: BLOOD SPECIMEN Ordering Facility: [facility] Address: [address] [place] [address] Result Comment: <200 mg/dL, Desirable 200-239 mg/dL, Borderline high >239 mg/dL, High Performed By: #### 2 4331-1 #### [facility] CLIA [id number] [address] [place] [address] LAB CLIA [id number] [address] [place] [address] Cholesterol in HDL [Mass/Vol] 58 mg/dL Normal >39 [facility] Comment on above: Order Comment: Eric montez Type: BLOOD SPECIMEN Ordering Facility: [facility] Address: [address] [place] [address] Result Comment: 40-5 9 mg/dL, Acceptable >59 mg/dL, High: Negative risk factor for coronary heart disease <40 mg/dL, Low: Positive risk factor for coronary heart disease Performed By: #### 2 4331-1 #### [facility] CLIA [id number] [address] [place], [place] [id number] [facility] CLIA [id number] [address] [place] [address] Cholesterol in LDL [Mass/Vol] 120 mg/dL High <100 [facility] Comment on above: Order Comment: Eric montez Type: BLOOD SPECIMEN Ordering Facility: [facility] Address: [address] [place] [address] Result Comment: <100 mg/dL, Optimal 100-129 mg/dL, Near optimal/above optimal 130-159 mg/dL, Borderline high 160-189 mg/dL, High >189 mg/dL, Very high Secondary prevention optimal LDL Cholesterol levels are recommended to be < 70 mg/dL Performed By: #### 2 4331-1 #### [facility] CLIA [id number] [address] [place] [address] LAB CLIA [id number] [address] [place] [address] Cholesterol in LDL/Cholesterol in HDL [Mass ratio] 2.07 {ratio} Normal <2.54 [facility] Comment on above: Order Comment: Speci men Type: BLOOD SPECIMEN Ordering Facility: [facility] Address: [address] [place] [address] Result Comment: Refe rence: 1. National Cholesterol Education Program ATP III Guideline At-A-Glance Quick Desk Reference: National Heart, Lung, and Blood [place]. National Institutes of Health. 2001: NIH Publication No. 01-3305. 2. An International Atherosclerosis Society position paper: global recommendations for the management of dyslipidemia: executive summary, Atherosclerosis. 2014: 232(2):410-413. Performed By: #### 2 4331-1 #### [facility] CLIA [id number] [address] [place] [address] LAB CLIA [id number] [address] [place] [address] Cholesterol in VLDL [Mass/Vol] 18 mg/dL Normal <30 [facility] Comment on above: Order Comment: Speci men Type: BLOOD SPECIMEN Ordering Facility: [facility] Address: [address] [place] [address] Performed By: #### 2 4331-1 #### [facility] CLIA [id number] [address] [place] [address] LAB CLIA [id number] [address] [place] [address] Cholesterol non HDL [Mass/Vol] 138 mg/dL High <130 [facility] Comment on above: Order Comment: Speci men Type: BLOOD SPECIMEN Ordering Facility: [facility] Address: [address] [place], [place] [id number] Result Comment: <130 mg/dL, Optimal 130-159 mg/dL, Near optimal/above optimal 160-189 mg/dL, Borderline high 190-219 mg/dL, High >219 mg/dL, Very high Secondary prevention optimal non HDL Cholesterol levels are recommended to be <100 mg/dL Performed By: #### 2 4331-1 #### [facility] CLIA [id number] [address] [place] [address] LAB CLIA [id number] [address] [place] [address] Cholesterol.total/C holesterol in HDL [Mass ratio] 3.38 {ratio} Normal <5.10 [facility] Comment on above: Order Comment: Speci men Type: BLOOD SPECIMEN Ordering Facility: [facility] Address: [address] [place] [address] Performed By: #### 2 4331-1 #### [facility] CLIA [id number] [address] [place] [address] LAB CLIA [id number] [address] [place] [address] FASTING TIME 12 hrs Normal [facility] Comment on above: Order Comment: Speci men Type: BLOOD SPECIMEN Ordering Facility: [facility] Address: [address] [place], [place] [address] Performed By: #### 2 4331-1 #### [facility] CLIA [id number] [address] [place], [place] [id number] [facility] CLIA [id number] [address] [place] [address] Triglyceride [Mass/Vol] 91 mg/dL Normal <150 [facility] Comment on above: Order Comment: Speci men Type: BLOOD SPECIMEN Ordering Facility: [facility] Address: [address] [place] [address] Result Comment: <150 mg/dL, Normal 150-199 mg/dL, Borderline high 200-499 mg/dL, High >499 mg/dL, Very high Performed By: #### 2 4331-1 #### [facility] CLIA [id number] [address] [place] [address] [place] [id number] [facility] CLIA [id number] [address] [place] [address] [facility] 05-12-2024 [facility] HNO ID: [id number] Author: COORDINATOR, MAMMOGRAPHY, ? Service: ? Author Type: Physician Type: Letter Filed: 05/12/2024 19:03 Note Text: May 13, 2024 PID: [id number] Mary Dempsey [address] [place] [id number] Dear Ms. Dempsey, We are pleased to [...] report will be kept on file at [facility] as part of your permanent medical record and are available for your continuing care. Thank you for allowing us to help in meeting your health care needs. Sincerely, Dr. Lozano Interpreting Radiologist [facility] (Normal over 40) Normal [facility] NOÉ SCREENING W TOMOon 05-11 NOÉ SCREENING W MANDA * * *Final Report* * * DATE OF EXAM: May 11 2024 11:39AM LNW 0582 - NOÉ SCREENING W MANDA / PROCEDURE REASON: Encounter for screening mammogram for malignant neoplasm of breast * * * * Physician Interpretation * * * * RESULT: #[id number] - NOÉ SCREENING W MANDA BILATERAL DIGITAL [...] dated: 04/28/2023 mammogram, 04/30/2022 mammogram - [facility], 09/18/2021 [facility]ogram - [facility], 03/14/2021 mammogram - [facility], and 02/20/2021 mammogram - [facility]. The breasts are heterogeneously dense, which may obscure small masses. There are benign post operative findings in the right breast. No significant masses, calcifications, or other findings are seen in either breast. There has been no significant interval change. IMPRESSION: BENIGN There is no mammographic evidence of malignancy. A 1 year screening mammogram is recommended. Carlo lee/vitor:05/12/2024 19:03:19 Aws Solution Architect(s): LOVELY Hudson)(Bernie), [facility] letter sent: Normal over 40 Mammogram [...] Health, Family Medicine, and Medical/Surgical Oncology, the [facility] has carefully reviewed the data and reached [...] their providers when to stop screening mammograms. Framing Mill Operator Helper: Vitor Transcribe Date/Time: May 11 2024 11:26A Dictated by: CARLO LOZANO MD This examination was interpreted and the report reviewed and electronically signed by: CARLO LOZANO MD on May 12 2024 7:03PM EST [id number] N Normal [facility] 25(OH)D3 SerPl-ncon 2023 25-hydroxyvitamin D3 [Mass/Vol] 53.9 ng/mL Normal 31.0-80.0 [facility] Comment on above: Order Comment: Eric montez Type: BLOOD SPECIMEN Ordering Facility: [facility] Address: [address] [place] [address] Result Comment: Clas sification of 25 [place] Vitamin D status: Deficiency/Insufficiency: < or = 30 ng/ml. Sufficiency/Optimal Levels: 31-80 ng/mL Toxicity: > 100 ng/mL. Test performed by chemiluminescent immunoassay. Performed By: #### 1 989-3 #### [facility] CLIA [id number] [address] [place] [address] [place] Basic metabolic 2000 panelon 04-04-2024 Anion gap [Moles/Vol] 11 mmol/L Normal 8-15 [facility] Comment on above: Order Comment: Eric montez Type: BLOOD SPECIMEN Ordering Facility: [facility] Address: [address] [place] [address] Performed By: #### 2 4321-2 #### [facility] CLIA [id number] [address] [place] [address] Calcium [Mass/Vol] 10.2 mg/dL Normal 8.5-10.2 [facility] Comment on above: Order Comment: Eric montez Type: BLOOD SPECIMEN Ordering Facility: [facility] Address: [address] [place] [address] Performed By: #### 2 4321-2 #### [facility] CLIA [id number] [address] [place] [address] Chloride [Moles/Vol] 103 mmol/L Normal 98-107 [facility] Comment on above: Order Comment: Speci men Type: BLOOD SPECIMEN Ordering Facility: [facility] Address: [address] [place] [address] Performed By: #### 2 4321-2 #### [facility] CLIA [id number] [address] [place] [address] CO2 [Moles/Vol] 28 mmol/L Normal 22-30 [facility] Comment on above: Order Comment: Speci men Type: BLOOD SPECIMEN Ordering Facility: [facility] Address: [address] [place] [address] Performed By: #### 2 4321-2 #### [facility] CLIA [id number] [address] [place] [address] Creatinine [Mass/Vol] 0.74 mg/dL Normal 0.58-0.96 [facility] Comment on above: Order Comment: Speci men Type: BLOOD SPECIMEN Ordering Facility: [facility] Address: [address] [place] [address] Performed By: #### 2 4321-2 #### [facility] CLIA [id number] [address] [place] [address] Creatinine and Glomerular filtration rate.predicted panel (S/P/Bld) 88 mL/min/1.73m??? Normal >=60 [facility] Comment on above: Order Comment: Speci men Type: BLOOD SPECIMEN Ordering Facility: [facility] Address: [address] [place] [address] Result Comment: Ambar mated Glomerular Filtration Rate [...] actual GFR. Performed By: #### 2 4321-2 #### [facility] CLIA [id number] [address] [place] [address] Glucose [Mass/Vol] 124 mg/dL High 74-99 [facility] Comment on above: Order Comment: Eric montez Type: BLOOD SPECIMEN Ordering Facility: [facility] Address: [address] [place], [place] [id number] Result Comment: The [place] Diabetes Association (ADA) provides guidance for cutoff [...] Standards of Medical Care in Diabetes 2016, [place] [employer] Association. Diabetes Care. 2016.39(Suppl 1). Performed By: #### 2 4321-2 #### [facility] CLIA [id number] [address] [place] [address] Potassium [Moles/Vol] 3.5 mmol/L Low 3.7-5.1 [facility] Comment on above: Order Comment: Eric montez Type: BLOOD SPECIMEN Ordering Facility: [facility] Address: [address] [place], [place] [id number] Performed By: #### 2 4321-2 #### [facility] CLIA [id number] [address] [place] [address] Sodium [Moles/Vol] 142 mmol/L Normal 136-144 [facility] Comment on above: Order Comment: Eric montez Type: BLOOD SPECIMEN Ordering Facility: [facility] Address: [address] [place], [place] [address] Performed By: #### 2 4321-2 #### [facility] CLIA [id number] [address] [place] [address] Urea nitrogen [Mass/Vol] 12 mg/dL Normal 7-21 [facility] Comment on above: Order Comment: Speci men Type: BLOOD SPECIMEN Ordering Facility: [facility] Address: [address] [place] [address] Performed By: #### 2 4321-2 #### [facility] CLIA [id number] [address] [place] [address] Calcium.ionized [Moles/Vol]o n 04-04-2024 Calcium.ionized (Bld) [Mass/Vol] 1.27 mmol/L Normal 1.08-1.30 [facility] Comment on above: Order Comment: Speci men Type: BLOOD SPECIMEN Ordering Facility: [facility] Address: [address] [place] [address] Performed By: #### 1 995-0 #### [facility] CLIA [id number] [address] [place] [address] [place] Calcium.ionized adjusted to pH 7.4 (Bld) [Moles/Vol] 1.26 mmol/L Normal 1.08-1.30 [facility] Comment on above: Order Comment: Speci men Type: BLOOD SPECIMEN Ordering Facility: [facility] Address: [address] [place] [address] Performed By: #### 1 995-0 #### [facility] CLIA [id number] [address] [place] [address] [place] [facility] Par[facility]yrin.intact [Mass/Vol] 49 pg/mL Normal 15-65 [facility] Comment on above: Order Comment: Speci men Type: BLOOD SPECIMEN Ordering Facility: [facility] Address: [address] [place] [address] Performed By: #### 2 731-8 #### [facility] CLIA [id number] [address] [place] [address] [place] [facility]CO[facility] 04-29-2023 [facility] HNO ID: [id number] Author: Coordinator, Mammography Service: ? Author Type: Physician Type: Letter Filed: 04/30/2023 11:34 PM Note Text: [facility] [address] [place] [address] April 29, 2023 PID: [id number] Mary Dempsey [address] [place] [address] [place] [id number] Dear Ms. Dempsye, We are pleased to inform you that [...] report will be kept on file at [facility] as part of your permanent medical record and are available for your continuing care. Thank you for allowing us to help in meeting your health care needs. Sincerely, Dr. Sam Interpreting Radiologist [facility] (Normal over 40) Normal [facility] BD DXA - AXIAL SKELETONon BD [...] INDICATION/HISTORY: Postmenopausal, screening for osteoporosis TECHNIQUE: DXA Bowbells-Pressy QDR 4500C v.11.2 examination was performed on [...] is a trademark of the [employer] [facility] Metabolic Bone Disease, a WHO Collaborating [place]. This applies to men over 50 and [...] at high risk for accelerated bone loss). Framing Mill Operator Helper: PSCB Transcribe Date/Time: Apr 29 2023 7:40A Dictated by : NIKOLAS SILVEIRA MD This examination was interpreted and the report reviewed and electronically signed by: NIKOLAS SILVEIRA MD on Apr 29 2023 7:41AM EST [id number] N Normal [facility] NOÉ SCREENING W TOMOon 04-28 NOÉ SCREENING W MANDA * * *Final Report* * * DATE OF EXAM: Apr 28 2023 3:14PM LDW 0582 - NOÉ SCREENING W MANDA / PROCEDURE REASON: Encounter for screening mammogram for malignant neoplasm of breast * * * * Physician Interpretation * * * * #[id number] - NOÉ SCREENING W MANDA BILATERAL DIGITAL [...] to exams dated: 04/30/2022 mammogram - [facility], 09/18/2021 mammogram - [facility], 03/14/2021 mammogram - [facility], 02/20/2021 mammogram - [facility], 07/17/2014 mammogram, and 07/15/2013 mammogram - [...] screening mammogram is recommended. Юлия faulkner/vitor:04/29/2023 12:22:18 Aws Solution Architect(s): Reji Bliss)(Bernie), [facility] letter sent: Normal over 40 Mammogram BI-RADS: [...] Health, Family Medicine, and Medical/Surgical Oncology, the [facility] has carefully reviewed the data and reached [...] their providers when to stop screening mammograms. Framing Mill Operator Helper: Vitor Transcribe Date/Time: Apr 28 2023 2:49P Dictated by : ЮЛИЯ SAM MD This examination was interpreted and the report reviewed and electronically signed by: ЮЛИЯ SAM MD on Apr 29 2023 12:22PM EST [id number] Normal [facility] CBC AUTO DIFFon 11-20-2022 BASO # 0.0 103/ul Normal 0.0-0.1 [facility] Comment on above: Performed By: #### C BC #### [facility] [address] [address] [address] Pietro Tam Basophils/100 WBC (Bld) 0.5 % Normal 0.2-2.0 [facility] Comment on above: Performed By: #### C BC #### [facility] [address] [address] [address] Pietro Tam EO # 0.1 103/ul Normal 0.0-0.7 [facility] Comment on above: Performed By: #### C BC #### [facility] [address] [address] [address] Pietro Tam Eosinophils/100 WBC (Bld) 1.2 % Normal 0.9-7.0 [facility] Comment on above: Performed By: #### C BC #### [facility] [address] [place] [address] Dr. Pietro Tam Erythrocyte distribution width (RBC) [Ratio] 13.0 % Normal 11.0-15.0 [facility] Comment on above: Performed By: #### C BC #### [facility] [address] [place] [address] Dr. Pietro Tam Hematocrit (Bld) [Volume fraction] 39.5 % Normal 36.0-48.0 [facility] Comment on above: Performed By: #### C BC #### [facility] [address] [place] [address] Dr. Pietro Tam Hemoglobin (Bld) [Mass/Vol] 13.2 g/dL Normal 12.0-16.0 [facility] Comment on above: Performed By: #### C BC #### [facility] [address] [place] [address] Dr. Pietro Tam IG # 0.03 10e3/ul Normal 0.00-0.03 [facility] Comment on above: Performed By: #### C BC #### [facility] [address] [place] [address] Dr. Pietro Tam IG % 0.4 % Normal 0.0-0.5 [facility] Comment on above: Performed By: #### C BC #### [facility] [address] [place] [address] Dr. Pietro Tam LYMPH # 1.8 103/ul Normal 1.2-3.8 [facility] Comment on above: Performed By: #### C BC #### [facility] [address] [place] [address] Dr. Pietro Tam Lymphocytes/100 WBC (Bld) 22.5 % Normal 20.5-60.0 [facility] Comment on above: Performed By: #### C BC #### [facility] [address] [place] [address] Dr. Pietro Tam MANUAL DIFF REQ NO Normal [facility] Comment on above: Performed By: #### C BC #### [facility] [address] [place] [address] Dr. Pietro Tam MCH (RBC) [Entitic mass] 27.7 pg Normal 26.7-34.0 [facility] Comment on above: Performed By: #### C BC #### [facility] [address] [place] [address] Dr. Pietro Tam MCHC (RBC) [Mass/Vol] 33.4 g/dL Normal 29.9-35.2 [facility] Comment on above: Performed By: #### C BC #### [facility] [address] [place] [address] Dr. Pietro Tam MCV (RBC) [Entitic vol] 83.0 fL Normal 81.0-99.0 [facility] Comment on above: Performed By: #### C BC #### [facility] [address] [place] [address] Dr. Pietro Tam MONO # 0.6 103/ul Normal 0.3-0.8 [facility] Comment on above: Performed By: #### C BC #### [facility] [address] [place] [address] Dr. Pietro Tam Monocytes/100 WBC (Bld) 7.3 % Normal 1.7-12.0 [facility] Comment on above: Performed By: #### C BC #### [facility] [address] [place] [address] Dr. Pietro Tam NEUT # 5.6 103/ul Normal 1.4-6.5 [facility] Comment on above: Performed By: #### C BC #### [facility] [address] [place] [address] Dr. Pietro Tam Neutrophils/100 WBC (Bld) 68.1 % Normal 43.0-75.0 [facility] Comment on above: Performed By: #### C BC #### [facility] [address] [place] [address] Dr. Pietro Tam Platelet mean volume (Bld) [Entitic vol] 8.9 fL Critically low 9.5-13.5 [facility] Comment on above: Performed By: #### C BC #### [facility] [address] [address] [address] Pietro Tam PLT 246 103/ul Normal 150-450 [facility] Comment on above: Performed By: #### C BC #### [facility] [address] [address] [address] Pietro Tam RBC 4.76 106/ul Normal 4.20-5.40 [facility] Comment on above: Performed By: #### C BC #### [facility] [address] [place] [address] Dr. Pietro Tam WBC 8.2 103/ul Normal 4.0-11.0 [facility] Comment on above: Performed By: #### C BC #### [facility] [address] [place] [address] Dr. Pietro Tam PROF 14(COMP METB)on 023 Albumin [Mass/Vol] 4.0 g/dL Normal 3.4-5.0 [facility] Comment on above: Performed By: #### C MP #### [facility] [address] [place] [address] Dr. Pietro Tam Albumin/Globulin [Mass ratio] 1.1 {ratio} Normal [facility] Comment on above: Performed By: #### C MP #### [facility] [address] [place] [address] Dr. Pietro Tam ALP [Catalytic activity/Vol] 75 U/L Normal 46-116 [facility] Comment on above: Performed By: #### C MP #### [facility] [address] [place] [address] Dr. Pietro Tam ALT [Catalytic activity/Vol] 55 U/L Normal 14-59 [facility] Comment on above: Performed By: #### C MP #### [facility] [address] [place] [address] Dr. Pietro Tam Anion gap [Moles/Vol] 9.3 mmol/L Normal [facility] Comment on above: Performed By: #### C MP #### [facility] [address] [address] [address] Pietro Tam AST [Catalytic activity/Vol] 43 U/L Critically high 15-37 [facility] Comment on above: Performed By: #### C MP #### [facility] [address] [address] [address] Pietro Tam Bilirubin [Mass/Vol] 0.5 mg/dL Normal 0.2-1.0 [facility] Comment on above: Performed By: #### C MP #### [facility] [address] [address] [address] Pietro Tam Calcium [Mass/Vol] 9.5 mg/dL Normal 8.5-10.1 [facility] Comment on above: Performed By: #### C MP #### [facility] [address] [place] [address] Dr. Pietro Tam Chloride [Moles/Vol] 105 mmol/L Normal 98-107 [facility] Comment on above: Performed By: #### C MP #### [facility] [address] [place] [address] Dr. Pietro Tam CO2 [Moles/Vol] 29.2 mmol/L Normal 21.0-32.0 [facility] Comment on above: Performed By: #### C MP #### [facility] [address] [place] [address] Dr. Pietro Tam Creatinine [Mass/Vol] 0.56 mg/dL Normal 0.55-1.02 [facility] Comment on above: Performed By: #### C MP #### [facility] [address] [place] [address] Dr. Pietro Tam EGFR-AF [place] >60 Normal >=60 [facility] Comment on above: Performed By: #### C MP #### [facility] [address] [place] [address] Dr. Pietro Tam EGFR-NON AF [place] >60 Normal >=60 [facility] Comment on above: Performed By: #### C MP #### [facility] [address] [place] [address] Dr. Pietro Tam Globulin (S) [Mass/Vol] 3.5 g/dL Normal [facility] Comment on above: Performed By: #### C MP #### [facility] [address] [address] [address] Pietro Tam Glucose [Mass/Vol] 87 mg/dL Normal 74-106 [facility] Comment on above: Performed By: #### C MP #### [facility] [address] [address] [address] Pietro Tam Potassium [Moles/Vol] 3.5 mmol/L Normal 3.5-5.1 [facility] Comment on above: Performed By: #### C MP #### [facility] [address] [address] [address] Pietro Tam Protein [Mass/Vol] 7.5 g/dL Normal 6.4-8.2 [facility] Comment on above: Performed By: #### C MP #### [facility] [address] [address] [address] Pietro Tam Sodium [Moles/Vol] 140 mmol/L Normal 136-145 [facility] Comment on above: Performed By: #### C MP #### [facility] [address] [address] [address] Pietro Tam Urea nitrogen [Mass/Vol] 15.0 mg/dL Normal 7.0-18.0 [facility] Comment on above: Performed By: #### C MP #### [facility] [address] [address] [address] Pietro Tam Urea nitrogen/Creatinine [Mass ratio] 26.8 mg/mg Normal [facility] Comment on above: Performed By: #### C MP #### [facility] [address] [address] [address] Pietro Tam SED RATE WESTERGRENon 2022 SED RATE 18 mm/hr Normal <=30 [facility] Comment on above: Performed By: #### S EDR #### [facility] [address] [address] [address] Pietro Tam CBC AUTO DIFFon 05-26-2022 BASO # 0.1 103/ul Normal 0.0-0.1 [facility] Comment on above: Performed By: #### C BC #### [facility] [address] [place] [address] Dr. Pietro Tam Basophils/100 WBC (Bld) 0.7 % Normal 0.2-2.0 [facility] Comment on above: Performed By: #### C BC #### [facility] [address] [place] [address] Dr. Pietro Tam EO # 0.1 103/ul Normal 0.0-0.7 [facility] Comment on above: Performed By: #### C BC #### [facility] [address] [place] [address] Dr. Pietro Tam Eosinophils/100 WBC (Bld) 1.3 % Normal 0.9-7.0 [facility] Comment on above: Performed By: #### C BC #### [facility] [address] [place] [address] Dr. Pietro Tam Erythrocyte distribution width (RBC) [Ratio] 13.1 % Normal 11.0-15.0 [facility] Comment on above: Performed By: #### C BC #### [facility] [address] [place] [address] Dr. Pietro Tam Hematocrit (Bld) [Volume fraction] 38.5 % Normal 36.0-48.0 [facility] Comment on above: Performed By: #### C BC #### [facility] [address] [place] [address] Dr. Pietro Tam Hemoglobin (Bld) [Mass/Vol] 12.9 g/dL Normal 12.0-16.0 [facility] Comment on above: Performed By: #### C BC #### [facility] [address] [place] [address] Dr. Pietro Tam IG # 0.01 10e3/ul Normal 0.00-0.03 [facility] Comment on above: Performed By: #### C BC #### [facility] [address] [place] [address] Dr. Pietro Tam IG % 0.1 % Normal 0.0-0.5 [facility] Comment on above: Performed By: #### C BC #### [facility] [address] [place] [address] Dr. Pietro Tam LYMPH # 1.6 103/ul Normal 1.2-3.8 [facility] Comment on above: Performed By: #### C BC #### [facility] [address] [place] [address] Dr. Pietro Tam Lymphocytes/100 WBC (Bld) 21.7 % Normal 20.5-60.0 [facility] Comment on above: Performed By: #### C BC #### [facility] [address] [place] [address] Dr. Pietro Tam MANUAL DIFF REQ NO Normal [facility] Comment on above: Performed By: #### C BC #### [facility] [address] [place] [address] Dr. Pietro Tam MCH (RBC) [Entitic mass] 28.1 pg Normal 26.7-34.0 [facility] Comment on above: Performed By: #### C BC #### [facility] [address] [place] [address] Dr. Pietro Tam MCHC (RBC) [Mass/Vol] 33.5 g/dL Normal 29.9-35.2 [facility] Comment on above: Performed By: #### C BC #### [facility] [address] [place] [address] Dr. Pietro Tam MCV (RBC) [Entitic vol] 83.9 fL Normal 81.0-99.0 [facility] Comment on above: Performed By: #### C BC #### [facility] [address] [place] [address] Dr. Pietro Tam MONO # 0.5 103/ul Normal 0.3-0.8 [facility] Comment on above: Performed By: #### C BC #### [facility] [address] [place] [address] Dr. Pietro Tam Monocytes/100 WBC (Bld) 6.5 % Normal 1.7-12.0 [facility] Comment on above: Performed By: #### C BC #### [facility] [address] [address] [address] Pietro Tam NEUT # 5.0 103/ul Normal 1.4-6.5 [facility] Comment on above: Performed By: #### C BC #### [facility] [address] [place] [address] Dr. Pietro Tam Neutrophils/100 WBC (Bld) 69.7 % Normal 43.0-75.0 [facility] Comment on above: Performed By: #### C BC #### [facility] [address] [place] [address] Dr. Pietro Tam Platelet mean volume (Bld) [Entitic vol] 8.5 fL Critically low 9.5-13.5 [facility] Comment on above: Performed By: #### C BC #### [facility] [address] [place] [address] Dr. Pietro Tam PLT 253 103/ul Normal 150-450 [facility] Comment on above: Performed By: #### C BC #### [facility] [address] [place] [address] Dr. Pietro Tam RBC 4.59 106/ul Normal 4.20-5.40 [facility] Comment on above: Performed By: #### C BC #### [facility] [address] [place] [address] Dr. Pietro Tam WBC 7.2 103/ul Normal 4.0-11.0 [facility] Comment on above: Performed By: #### C BC #### [facility] [address] [place] [address] Dr. Pietro Tam PROF 14(COMP METB)on 022 Albumin [Mass/Vol] 4.0 g/dL Normal 3.4-5.0 [facility] Comment on above: Performed By: #### C MP #### [facility] [address] [place] [address] Dr. Pietro Tam Albumin/Globulin [Mass ratio] 1.2 {ratio} Normal [facility] Comment on above: Performed By: #### C MP #### [facility] [address] [address] [address] Pietro Tam ALP [Catalytic activity/Vol] 71 U/L Normal 46-116 [facility] Comment on above: Performed By: #### C MP #### [facility] [address] [address] [address] Pietro Tam ALT [Catalytic activity/Vol] 40 U/L Normal 14-59 [facility] Comment on above: Performed By: #### C MP #### [facility] [address] [place] [address] Dr. Pietro Tam Anion gap [Moles/Vol] 12.2 mmol/L Normal [facility] Comment on above: Performed By: #### C MP #### [facility] [address] [place] [address] Dr. Pietro Tam AST [Catalytic activity/Vol] 31 U/L Normal 15-37 [facility] Comment on above: Performed By: #### C MP #### [facility] [address] [place] [address] Dr. Pietro Tam Bilirubin [Mass/Vol] 0.7 mg/dL Normal 0.2-1.0 [facility] Comment on above: Performed By: #### C MP #### [facility] [address] [place] [address] Dr. Pietro Tam Calcium [Mass/Vol] 9.0 mg/dL Normal 8.5-10.1 [facility] Comment on above: Performed By: #### C MP #### [facility] [address] [place] [address] Dr. Pietro Tam Chloride [Moles/Vol] 104 mmol/L Normal 98-107 [facility] Comment on above: Performed By: #### C MP #### [facility] [address] [place] [address] Dr. Pietro Tam CO2 [Moles/Vol] 29.4 mmol/L Normal 21.0-32.0 [facility] Comment on above: Performed By: #### C MP #### [facility] [address] [place] [address] Dr. Pietro Tam Creatinine [Mass/Vol] 0.68 mg/dL Normal 0.55-1.02 [facility] Comment on above: Performed By: #### C MP #### [facility] [address] [place] [address] Dr. Pietro Tam EGFR-AF [place] >60 Normal >=60 [facility] Comment on above: Performed By: #### C MP #### [facility] [address] [address] [address] Pietro Tam EGFR-NON AF [place] >60 Normal >=60 [facility] Comment on above: Performed By: #### C MP #### [facility] [address] [place] [address] Dr. Pietro Tam Globulin (S) [Mass/Vol] 3.3 g/dL Normal [facility] Comment on above: Performed By: #### C MP #### [facility] [address] [place] [address] Dr. Pietro Tam Glucose [Mass/Vol] 91 mg/dL Normal 74-106 [facility] Comment on above: Performed By: #### C MP #### [facility] [address] [place] [address] Dr. Pierto Tam Potassium [Moles/Vol] 3.6 mmol/L Normal 3.5-5.1 [facility] Comment on above: Performed By: #### C MP #### [facility] [address] [place] [address] Dr. Pietro Tam Protein [Mass/Vol] 7.3 g/dL Normal 6.4-8.2 [facility] Comment on above: Performed By: #### C MP #### [facility] [address] [place] [address] Dr. Pietro Tam Sodium [Moles/Vol] 142 mmol/L Normal 136-145 [facility] Comment on above: Performed By: #### C MP #### [facility] [address] [place] [address] Dr. Pietro Tam Urea nitrogen [Mass/Vol] 13.0 mg/dL Normal 7.0-18.0 [facility] Comment on above: Performed By: #### C MP #### [facility] [address] [place] [address] Dr. Pietro Tam Urea nitrogen/Creatinine [Mass ratio] 19.1 mg/mg Normal [facility] Comment on above: Performed By: #### C MP #### [facility] [address] [place] [address] Dr. Pietro Tam SED [facility] 2021 SED RATE 10 mm/hr Normal <=30 [facility] Comment on above: Performed By: #### S EDR #### [facility] [address] [place] [address] Dr. Pietro Tam Complete Blood Count with Au to Diffon 12-17-2021 Basophils (Bld) [#/Vol] 0.04 10*3/uL Normal 0.00-0.20 [facility] Comment on above: Performed By: #### E SR, CBCAD, CMP #### [facility] [address] [place], [place] [id number] Basophils/100 WBC (Bld) 0.5 % Normal [facility] Comment on above: Performed By: #### E SR, CBCAD, CMP #### [facility] [address] [place], [place] [id number] Eosinophils (Bld) [#/Vol] 0.07 10*3/uL Normal 0.02-0.50 [facility] Comment on above: Performed By: #### E SR, CBCAD, CMP #### [facility] [address] [place], [place] [id number] Eosinophils/100 WBC (Bld) 0.9 % Normal [facility] Comment on above: Performed By: #### E SR, CBCAD, CMP #### [facility] [address] [place], [place] [id number] Erythrocyte distribution width (RBC) [Ratio] 13.2 % Normal 11.0-15.0 [facility] Comment on above: Performed By: #### E , CBCAD, CMP #### [facility] [address] [place], [place] [id number] Hematocrit (Bld) [Volume fraction] 43.0 % Normal 35.0-47.0 [facility] Comment on above: Performed By: #### E , CBCAD, CMP #### [facility] [address] [place], [place] [id number] Hemoglobin (Bld) [Mass/Vol] 14.3 g/dL Normal 11.6-15.5 [facility] Comment on above: Performed By: #### E , CBCAD, CMP #### [facility] [address] [place], [place] [id number] Lymphocytes (Bld) [#/Vol] 1.5 10*3/uL Normal 0.9-3.9 [facility] Comment on above: Performed By: #### E , CBCAD, CMP #### [facility] [address] [place], [place] [id number] Lymphocytes/100 WBC (Bld) 19.6 % Normal [facility] Comment on above: Performed By: #### E , CBCAD, CMP #### [facility] [address] [place], [place] [id number] MCH (RBC) [Entitic mass] 28.3 pg Normal 27.0-33.0 [facility] Comment on above: Performed By: #### Keagan LANGFORD, CBCAD, CMP #### [facility] [address] [place], [place] [id number] MCHC (RBC) [Mass/Vol] 33.3 g/dL Normal 32.0-36.0 [facility] Occupational Therapist Comment on above: Performed By: #### E , CBCAD, CMP #### [facility] [address] [place], [place] [id number] MCV (RBC) [Entitic vol] 85 fL Normal 80-100 [facility] Comment on above: Performed By: #### E , CBCAD, CMP #### [facility] [address] [place], [place] [id number] Monocytes (Bld) [#/Vol] 0.5 10*3/uL Normal 0.2-0.9 [facility] Comment on above: Performed By: #### E , CBCAD, CMP #### [facility] [address] [place] [id number] Monocytes/100 WBC (Bld) 6.1 % Normal [facility] Comment on above: Performed By: #### E SR, CBCAD, CMP #### [facility] [address] [place], [place] [id number] Neutrophils (Bld) [#/Vol] 5.5 10*3/uL Normal 1.5-7.8 [facility] Comment on above: Performed By: #### E SR, CBCAD, CMP #### [facility] [address] [place], [place] [id number] Neutrophils/100 WBC (Bld) 72.8 % Normal [facility] Comment on above: Performed By: #### E SR, CBCAD, CMP #### [facility] [address] [place], [place] [id number] Platelet mean volume (Bld) [Entitic vol] 10.10 fL Normal 7.50-12.50 [facility] Comment on above: Performed By: #### E SR, CBCAD, CMP #### [facility] [address] [place], [place] [id number] Platelets (Bld) [#/Vol] 168 10*3/uL Normal 140-400 [facility] Comment on above: Performed By: #### E SR, CBCAD, CMP #### [facility] [address], [place] [id number] RBC (Bld) [#/Vol] 5.06 10*6/uL Normal 3.90-5.20 [facility] Comment on above: Performed By: #### E SR, CBCAD, CMP #### [facility] [address], [place] [id number] RDW-SD 41.1 fL Normal 37.0-50.0 [facility] Comment on above: Performed By: #### E SR, CBCAD, CMP #### [facility] [address] [place], [place] [id number] WBC (Bld) [#/Vol] 7.6 10*3/uL Normal 3.8-11.0 [facility] Comment on above: Performed By: #### E SR, CBCAD, CMP #### [facility] [address], [place] [id number] Comprehensive Metabolic Pane tova 12-17-2021 Albumin [Mass/Vol] 5.0 g/dL Normal 3.6-5.1 [facility] Comment on above: Performed By: #### E , CBCAD, CMP #### [facility] [address] [place], [place] [id number] Albumin/Globulin [Mass ratio] 2.2 {ratio} Normal 1.0-2.5 [facility] Comment on above: Performed By: #### E , CBCAD, CMP #### [facility] [address] [place], [place] [id number] ALP [Catalytic activity/Vol] 77 U/L Normal 35-119 [facility] Comment on above: Performed By: #### E , CBCAD, CMP #### [facility] [address] [place], [place] [id number] ALT [Catalytic activity/Vol] 34 U/L High 6-33 [facility] Comment on above: Result Comment: 08/28 Female reference range changed. Performed By: #### E , CBCDOREEN, CMP #### [facility] [address], [place] [id number] Anion gap [Moles/Vol] 15 mmol/L Normal 12-20 [facility] Comment on above: Result Comment: Effe ctive 10/03/2019 reference range changed. Performed By: #### E , CBCAD, CMP #### [facility] [address], [place] [id number] AST [Catalytic activity/Vol] 29 U/L Normal 9-34 [facility] Comment on above: Performed By: #### E , CBCAD, CMP #### [facility] [address], [place] [id number] Bilirubin [Mass/Vol] 0.48 mg/dL Normal 0.30-1.20 [facility] Comment on above: Performed By: #### E , CBCAD, CMP #### [facility] [address] [place], [place] [id number] BUN/CREA 27 Ratio High 6-22 [facility] Comment on above: Performed By: #### E SR, CBCAD, CMP #### [facility] [address] [place], [place] [id number] Calcium [Mass/Vol] 9.6 mg/dL Normal 8.6-10.2 [facility] Senior Occupational Therapist Comment on above: Performed By: #### E SR, CBCAD, CMP #### [facility] [address] [id number] Chloride [Moles/Vol] 106 mmol/L Normal 98-107 [facility] Comment on above: Performed By: #### E SR, CBCAD, CMP #### [facility] [address] [id number] CO2 [Moles/Vol] 26 mmol/L Normal 20-31 [facility] Comment on above: Performed By: #### E SR, CBCAD, CMP #### [facility] [address] [facility] [place] [id number] Creatinine [Mass/Vol] 0.6 mg/dL Normal 0.6-1.4 [facility] Comment on above: Performed By: #### E SR, CBCAD, CMP #### [facility] [address] [facility] [place] [id number] eGFRAA 129 mL/min/1.73m2 Normal >60 [facility] Comment on above: Performed By: #### E SR, CBCAD, CMP #### [facility] [address], [place] [id number] eGFRNAA 106 mL/min/1.73m2 Normal >60 [facility] Comment on above: Performed By: #### E SR, CBCAD, CMP #### [facility] [address] [place], [place] [id number] Globulin (S) [Mass/Vol] 2.3 g/dL Normal 1.9-3.7 [facility] Occupational Therapist Comment on above: Performed By: #### E SR, CBCAD, CMP #### [facility] [address] [place], [place] [id number] Glucose [Mass/Vol] 97 mg/dL Normal 65-99 [facility] Occupational Therapist Comment on above: Result Comment: For FASTING Glucose --- ADA reference ranges: Normal 65-99 mg/dl Prediabetes 100-125 Diabetes >/= 126 Performed By: #### Keagan LANGFORD CBCDOREEN, CMP #### [facility] [address] [place], [place] [id number] Potassium [Moles/Vol] 3.8 mmol/L Normal 3.5-5.5 [facility] Occupational Therapist Comment on above: Performed By: #### Keagan LANGFORD CBCDOREEN, CMP #### [facility] [address] [place], [place] [id number] Protein [Mass/Vol] 7.3 g/dL Normal 6.1-8.1 [place] [facility] Comment on above: Performed By: #### Keagan LANGFORD CBCDOREEN, CMP #### [facility] [address] [place], [place] [id number] Sodium [Moles/Vol] 143 mmol/L Normal 135-146 [place] rn [place] [facility]ational Therapist Comment on above: Performed By: #### Keagan LANGFORD CBCDOREEN, CMP #### [facility] [address] [place], [place] [id number] Urea nitrogen [Mass/Vol] 15 mg/dL Normal 7-25 [facility] Senior Occupational Therapist Comment on above: Performed By: #### Keagan LANGFORD CBCDOREEN, CMP #### [facility] [address] [place], [place] [id number] RBC Sedimentation Rateon ESR (Bld) [Velocity] 7.00 mm/h Normal 0.00-30.00 [facility] Senior Occupational Therapist Comment on above: Performed By: #### Keagan LANGFORD CBCAD, CMP #### [facility] [address] [place], [place] [id number] NOÉ DIAGNOSTIC RTon 09-18-20 [facility] NOÉ SCREENINGon 02-20-2021 [facility] ED NOTEon 12-21-2020 ED NOTE HNO ID: [id number] Author: Yehuda (Rn) Angelina, RN Service: Nursing Author Type: Registered Nurse Type: ED Notes Filed: 12/21/2020 1:54 PM Note Text: AAOX3. Equal/even resp rate. . Discharge instructions hi-lighted and reviewed with pt, pt verbalized understanding. Will follow-up with physician as instructed. No questions/concerns at time of discharge. Ambulated at discharge without difficulty. Normal [facility] ED NOTE HNO ID: [id number] Author: Yehuda MoranRn) ZAINA Alfaro Service: Nursing Author Type: Registered Nurse Type: ED Notes Filed: 12/21/2020 1:00 PM Note Text: Pt is taking home meds, recheck VS in 30-40 minutes Normal [facility] ED PROV NOTEon 12-21-2020 ED PROV NOTE HNO ID: [id number] Author: Mirta Martinez) Edith Service: Emergency Medicine Author Type: Physician Fine Sander Type: ED Provider Notes Filed: 12/21/2020 2:02 [...] weakness or numbness. History provided by: Patient recovery auditor used: No PAST MEDICAL HISTORY Diagnosis Date [...] hospitalized on Thursday in the ICU at [facility] for what sounds to be hypertensive [...] symptoms or elevated blood pressure. SIGNATURE: GAMAL Barragan) Edith 12/21/20 1402 Normal [facility] CBC (INCLUDES DIFF/PLT)on Basophils (Bld) [#/Vol] 0.028 10*3/uL Normal 0-200 [facility] Comment on above: Performed By: #### 1 8011, 520, 3993 #### [facility], [address] [place] [address] [employer] Operator: Delano Olea MD Basophils/100 WBC (Bld) 0.4 % Normal [facility] Comment on above: Performed By: #### 1 023, 809, 6399 #### [facility] , [address] [place] [address] [employer] Operator: Delano Olea MD Eosinophils (Bld) [#/Vol] 0.097 10*3/uL Normal 15-500 [facility] Comment on above: Performed By: #### 1 023, 809, 6399 #### [facility] [address] [place] , [address] [place] [address] [employer] Operator: Delano Olea MD Eosinophils/100 WBC (Bld) 1.4 % Normal [facility] Comment on above: Performed By: #### 1 230, 80, 6399 #### [facility]-[address], [address] [place] [address] [employer] Operator: Delano Olea MD Erythrocyte distribution width (RBC) [Ratio] 13.1 % Normal 11.0-15.0 [facility] Comment on above: Performed By: #### 1 230, 809, 6399 #### [facility]-[address], [address] [place] [address] [employer] Operator: Delano Olea MD Hematocrit (Bld) [Volume fraction] 39.8 % Normal 35.0-45.0 [facility] Comment on above: Performed By: #### 1 023, 809, 6399 #### [facility] [address] [employer] Operator: Delano Olea MD Hemoglobin (Bld) [Mass/Vol] 13.1 g/dL Normal 11.7-15.5 [facility] Comment on above: Performed By: #### 1 023, 809, 6399 #### [facility] [address] [place] , [address] [place] [address] [employer] Operator: Delano Olea MD Lymphocytes (Bld) [#/Vol] 1.691 10*3/uL Normal 850-3900 [facility] Comment on above: Performed By: #### 1 023, 80, 6399 #### [facility] [address] [place] , [address] [place] [address] [employer] Operator: Delano Olea MD Lymphocytes/100 WBC (Bld) 24.5 % Normal [facility] Comment on above: Performed By: #### 1 023, 80, 6399 #### [facility] [address] [place] , [address] [place] [address] [employer] Operator: Delano Olea MD MCH (RBC) [Entitic mass] 28.4 pg Normal 27.0-33.0 [facility] Comment on above: Performed By: #### 1 023, 80, 6399 #### [facility] [address] [place] [address] [employer] Operator: Delano Olea MD MCHC (RBC) [Mass/Vol] 32.9 g/dL Normal 32.0-36.0 [facility] Comment on above: Performed By: #### 1 023, 80, 6399 #### [facility] [address] [place] , [address] [place] [address] [employer] Operator: Delano Olea MD MCV (RBC) [Entitic vol] 86.1 fL Normal 80.0-100.0 [facility] Comment on above: Performed By: #### 1 023, 80, 6399 #### [facility] [address] [place] , [address] [place] [address] [employer] Operator: Delano Olea MD Monocytes (Bld) [#/Vol] 0.497 10*3/uL Normal 200-950 [facility] Comment on above: Performed By: #### 1 0231, 809, 6399 #### [facility] [address] [place] [address] [employer] Operator: Delano Olea MD Monocytes/100 WBC (Bld) 7.2 % Normal [facility] Comment on above: Performed By: #### 1 0231, 809, 6399 #### [facility] [address], [address] [place] [address] [employer] Operator: Delano Olea MD Neutrophils (Bld) [#/Vol] 4.589 10*3/uL Normal 0924-7601 [facility] Comment on above: Performed By: #### 1 0231, 809, 6399 #### [facility] [address], [address] [place] [address] [employer] Operator: Delano Olea MD Neutrophils/100 WBC (Bld) 66.5 % Normal [facility] Comment on above: Performed By: #### 1 0231, 809, 6399 #### [facility] [place] [address] [address], [address] [place] [address] [employer] Operator: Delano Olea MD Platelet mean volume (Bld) [Entitic vol] 9.8 fL Normal 7.5-12.5 [facility] Comment on above: Performed By: #### 1 0231, 809, 6399 #### [facility] [place] [address], [address] [place] [address] [employer] Operator: Delano Olea MD Platelets (Bld) [#/Vol] 190 10*3/uL Normal 140-400 [facility] Comment on above: Performed By: #### 1 0231, 809, 6399 #### [facility] [address], [address] [place] [address] [employer] Operator: Delano Olea MD RBC (Bld) [#/Vol] 4.62 10*6/uL Normal 3.80-5.10 [facility] Comment on above: Performed By: #### 1 0231, 809, 6399 #### [facility] [address], [address] [place] [address] [employer] Operator: Delano Olea MD WBC (Bld) [#/Vol] 6.9 10*3/uL Normal 3.8-10.8 [facility] Comment on above: Performed By: #### 1 0231, 809, 6399 #### [facility] [address], [address] [place] [address] [employer] Operator: Delano Olea MD COMPREHENSIVE METABOLIC PANE [facility] 12-01-2019 Albumin [Mass/Vol] 4.5 g/dL Normal 3.6-5.1 [facility] Comment on above: Order Comment: FASTI NG:NO FASTING: NO Performed By: #### 1 0231, 809, 6399 #### [facility]-[address], [address] [place] [address] [employer] Operator: Delano Olea MD Albumin/Globulin [Mass ratio] 1.9 (calc) Normal 1.0-2.5 [facility] Comment on above: Order Comment: FASTI NG:NO FASTING: NO Performed By: #### 1 0231, 809, 6399 #### [facility]-[address], [address] [place] [address] [employer] Operator: Delano Olea MD ALP [Catalytic activity/Vol] 72 U/L Normal 37-153 [facility] Comment on above: Order Comment: FASTI NG:NO FASTING: NO Performed By: #### 1 023, 809, 6399 #### [facility]-[address], [address] [place] [address] [employer] Operator: Delano Olea MD ALT [Catalytic activity/Vol] 27 U/L Normal 6-29 [facility] Comment on above: Order Comment: FASTI NG:NO FASTING: NO Performed By: #### 1 0231, 809, 6399 #### [facility], [address] [place] [address] [employer] Operator: Delano Olea MD AST [Catalytic activity/Vol] 22 U/L Normal 10-35 [facility] Comment on above: Order Comment: FASTI NG:NO FASTING: NO Performed By: #### 1 0231, 809, 6399 #### [facility], [address] [place] [address] [employer] Operator: Delano Olea MD Bilirubin [Mass/Vol] 0.5 mg/dL Normal 0.2-1.2 [facility] Comment on above: Order Comment: FASTI NG:NO FASTING: NO Performed By: #### 1 0231, 809, 6399 #### [facility] [address], [address] [place] [address] [employer] Operator: Delano Olea MD Calcium [Mass/Vol] 9.8 mg/dL Normal 8.6-10.4 [facility] Comment on above: Order Comment: FASTI NG:NO FASTING: NO Performed By: #### 1 0231, 809, 6399 #### [facility] [address], [address] [place] [address] [employer] Operator: Delano Olea MD Chloride [Moles/Vol] 104 mmol/L Normal 98-110 [facility] Comment on above: Order Comment: FASTI NG:NO FASTING: NO Performed By: #### 1 0231, 80, 6399 #### [facility] [address], [address] [place] [address] [employer] Operator: Delano Olea MD CO2 [Moles/Vol] 32 mmol/L Normal 20-32 [facility] Comment on above: Order Comment: FASTI NG:NO FASTING: NO Performed By: #### 1 0231, 80, [id number] #### [facility] [address] [place] , [address] [place] [address] [employer] Equipment Operator: Delano Olea MD Creatinine [Mass/Vol] 0.65 mg/dL Normal 0.50-0.99 [facility] Comment on above: Order Comment: FASTI NG:NO FASTING: NO Result Comment: For patients >49 years of age, the reference limit for Creatinine is approximately 13% higher for people identified as -Swazi. Performed By: #### 1 [id number], 809, [id number] #### [facility] [address] [place] , [address] [place] [address] [employer] Equipment Operator: Delano Olea MD eGFR NON-AFR. [place] 94 mL/min/1.73m2 Normal > OR = 60 [facility] Comment on above: Order Comment: FASTI NG:NO FASTING: NO Performed By: #### 1 [id number], 809, [id number] #### [facility] [place] [address], [address] [place] [address] [employer] Equipment Operator: Delano Olea MD GFR/1.73 sq M predicted among blacks MDRD (S/P/Bld) [Vol rate/Area] 109 mL/min/{1.73_m2} Normal > OR = 60 [facility] Comment on above: Order Comment: FASTI NG:NO FASTING: NO Performed By: #### 1 023, 809, [id number] #### [facility], [address] [place] [address] [employer] Equipment Operator: Delano Olea MD Globulin (S) [Mass/Vol] 2.4 g/dL (calc) Normal 1.9-3.7 [facility] Comment on above: Order Comment: FASTI NG:NO FASTING: NO Performed By: #### 1 023, 809, [id number] #### [facility], [address] [place] [address] [employer] Equipment Operator: Delano Olea MD Glucose [Mass/Vol] 95 mg/dL Normal 65-139 [facility] Comment on above: Order Comment: FASTI NG:NO FASTING: NO Result Comment: Non-fasting reference interval Performed By: #### 1 023, 809, [id number] #### [facility], [address] [place] [address] [employer] Equipment Operator: Delano Olea MD Potassium [Moles/Vol] 3.4 mmol/L Low 3.5-5.3 [facility] Comment on above: Order Comment: FASTI NG:NO FASTING: NO Performed By: #### 1 023, 809, [id number] #### [facility]-[address], [address] [place] [address] [employer] Equipment Operator: Delano Olea MD Protein [Mass/Vol] 6.9 g/dL Normal 6.1-8.1 [facility] Comment on above: Order Comment: FASTI NG:NO FASTING: NO Performed By: #### 1 0231, 809, [id number] #### [facility], [address] [place] [address] [employer] Equipment Operator: Delano Olea MD Sodium [Moles/Vol] 142 mmol/L Normal 135-146 [facility] Comment on above: Order Comment: FASTI NG:NO FASTING: NO Performed By: #### 1 0231, 809, [id number] #### [facility], [address] [place] [address] [employer] Equipment Operator: Delano Olea MD Urea nitrogen [Mass/Vol] 11 mg/dL Normal 7-25 [facility] Comment on above: Order Comment: FASTI NG:NO FASTING: NO Performed By: #### 1 0231, 809, [id number] #### [facility]-[address], [address] [place] [address] [employer] Equipment Operator: Delano Olea MD Urea nitrogen/Creatinine [Mass ratio] NOT APPLICABLE Normal 6-22 [facility] Comment on above: Order Comment: FASTI NG:NO FASTING: NO Performed By: #### 1 [id number], 809, [id number] #### [facility], [address] [place] [address] [employer] Equipment Operator: Delano Olea MD SED RATE BY MODIFIED WESTERG RENon 12-01-2019 SED RATE BY MODIFIED WESTERGREN 6 mm/h Normal < OR = 30 [facility] Comment on above: Performed By: #### 1 0231, 809, [id number] #### [facility]-[address], [address] [place] [address] [employer] Equipment Operator: Delano Olea MD Vital Signs Date Time Vital Sign Value Performing Clinician Mery dockery 12-30-2024 09:59-0400 Body mass index (BMI) [Ratio] 28.32 kg/m2 Shakeel Abbott MD Work Phone: [facility] 12-30-2024 09:59-0400 Body weight 73.4 kg Shakeel Abbott MD Work Phone: [facility] 12-30-2024 09:59-0400 Diastolic blood pressure 92 mm[Hg] Shakeel Abbott MD Work Phone: [facility] 12-30-2024 09:59-0400 Heart rate 84 /min Shakeel Abbott MD Work Phone: [facility] 12-30-2024 09:59-0400 SaO2% (BldA) [Mass fraction] 100 % Shakeel Abbott MD Work Phone: [facility] 12-30-2024 09:59-0400 Systolic blood pressure 184 mm[Hg] Shakeel Abbott MD Work Phone: [facility] 12-28-2023 14:05-0400 Body weight 71.6 kg Shakeel Abbott MD Work Phone: [facility] 12-28-2023 14:05-0400 Diastolic blood pressure 78 mm[Hg] Shakeel Abbott MD Work Phone: [facility] 12-28-2023 14:05-0400 Heart rate 88 /min Shakeel Abbott MD Work Phone: [facility] 12-28-2023 14:05-0400 SaO2% (BldA) [Mass fraction] 98 % Shakeel Abbott MD Work Phone: [facility] 12-28-2023 14:05-0400 Systolic blood pressure 140 mm[Hg] Shakeel Abbott MD Work Phone: [facility] 03-24-2022 11:49-0400 Diastolic blood pressure 98 mm[Hg] Lena Mcclellan PA-C Work Phone: [facility] 03-24-2022 11:49-0400 Systolic blood pressure 172 mm[Hg] Lena Mcclellan PA-C Work Phone: [facility] 03-24-2022 11:37-0400 Body weight 70.9 kg Lena Mcclellan PA-C Work Phone: [facility] 03-24-2022 11:37-0400 Heart rate 91 /min Lena Mcclellan PA-C Work Phone: [facility] 03-24-2022 11:37-0400 SaO2% (BldA) [Mass fraction] 99 % Lena Mcclellan PA-C Work Phone: [facility] Encounters Encounter Date Encounter Type Care Provider Facility Start: 01-04-2025 End: 01-04-2025 Follow-up encounter Shakeel Abbott MD Work Phone: [facility] Start: 12-30-2024 End: 12-30-2024 ambulatory SHAKEEL ABBOTT Facility:[facility] Start: 12-30-2024 End: 12-30-2024 Patient encounter procedure Shakeel Abbott MD Work Phone: [facility] [place] Comment on above: Medicare annual well ness visit, subsequent (Primary Dx); SHYLA (generalized anxiety disorder); Hypertension, essential; Hypokalemia; Hyperlipidemia, mixed; Blood glucose elevated; Seronegative rheumatoid arthritis (HCC); Encounter for screening mammogram for breast cancer; Encounter for screening for osteoporosis; Asymptomatic postmenopausal status; Osteopenia, unspecified location Start: 12-24-2024 End: 12-26-2024 Refill Shakeel Abbott MD Work Phone: [facility] Comment on above: Refill Request Start: 12-19-2024 End: 12-19-2024 ambulatory SHAKEEL ABBOTT Facility:[facility] Start: 12-13-2024 End: 12-16-2024 ambulatory Shakeel Abbott MD Work Phone: Internal Medicine [facility] Start: 05-12-2024 End: 05-13-2024 Documentation procedure Mammography Coordinator [facility] Start: 05-12-2024 End: 05-13-2024 Letter encounter Mammography Coordinator [facility] Start: 05-11-2024 End: 05-11-2024 ambulatory SHAKEEL ABBOTT Facility:[facility] Start: 05-11-2024 End: 05-11-2024 Subsequent hospital visit by physician Screen Mammo [facility] Comment on above: Encounter for screen ing mammogram for malignant neoplasm of breast [Z12.31] Start: 04-16-2024 ambulatory Shakeel Abbott MD Work Phone: [facility] Comment on above: Low potassium shown on blood test. Start: 04-04-2024 End: 04-04-2024 ambulatory SHAKEEL ABBOTT Facility:[facility] Start: 12-28-2023 End: 12-28-2023 Patient encounter procedure Shakeel Abbott MD Work Phone: [facility] [place] Comment on above: Medicare annual well ness visit, subsequent (Primary Dx); Screening for colon cancer; Hypertension, essential; SHYLA (generalized anxiety disorder); Hypercalcemia; Encounter for screening mammogram for malignant neoplasm of breast; Hyperlipidemia, mixed; Seronegative rheumatoid arthritis (HCC) Start: 11-25-2023 Refill Shakeel Abbott MD Work Phone: [facility] [place] Comment on above: Refill Request Start: 04-29-2023 Documentation procedure Mammog chris Coordinator [facility] Start: 04-29-2023 Letter encounter Mammography Coordinator [facility]IST[facility] Start: 04-28-2023 ambulatory SHAKEEL ABBOTT Facility:[facility] Start: 04-28-2023 End: 04-28-2023 Subsequent hospital visit by physician Mammo/Bone Density [facility] Comment on above: Encounter for screen ing for osteoporosis [Z13.820] Start: 01-29-2023 ambulatory Shakeel Abbott MD Work Phone: [facility] [place] Comment on above: Blood tests Start: 11-20-2022 End: 11-21-[address] DOCTOR CALLAHAN Facility:[facility] Start: 05-26-2022 End: 05-27-[address] DOCTOR CALLAHAN Facility: Start: 04-30-2022 Documentation procedure Mammog chris [facility] Start: 04-30-2022 Letter encounter Mammography Coordinator [place] NOT LIST[facility] Start: 03-24-2022 End: 03-24-2022 Patient encounter procedure Lena Mcclellan PA-C Work Phone: [facility] [place] Comment on above: Hypertension, essent ial (Primary Dx); Hyperlipidemia, mixed; Seronegative rheumatoid arthritis (HCC); SHYLA (generalized anxiety disorder); Screening for colorectal cancer; Encounter for screening for malignant neoplasm of breast, unspecified screening modality Start: 02-11-2022 ambulatory Shakeel Abbott MD Work Phone: [facility] Start: 09-18-2021 End: 09-18-2021 Subsequent hospital visit by physician Diagnostic Mammo [facility] Comment on above: Abnormal mammogram [ R92.8] Start: 02-20-2021 End: 02-20-2021 Subsequent hospital visit by physician Screen Mammo [facility] Comment on above: Screening mammogram, encounter for [Z12.31] Procedures Date Procedure Procedure Detail Performing Clinician Start: 12-19-2024 Lipid 1995 panel - S norma or Plasma Shakeel Abbott MD Work Phone: Start: 12-01-2023 Lipid 1996 panel - S norma or Plasma Shakeel Abbott MD Work Phone: Start: 04-28-2023 Mammography Mammograph y Coordinator Start: 04-30-2022 Mammography Mammograph y Coordinator Start: 03-20-2022 Adult depression screening assessment Lena Mcclellan PA-C Work Phone: Start: 02-17-2022 Lipid 1996 panel - S norma or Plasma [facility] Start: 09-18-2021 Diagnostic mammograp hy computer-aided detcj uni Amalia Conner CUSTOMER SERVICE ASSISTANT.CHLORINATION OPERATOR Work Phone: Start: 02-20-2021 End: 02-20-2021 Mammography Amalia Conner CUSTOMER SERVICE ASSISTANT.CHLORINATION OPERATOR Work Phone: Start: 12-24-2020 Adult depression screening assessment Shakeel Abbott MD Work Phone: Plan of Treatment Date Care Activity Detail Author Start: 2030 RSV Vaccine (1 - 1-d ose 75+ series) RSV Vaccine (1 - 1-dose 75+ series) [facility] Start: 12-19-2029 Lipid panel Lipid Screening [facility] Start: 11-30-2028 Lipid panel Lipid Screening [facility] Start: 12-31-2027 Diabetes Screening Diabetes Screenin g [facility] Start: 04-04-2027 Diabetes Screening Diabetes Screenin g [facility] Start: 02-17-2027 Lipid 1996 panel - S norma or Plasma Lipid Screening [facility] Start: 02-17-2027 Lipid panel Lipid Screening [facility] Start: 02-17-2027 LIPID SCREEN LIPID SCREEN [facility] Start: 01-11-2027 Screening for malign ant neoplasm of colon [facility] Start: 11-30-2026 Diabetes Screening Diabetes Screenin g [facility] Start: 08-27-2026 LIPID SCREEN LIPID SCREEN [facility] Start: 01-01-2026 End: 01-01-2026 Patient encounter procedure 01/01/2026 11:00 AM EDT Office Visit [facility] [address] [place] [address] Shakeel Abbott MD [address] [place] [address] Return in about 1 year (around 12/30/2025) for Medicare Wellness. [facility] Comment on above: Return in about 1 ye ar (around 12/30/2025) for Medicare Wellness. Start: 12-30-2025 Annual PCP Team Psychology Department Chair shelli Disease Visit Annual PCP Team Chronic Disease Visit [facility] Start: 05-11-2025 End: 01-29-2026 DBT Breast - bilateral screening NOÉ SCREENING W MANDA Radiology Routine Encounter for screening mammogram for breast cancer Expected: 05/11/2025, Expires: 01/29/2026 [facility] Work Phone: Comment on above: Expected: 05/11/2025 , Expires: 01/29/2026 Start: 05-11-2025 Screening for malign ant neoplasm of breast Mammogram Screening [facility] Start: 05-11-2025 End: 05-11-2025 Patient encounter procedure [facility] Comment on above: Dx: Encounter for sc reening for osteoporosis [Z13.820]; Asymptomatic postmenopausal status [Z78.0] Dx: Encounter for sc reening mammogram for breast cancer [Z12.31] Start: 02-17-2025 DIABETES SCREEN DIABETES SCREEN [facility] Start: 02-17-2025 Diabetes Screening Diabetes Screenin g [facility] Start: 12-30-2024 End: 12-30-2024 Patient encounter procedure 12/30/2024 10:00 AM EDT Office Visit Family [facility] [address] [place] [address] Shakeel Abbott MD [address] [place] [address] Return in about 1 year (around 12/27/2024) for Medicare Wellness. [facility] Comment on above: Return in about 1 ye ar (around 12/27/2024) for Medicare Wellness. Start: 12-28-2024 End: 12-28-2024 Patient encounter procedure 12/28/2024 1:40 PM EDT Office Visit [facility] [address] [place], [place] [id number] Shakeel Abbott MD [address] [facility] [place] [address] Return in about 1 year (around 12/27/2024) for Medicare Wellness. [facility] Comment on above: Return in about 1 ye ar (around 12/27/2024) for Medicare Wellness. Start: 12-27-2024 Annual PCP Team Psychology Department Chair shelli Disease Visit Annual PCP Team Chronic Disease Visit [facility] Start: 12-27-2024 Covid-19 Vaccine ( season) Covid-19 Vaccine ( season) [facility] Comment on above: Postponed from 05/29 (Declined at this time) Start: 12-27-2024 Pneumococcal Vaccine : 50+ (1 of 1 - PCV) Pneumococcal Vaccine: 50+ (1 of 1 - PCV) [facility] Comment on above: Postponed from 02/24 (Declined at this time) Start: 12-27-2024 Pneumococcal Vaccine : 65+ (1 of 1 - PCV) Pneumococcal Vaccine: 65+ (1 of 1 - PCV) [facility] Comment on above: Postponed from 02/24 (Declined at this time) Start: 12-27-2024 Urine microalbumin profile DTaP,Tdap,Td Vaccine (1 - Tdap) [facility] Comment on above: Postponed from 02/24 (Declined at this time) Start: 12-19-2024 End: 12-19-2024 Patient encounter procedure 12/19/2024 11:00 AM EDT Office Visit [facility] [address] [place] [address] [place] [address] Lab [facility] Comment on above: Lab Start: 12-13-2024 End: 03-14-2025 Lipid 1996 panel - Serum or Plasma LIPID PANEL BASIC Lab Routine Hyperlipidemia, mixed Expected: 12/13/2024, Expires: 03/14/2025 [facility] Work Phone: Comment on above: Expected: 12/13/2024 , Expires: 03/14/2025 Start: 09-28-2024 Advance Directive Discussion Advance Directive Discussion [facility] Start: 05-29-2024 Covid-19 Vaccine () Covid-19 Vaccine () [facility] Start: 05-29-2024 Influenza vaccination C [facility] Start: 05-11-2024 End: 05-11-2024 Patient encounter procedure 05/11/2024 11:30 AM EDT Appointment Mammography [address] [place], [place] [id number] Mammography Start: 04-28-2024 Mammography [facility] Start: 04-28-2024 Screening for malign ant neoplasm of breast Mammogram Screening [facility] Start: 03-28-2024 End: 06-27-2024 25-hydroxyvitamin D3 [Mass/volume] in Serum or Plasma VITAMIN D 25 HYDROXY Lab Routine Hypercalcemia Expected: 03/28/2024, Expires: 06/27/2024 [facility] Work Phone: Comment on above: Expected: 03/28/2024 , Expires: 06/27/2024 Start: 03-28-2024 End: 06-27-2024 Basic metabolic 2000 panel - Serum or Plasma BASIC METABOLIC PNL Lab Routine Hypercalcemia Expected: 03/28/2024, Expires: 06/27/2024 [facility] Work Phone: Comment on above: Expected: 03/28/2024 , Expires: 06/27/2024 Start: 03-28-2024 End: 06-27-2024 Calcium.ionized [Moles/volume] in Blood CALCIUM IONIZED BLOOD Lab Routine Hypercalcemia Expected: 03/28/2024, Expires: 06/27/2024 [facility] Work Phone: Comment on above: Expected: 03/28/2024 , Expires: 06/27/2024 Start: 03-28-2024 End: 06-27-2024 Parathyrin.intact [Mass/volume] in Serum or Plasma PTH INTACT BLD Lab Routine Hypercalcemia Expected: 03/28/2024, Expires: 06/27/2024 [facility] Work Phone: Comment on above: Expected: 03/28/2024 , Expires: 06/27/2024 Start: 02-21-2024 DIABETES SCREEN DIABETES SCREEN [facility] Start: 12-28-2023 End: 03-28-2024 COLOGUARD COLOGUARD Lab Routine Screening for colon cancer Expected: 12/28/2023, Expires: 03/28/2024 [facility] Work Phone: Comment on above: Expected: 12/28/2023 , Expires: 03/28/2024 Start: 12-06-2023 ANNUAL PCP TEAM TECHNOLOGY TRAINER SHELLI DISEASE VISIT ANNUAL PCP TEAM CHRONIC DISEASE VISIT [facility] Start: 12-06-2023 COVID-19 VACCINE (3 - Booster for Pfizer series) COVID-19 VACCINE (3 - Booster for Pfizer series) [facility] Comment on above: Postponed from 01/25 (Declined at this time) Start: 12-06-2023 COVID-19 VACCINE (3 - Pfizer series) COVID-19 VACCINE (3 - Pfizer series) [facility] Comment on above: Postponed from 01/25 (Declined at this time) Start: 12-06-2023 Pneumococcal Vaccine : 65+ (1 - PCV) Pneumococcal Vaccine: 65+ (1 - PCV) [facility] Comment on above: Postponed from 02/24 (Declined at this time) Start: 12-06-2023 Pneumococcal Vaccine : 65+ (1 of 1 - PCV) Pneumococcal Vaccine: 65+ (1 of 1 - PCV) [facility] Comment on above: Postponed from 02/24 (Declined at this time) Start: 12-06-2023 PNEUMOCOCCAL: 65+ (1 - PCV) PNEUMOCOCCAL: 65+ (1 - PCV) [facility] Comment on above: Postponed from 02/24 (Declined at this time) Start: 12-06-2023 SHINGRIX VACCINE (1 of 2) SHINGRIX VACCINE (1 of 2) [facility] Comment on above: Postponed from 02/24 (Declined at this time) Start: 12-06-2023 Urine microalbumin profile [facility] Comment on above: Postponed from 02/24 (Declined at this time) Start: 11-25-2023 End: 2024 CBC panel - Blood by Automated count CBC Lab Routine Hypertension, essential Expected: 11/25/2023, Expires: 2024 [facility] Work Phone: Comment on above: Expected: 11/25/2023 , Expires: 2024 Start: 11-25-2023 End: 2024 Comprehensive metabolic 2000 panel - Serum or Plasma COMP METABOLIC PANEL Lab Routine Hypertension, essential Expected: 11/25/2023, Expires: 2024 [facility] Work Phone: Comment on above: Expected: 11/25/2023 , Expires: 2024 Start: 11-25-2023 End: 2024 Lipid 1996 panel - Serum or Plasma LIPID PANEL BASIC Lab Routine Hypertension, essential Expected: 11/25/2023, Expires: 2024 [facility] Work Phone: Comment on above: Expected: 11/25/2023 , Expires: 2024 Start: 09-28-2023 Advance Directive Discussion Advance Directive Discussion [facility] Start: 09-28-2023 Behavioral Health Screening Behavioral Health Screening [facility] Start: 09-28-2023 Depression Assessment Depression Ass essment [facility] Start: 05-29-2023 Covid-19 Vaccine () Covid-19 Vaccine () [facility] Start: 05-29-2023 Influenza vaccination C [facility] Start: 04-30-2023 Mammography MAMMOGRAM [facility] Start: 03-24-2023 ANNUAL PCP TEAM TECHNOLOGY TRAINER SHELLI DISEASE VISIT ANNUAL PCP TEAM CHRONIC DISEASE VISIT [facility] Start: 03-20-2023 Adult depression screening assessment DEPRESSION SCREENING [facility] Start: 01-29-2023 End: 03-31-2023 CBC panel - Blood by Automated count CBC Lab Routine Hypertension, essential Expected: 01/29/2023, Expires: 03/31/2023 [facility] Work Phone: Comment on above: Expected: 01/29/2023 , Expires: 03/31/2023 Start: 01-29-2023 End: 03-31-2023 Comprehensive metabolic 2000 panel - Serum or Plasma COMP METABOLIC PANEL Lab Routine Hypertension, essential Expected: 01/29/2023, Expires: 03/31/2023 [facility] Work Phone: Comment on above: Expected: 01/29/2023 , Expires: 03/31/2023 Start: 01-29-2023 End: 03-31-2023 Lipid 1996 panel - Serum or Plasma LIPID PANEL BASIC Lab Routine Hyperlipidemia, mixed Expected: 01/29/2023, Expires: 03/31/2023 [facility] Work Phone: Comment on above: Expected: 01/29/2023 , Expires: 03/31/2023 Start: 08-27-2022 ANNUAL PCP TEAM TECHNOLOGY TRAINER SHELLI DISEASE VISIT ANNUAL PCP TEAM CHRONIC DISEASE VISIT [facility] Start: 05-29-2022 Influenza vaccination [facility] Start: 02-20-2022 Mammography MAMMOGRAM [facility] Start: 02-11-2022 End: 04-13-2022 Basic metabolic 2000 panel - Serum or Plasma BASIC METABOLIC PNL Lab Routine Hypertension, essential Expected: 02/11/2022, Expires: 04/13/2022 [facility] Work Phone: Comment on above: Expected: 02/11/2022 , Expires: 04/13/2022 Start: 02-11-2022 End: 04-13-2022 SCHEDULE LAB TESTING SCHEDULE LAB TESTING Lab Routine Expected: 02/11/2022, Expires: 04/13/2022 [facility] Work Phone: Comment on above: Expected: 02/11/2022 , Expires: 04/13/2022 Start: 12-24-2021 Adult depression screening assessment DEPRESSION SCREENING [facility] Start: 09-28-2021 ADVANCE DIRECTIVE DISCUSSION ADVANCE DIRECTIVE DISCUSSION [facility] Start: 12-28-2020 COVID-19 VACCINE (3 - Pfizer risk series) COVID-19 VACCINE (3 - Pfizer risk series) [facility] Start: 02-25-2020 PNEUMOVAX AGE 65 AND OVER WITH 5YR LOOKBACK (#1) PNEUMOVAX AGE 65 AND OVER WITH 5YR LOOKBACK (#1) [facility] Start: 2015 RSV Vaccine (1 - 1-d ose 60+ series) RSV Vaccine (1 - 1-dose 60+ series) [facility] Start: 2005 Pneumococcal Vaccine : 50+ (1 of 1 - PCV) Pneumococcal Vaccine: 50+ (1 of 1 - PCV) [facility] Start: 2005 SHINGRIX VACCINE (1 of 2) SHINGRIX VACCINE (1 of 2) [facility] Start: 02-25-2000 COLOGUARD (FIT-DNA) COLOGUARD (FIT-D NA) [facility] [facility] Start[facility]2000 Colonoscopy COLONOSCOPY [facility] Start: 02-25-2000 COLORECTAL CANCER SCREENING COLORECTAL CANCER SCREENING [facility] Start: 02-25-[address] COLONOGRAPHY [facility] Start: 02-25-2000 FECAL OCCULT BLOOD FECAL OCCULT BLOO D [facility] Start: 02-25-2000 Screening for malign ant neoplasm of colon [facility] Start: 02-25-2000 SIGMOIDOSCOPY SIGMOIDOSCOPY [facility] Start: 1974 SHINGRIX VACCINE (1 of 2) SHINGRIX VACCINE (1 of 2) [facility] Start: 1974 Urine microalbumin profile [facility] Start: 1973 BP CONTROLLED (<130/80) BP CONTROLLE D (<130/80) [facility] Start: 1973 Depression Screening Depression Scre ening [facility] Start: 1961 PNEUMOCOCCAL: 65+ (1 - PCV) PNEUMOCOCCAL: 65+ (1 - PCV) [facility] End: 01-29-2026 BD DXA TRABECULAR BONE SCORE (TBS) BD DXA TRABECULAR BONE SCORE (TBS) Radiology Routine Encounter for screening for osteoporosis Asymptomatic postmenopausal status 1 Occurrences starting 12/30/2024 until 01/29/2026 [facility] Comment on above: 1 Occurrences starti ng 12/30/2024 until 01/29/2026 End: 01-26-2025 DBT Breast - bilateral screening NOÉ SCREENING W MANDA Radiology Routine Encounter for screening mammogram for malignant neoplasm of breast 1 Occurrences starting 12/28/2023 until 01/26/2025 [facility] Work Phone: Comment on above: 1 Occurrences starti ng 12/28/2023 until 01/26/2025 DBT Breast - bilater al screening NOÉ SCREENING W MANDA Radiology Routine Encounter for screening mammogram for malignant neoplasm of breast 05/11/2024 11:39 AM EDT [facility] Work Phone: End: 01-29-2026 DXA Skeletal system.axial Views for bone density DXA-AXIAL SKELETON Radiology Routine Encounter for screening for osteoporosis Asymptomatic postmenopausal status 1 Occurrences starting 12/30/2024 until 01/29/2026 [facility] Comment on above: 1 Occurrences starti ng 12/30/2024 until 01/29/2026 DXA-AXIAL SKELETON DXA-AXIAL SKE LETON Radiology Routine Encounter for screening for osteoporosis Asymptomatic postmenopausal status 04/28/2023 3:16 PM EDT [facility] Work Phone: End: 04-28-2023 NOÉ SCREENING W MANDA [facility] Work Phone: Comment on above: ONCE for 1 Occurrenc es starting 04/28/2023 until 04/28/2023 End: 03-24-2023 Screening colonoscopy COLONOSCOPY SCREENING Endoscopy Routine Screening for colorectal cancer 1 Occurrences starting 03/24/2022 until 03/24/2023 [facility] Work Phone: Comment on above: 1 Occurrences starti ng 03/24/2022 until 03/24/2023 End: 04-23-2023 Screening mammography bi 2-view breast inc cad NOÉ SCREENING Radiology Routine Encounter for screening for malignant neoplasm of breast, unspecified screening modality 1 Occurrences starting 03/24/2022 until 04/23/2023 [facility] Work Phone: Comment on above: 1 Occurrences starti ng 03/24/2022 until 04/23/2023 [facility] Immunizations Immunization Date Immunization Notes Care Provider Trey wise 11-30-2020 COVID-19 vaccine, ag e 12+ yr (PFIZER-BIONTECH - PURPLE TOP) Shakeel Abbott MD Work Phone: [facility] 11-09-2020 COVID-19 vaccine, ag e 12+ yr (PFIZER-BIONTECH - PURPLE TOP) Shakeel Abbott MD Work Phone: [facility] Payers Date Payer Category Payer Medicare MEDICARE MEDICAR E A AND B [id number] 2020-Present [phone] [address] [address] [place] [address] Medicare [id number] 2020 Medicare [id number] 2020 Private Health Insurance MMO MED ICARE SUPPLEMENT [id number] 2020 Unknown MMO MMO MEDICARE SUPPLEMENT [id number] 2020-Present [phone] [address] [place] [address] Indemnity [id number] 2020 Unknown MMO MMO MEDICARE SUPPLEMENT [id number] 2020-Present [phone] [address] [place] [address] Indemnity [id number] 1959 Medicare [id number] 1959 Unknown [id number] 1955 Unknown [id number] 1955 Unknown [id number] Social History Date Type Detail Facility Start: 12-25-2020 End: 12-05-2022 Tobacco smoking status NHIS Never smoked tobacco [facility] Start: 08-27-2021 End: 12-30-2024 Alcohol intake Current non-drinker of alcohol (finding) [facility] Start: 12-24-2020 End: 12-01-2022 History SDOH Alcohol Frequency 1 [facility] Start: 12-24-2020 End: 12-01-2022 History SDOH Social Connections Phone 5 [facility] Start: 12-24-2020 History SDOH Social Connections Get Together 4 [facility] Start: 12-24-2020 End: 12-01-2022 History SDOH Social Connections Baptism 3 [facility] Start: 12-24-2020 End: 12-01-2022 History SDOH Stress 2 [facility] Start: 12-24-2020 Education 15 [facility] Start: 1955 Sex Assigned At Female [facility] Start: 07-28-2021 End: 04-30-2022 Exposure to SARS-CoV-2 (event) Not sure [facility] Start: 12-25-2020 End: 12-05-2022 Tobacco use and exposure Smokeless tobacco non-user [facility] Work Phone: Start: 12-01-2022 History SDOH Alcohol Std Drinks 0 [facility] Start: 12-01-2022 End: 04-28-2023 History of Social function [facility] Start: 12-01-2022 End: 04-28-2023 Social connection and isolation panel [facility] Do you belong to any clubs or organizations such as advent groups, unions, fraternal or athletic groups, or school groups? Yes [facility] Are you now , , , , never or living with a partner? [facility] How often to you hav e a drink containing alcohol? Never [facility] How many standard dr inks containing alcohol do you have on a typical day? Patient does not drink [facility] Do you feel stress - tense, restless, nervous, or anxious, or unable to sleep at night because your mind is troubled all the time - these days [OSQ] Not at all [facility] (I/We) worried wheth er (my/our) food would run out before (I/we) got money to buy more. Never true [facility] In the past 12 month s, was there a time when you were not able to pay the mortgage or rent on time? No [facility] Start: 12-24-2020 Gender identity Identifies as female gender (finding) [facility] Start: 12-24-2020 Sexual orientation Heterosexual (finding) [facility] Do you feel stress - tense, restless, nervous, or anxious, or unable to sleep at night because your mind is troubled all the time - these days [OSQ] Only a little [facility] Functional Status Date Assessment Result Facility 12-25-2024 Total score [AUDIT-C] 0 12/26/19 25 4:42 PM EDT User, Reba [facility] 12-25-2024 Within the last year , have you been humiliated or emotionally abused in other ways by your partner or ex-partner? No 12/25/2024 4:42 PM EDT [facility]-25-[facility] Within the last year , have you been afraid of your partner or ex-partner? No 12/25/2024 4:42 PM EDT User, [facility] 12-25-2024 Within the last year , have you been raped or forced to have any kind of sexual activity by your partner or ex-partner? No 12/25/2024 4:42 PM EDT [facility] 12-25-2024 Within the last year , have you been kicked, hit, slapped, or otherwise physically hurt by your partner or ex-partner? No 12/25/2024 4:42 PM EDT User, Jonelhart No [facility] 12-25-2024 How often to you hav e a drink containing alcohol? Never 12/25/2024 4:42 PM EDT UserReba Never [facility] 12-25-2024 Functional status Patient does n ot drink 12/25/2024 4:42 PM EDT UserReba Patient does not drink [facility] 12-25-2024 How often do you hav e 6 or more drinks on 1 occasion? Never 12/25/2024 4:42 PM EDT UserReba Never [facility] 07-17-2014 Are you deaf, or do you have serious difficulty hearing No 07/17/2014 2:03 PM [employer] Wing Ashby RN No [facility] 07-17-2014 Are you blind, or do you have serious difficulty seeing, even when wearing glasses No 07/17/2014 2:03 PM Wing Santamaria RN No [facility] 07-17-2014 Do you have serious difficulty walking or climbing stairs No 07/17/2014 2:03 PM Wing Santamaria RN No [facility] 07-17-2014 Do you have difficul ty dressing or bathing No 07/17/2014 2:03 PM Wing Santamaria RN No [facility] 07-17-2014 Because of a physica l, mental, or emotional condition, do you have difficulty doing errands alone such as visiting a physician's office or shopping No 07/17/2014 2:03 PM Wing Santamaria RN No [facility] Mental Status Date Assessment Result Facility 07-17-2014 Because of a physica l, mental, or emotional condition, do you have serious difficulty concentrating, remembering, or making decisions No 07/17/2014 2:03 PM Wing Santamaria RN No [facility] Clinical Notes 11-15-2004 to 01-04-2025 Telephone Encounter - Beata Salazar MA - 01/04/2025 4:33 PM EDTTelephone Encounter - Beata Salazar MA - 01/04/2025 4:33 PM Shakeel Foley MD - 12/30/2024 10:22 AM EDTPatient Instructions Note Date & Type Note Facility 01-04-2025 Telephone encounter Note Patient has seen and responded to [employer] message sent. [facility] 01-04-2025 Miscellaneous Notes Patient has seen and responded to [employer] message sent. documented in this encounter [facility] 12-30-2024 Note HNO ID: [id number] Author: SHAKEEL ABBOTT MD Service: ? Author Type: Physician Type: Progress Notes Filed: 12/30/2024 10:48 Note Text: Mary Dempsey is a 69 year old female here for a Medicare wellness visit. Medicare Health Risk Assessment General Health Very good Exercise: Minutes/Day 60 min walks Exercise: Days/Week 5 days Alcohol: Daily Use Never Alcohol: Drinks/Day Patient does not drink Alcohol: 6 or more drinks Never Feel off balance No Concerns: Teeth/Dentures No Concerns: Sexual function No Troubled by feelings None of the above Frequency: Eating healthy diet Nearly every day ADLs requiring help None of the above Safety precautions in home/vehicle Yes Smoke, vape, chews tobacco No Difficulty hearing No Difficulty seeing No Current Providers Specialists: I have reviewed specialist-related care of the patient in the medical record. Medical/Family history review Reviewed and updated problem list, medical/surgical/family/social history, medications, and allergies. Opioid use review Opioid Medications (last 90 days) No data to display Anxiety/Depression screening PHQ-9 Score: 0 . SHYLA-7 Score: 0 . Recommendation: no further intervention at this time Cognitive screening Mini Cog Score: 5 Cognitive screening reviewed and No further action needed (score 3-5). Functional Observation Was the patient's Timed Up AND Go test unsteady or >= 12 seconds? No Advance Care Planning Surrogate decision maker and/or advance care plan documented Measurements BP 184/92 (BP Site: Right Arm, BP Position: Sitting, BP Cuff Size: Regular Adult) Pulse 84 Wt 73.4 kg (161 lb 13.1 oz) SpO2 100% BMI 28.32 kg/m? Vision Screening: Follows with optometry/ophthalmology Assessment/Plan Medicare annual wellness visit, subsequent (Z00.00) - Counseled on healthy diet and regular exercise - Fall avoidance information provided - Personalized prevention plan provided Additional Concerns The following concerns were also discussed with the patient: The patient consented to the use of [employer] software for draft documentation of the visit consistent with [facility]?s Notice of Privacy Practices. Annual Wellness Exam: - No major changes or concerns over the past year. - No current memory concerns. - Up to date with dental and eye care. - No abnormal moles or rashes. - No abdominal pain or changes in stool habits. - No concerns with mood; depression and anxiety screenings were normal. - Advanced directives in place; daughter Cleo is healthcare power of deputy attorney general. - Mammogram in April was normal. - Bone density scan in 2022 showed osteopenia. - Exercises 5 days a week. - Diet is improving; does not consume alcohol or smoke. - Enjoys spending time with grandchildren and attending their sports events. - [place] to travel out west; requests [employer] for flying. Hypertension: - Home blood pressure readings are consistently normotensive - Last reading this morning was 124/83 mmHg. - Takes lisinopril-hydrochlorothiazide 20/12.5 mg and amlodipine 5 mg daily. - Occasionally experiences elevated blood pressure readings at medical appointments. Hyperlipidemia: - Takes rosuvastatin 40 mg daily; denies missing doses. - Recent LDL was 120 mg/dL, slightly higher than last year's 112 mg/dL. - Initial cholesterol levels were over 300 mg/dL before starting medication. Hypokalemia: - Takes potassium supplements but not consistently due to stomach upset. - Recent potassium level was slightly low. Ureteritis: - Managed with Plaquenil for years with good control. Breast Cancer: - Celebrating 20 years since diagnosis. - Mammogram in April was normal. Head: (-) headache Gastrointestinal: (-) abdominal pain, (-) changes in stool habits Skin: (-) rashes or suspicious lesions Neurological: (-) dizziness, (-) memory problems Psychiatric: (-) depression, (-) anxiety Labs: - Lipid Panel: LDL 120 mg/dL (previously 112 mg/dL), total cholesterol within normal limits - Kidney function tests: Normal renal function, potassium slightly low Imaging: - (2022) Bone Density: Osteopenia - (April) Mammogram: Normal BP 184/92 (BP Site: Right Arm, BP Position: Sitting, BP Cuff Size: Regular Adult) Pulse 84 Wt 73.4 kg (161 lb 13.1 oz) SpO2 100% BMI 28.32 kg/m? GENERAL: NAD, alert and oriented. SKIN: Unremarkable, no rash or skin lesions. HEAD: Normocephalic. EYES: EOMI, conjunctiva clear. EARS: External ears normal, canals clear, TM's normal. NOSE/SINUSES: Nares normal. Septum midline. OROPHARYNX: Lips, mucosa, and tongue normal, good dentition. No oral lesions noted. NECK: Supple, no lymphadenopathy LUNGS: Clear to auscultation bilaterally, no wheezes/rhonchi/rales. HEART: Regular rate and rhythm, no murmurs. EXTREMITIES: Normal, no deformities, no skin discoloration, no edema. ABDOMEN: Soft, non-tender, no organomegaly NEURO: A (more content not included)... [facility] 12-30-2024 History of Presen t illness Narrative Images from the original note were not included. Mary Dempsey is a 69 year old female here for a Medicare wellness visit. Medicare Health Risk Assessment General Health Very good Exercise: Minutes/Day 60 min walks Exercise: Days/Week 5 days Alcohol: Daily Use Never Alcohol: Drinks/Day Patient does not drink Alcohol: 6 or more drinks Never Feel off balance No Concerns: Teeth/Dentures No Concerns: Sexual function No Troubled by feelings None of the above Frequency: Eating healthy diet Nearly every day ADLs requiring help None of the above Safety precautions in home/vehicle Yes Smoke, vape, chews tobacco No Difficulty hearing No Difficulty seeing No Current Providers Specialists: I have reviewed specialist-related care of the patient in the medical record. Medical/Family history review Reviewed and updated problem list, medical/surgical/family/social history, medications, and allergies. Opioid use review Opioid Medications (last 90 days) No data to display Anxiety/Depression screening PHQ-9 Score: 0 . SHYLA-7 Score: 0 . Recommendation: no further intervention at this time Cognitive screening Mini Cog Score: 5 Cognitive screening reviewed and No further action needed (score 3-5). Functional Observation Was the patient's Timed Up & Go test unsteady or >= 12 seconds? No Advance Care Planning Surrogate decision maker and/or advance care plan documented Measurements BP 184/92 (BP Site: Right Arm, BP Position: Sitting, BP Cuff Size: Regular Adult) Pulse 84 Wt 73.4 kg (161 lb 13.1 oz) SpO2 100% BMI 28.32 kg/m Vision Screening: Follows with optometry/ophthalmology Assessment/Plan Medicare annual wellness visit, subsequent (Z00.00) - Counseled on healthy diet and regular exercise - Fall avoidance information provided - Personalized prevention plan provided Additional Concerns The following concerns were also discussed with the patient: The patient consented to the use of ambient [employer] software for draft documentation of the visit consistent with [facility] s Notice of Privacy Practices. Annual Wellness Exam: - No major changes or concerns over the past year. - No current memory concerns. - Up to date with dental and eye care. - No abnormal moles or rashes. - No abdominal pain or changes in stool habits. - No concerns with mood; depression and anxiety screenings were normal. - Advanced directives in place; daughter Cleo is healthcare power of deputy attorney general. - Mammogram in April was normal. - Bone density scan in 2022 showed osteopenia. - Exercises 5 days a week. - Diet is improving; does not consume alcohol or smoke. - Enjoys spending time with grandchildren and attending their sports events. - Planning to travel out west; requests [employer] for flying. Hypertension: - Home blood pressure readings are consistently normotensive - Last reading this morning was 124/83 mmHg. - Takes lisinopril-hydrochlorothiazide 20/12.5 mg and amlodipine 5 mg daily. - Occasionally experiences elevated blood pressure readings at medical appointments. Hyperlipidemia: - Takes rosuvastatin 40 mg daily; denies missing doses. - Recent LDL was 120 mg/dL, slightly higher than last year's 112 mg/dL. - Initial cholesterol levels were over 300 mg/dL before starting medication. Hypokalemia: - Takes potassium supplements but not consistently due to stomach upset. - Recent potassium level was slightly low. Ureteritis: - Managed with Plaquenil for years with good control. Breast Cancer: - Celebrating 20 years since diagnosis. - Mammogram in April was normal. Head: (-) headache Gastrointestinal: (-) abdominal pain, (-) changes in stool habits Skin: (-) rashes or suspicious lesions Neurological: (-) dizziness, (-) memory problems Psychiatric: (-) depression, (-) anxiety Labs: - Lipid Panel: LDL 120 mg/dL (previously 112 mg/dL), total cholesterol within normal limits - Kidney function tests: Normal renal function, potassium slightly low Imaging: - (2022) Bone Density: Osteopenia - (April) Mammogram: Normal BP 184/92 (BP Site: Right Arm, BP Position: Sitting, BP Cuff Size: Regular Adult) Pulse 84 Wt 73.4 kg (161 lb 13.1 oz) SpO2 100% BMI 28.32 kg/m GENERAL: NAD, alert and oriented. SKIN: Unremarkable, no rash or skin lesions. HEAD: Normocephalic. EYES: EOMI, conjunctiva clear. EARS: External ears normal, canals clear, TM's normal. NOSE/SINUSES: Nares normal. Septum midline. OROPHARYNX: Lips, mucosa, and tongue normal, good dentition. No oral lesions noted. NECK: Supple, no lymphadenopathy LUNGS: Clear to auscultation bilaterally, no wheezes/rhonchi/rales. HEART: Regular rate and rhythm, no murmurs. EXTREMITIES: Normal, no deformities, no skin discoloration, no edema. ABDOMEN: Soft, non-tender, no organomegaly NEURO: Awake, alert and oriented x3, cranial nerves II-XII grossly intact, normal gait, no involuntary motions. Assessment/Plan 1. Medicare annual wellness visit, subsequent (Z00.00) - see above 2. SHYLA (generalized anxiety disorder) (F41.1) - Managed with Xanax sparingly as needed for anxiety - Refilled Xanax prescription. 3. Hypertension, essential (I10) - Blood pressure readings at home reported as well-controlled, most recent reading 124/83 mmHg. - Uncontrolled in office, longstanding hx of white coat HTN - Continue current antihypertensive regimen: lisinopril-hydrochlorothiazide 20/12.5 mg and amlodipine 5 mg daily. - Refilled prescriptions for lisinopril-hydrochlorothiazide and amlodipine. - Advised patient to monitor blood pressure at home for 1-2 weeks and send readings via [employer]. - Follow-up in one year if blood pressure remains well-controlled. 4. Hypokalemia (E87.6) - Previous labs showed slightly low potassium levels. - Patient reports occasional gastrointestinal discomfort with potassium supplementation. - Ordered repeat electrolytes to assess current potassium levels. - Discussed dietary sources of potassium as an alternative to supplementation. - Will adjust potassium supplementation based on lab results. 5. Hyperlipidemia, mixed (E78.2) - Recent lipid panel showed LDL cholesterol at 120 mg/dL, slightly elevated from previous year. - Continue rosuvastatin 40 mg daily. - Refilled rosuvastatin prescription. - Discussed importance of maintaining a healthy diet to support lipid management. - Follow-up in one year with repeat lipid panel. 6. Blood glucose elevated (R73.9) - No recent lab results available for blood glucose levels. - Ordered comprehensive metabolic panel to assess current blood glucose levels. - Will review results and determine if further management is necessary. 7. Seronegative rheumatoid arthritis (HCC) (M06.00) - Managed with Plaquenil, which patient reports is effective. - No current flare-ups or concerns reported. - Continue current medication regimen. - Follow-up with rheumatology as needed. 8. Encounter for screening mammogram for breast cancer (Z12.31) - Last mammogram performed in April; results were normal. - Ordered next screening mammogram to be scheduled after May 11 to ensure insurance coverage. - Discussed potential for additional breast screening based on upcoming mammogram results and patient's history of breast cancer. 9. Encounter for screening for osteoporosis (Z13.820) 10. Asymptomatic postmenopausal status (Z78.0) 11. Osteopenia, unspecified location (M85.80) - Last bone density scan in 2022 showed osteopenia. - Ordered next bone density scan to be scheduled in April. - Discussed importance of regular screening to monitor bone health. Shakeel Abbott MD documented in this encounter [facility] 12-30-2024 Instructions Shakeel Abbott MD - 12/30/2024 10:22 AM EDT Screening schedule The following prevention plan is recommended: Depression Screening Never done BP Controlled (<130/80) Never done DTaP,Tdap,Td Vaccine(1 - Tdap) Never done Shingrix Vaccine(1 of 2) Never done Pneumococcal Vaccine: 50+(1 of 1 - PCV) Never done Influenza Vaccine(1) Never done Covid-19 Vaccine( season) due on 05/29/2024 Advance Directive Discussion due on 09/28/2024 Mammogram Screening due on 05/11/2025 WHAT YOU CAN DO TO PREVENT FALLS [...] review all the medicines you take, even ofdt-vuu-mmopygy medicines. As you get older, the way [...] apply if you have certain medical conditions. BONE MINERAL DENSITY PATIENT INSTRUCTIONS ========= Bone mineral density testing measures the amount of calcium in certain parts of your bones. This information determines how strong your bones are. The test is used to detect osteoporosis, a disease in which the bone's mineral content and density are low, increasing a person's risk of fractures. The lumbar spine (lower back) and the hip are the skeletal sites usually examined. For the test, remember that: 1. You cannot take this test if you are . 2. Eat a normal diet on the day of the test. 3. Take your medications as you normally would. 4. DO NOT take calcium supplements (such as Tums) for 24 hours before the test. 5. On the day of the test, leave valuables (jewelry or credit cards) at home. 6. The test should be performed prior to oral, rectal or IV contrast studies, or at least 7 days after any of these studies. For the test, you may be asked to wear a hospital gown. You will lie on your back, on a padded table, in a comfortable position. Generally, you can resume your usual activities immediately. documented in this encounter [facility] 12-26-2024 Telephone encounter Note The following approved medication requests have been transmitted electronically. Requested Prescriptions Pending Prescriptions Disp Refills amLODIPine (NORVASC) 5 mg tablet [Pharmacy Med Name: AMLODIPINE BESYLATE 5 MG TAB] 90 tablet 3 Sig: TAKE 1 TABLET BY MOUTH EVERY DAY Shakeel Abbott MD [facility] 12-26-2024 Miscellaneous Notes The following approved medication requests have been transmitted electronically. Requested Prescriptions Pending Prescriptions Disp Refills amLODIPine (NORVASC) 5 mg tablet [Pharmacy Med Name: AMLODIPINE BESYLATE 5 MG TAB] 90 tablet 3 Sig: TAKE 1 TABLET BY MOUTH EVERY DAY Shakeel Abbott MD Received request for refill of the following medications: Requested Prescriptions Pending Prescriptions Disp Refills amLODIPine (NORVASC) 5 mg tablet [Pharmacy Med Name: AMLODIPINE BESYLATE 5 MG TAB] 90 tablet 3 Sig: TAKE 1 TABLET BY MOUTH EVERY DAY Patient requested a 90 day refill. Pharmacy verified and updated accordingly. Patient was last seen by PCP team/provider: 12/28/23. Upcoming appointment scheduled: 12/30/24. documented in this encounter [facility] 12-26-2024 Telephone encounter Note Received request for refill of the following medications: Requested Prescriptions Pending Prescriptions Disp Refills amLODIPine (NORVASC) 5 mg tablet [Pharmacy Med Name: AMLODIPINE BESYLATE 5 MG TAB] 90 tablet 3 Sig: TAKE 1 TABLET BY MOUTH EVERY DAY Patient requested a 90 day refill. Pharmacy verified and updated accordingly. Patient was last seen by PCP team/provider: 12/28/23. Upcoming appointment scheduled: 12/30/24. [facility] 12-13-2024 Note Patient Outreach (IN [facility]) MARY DEMPSEY ([id number]) 1955 F Date Time Provider Department 12/13/24 SHAKEEL ABBOTT During your visit today, we recorded the following information about you: Allergies As of Date: 12/13/2024 (No Known Allergies) Date Reviewed: 12/28/2023 Reviewed by: Batool Grant MA - Fully Assessed Visit Diagnosis:Hyperlipidemia, mixed [E78.2] Order(s):LIPID PANEL BASIC [SQLIPB] Order #: [id number] FUTURE Prescriptions as of 12/16/2024 - potassium chloride ER (KLOR-CON M20) 20 mEq tablet Take 1 tablet by mouth once daily. - amLODIPine (NORVASC) 5 mg tablet Take 1 tablet by mouth once daily. - rosuvastatin (CRESTOR) 40 mg tablet Take 1 tablet by mouth once daily. - lisinopril-hydroCHLOROthiazide (ZESTORETIC) 20-12.5 mg per tablet Take 1 tablet by mouth once daily. - PLAQUENIL 200 MG TABLET one tablet two times daily Problem List As Of Date 12/13/2024 Noted Resolved History of breast cancer [Z85.3] 11/07/2004 Malignant neoplasm of female breast [174] 11/15/2004 03/27/2008 Seronegative rheumatoid arthritis (HCC) [M06.00]02/20/2021 Hypertension, essential [I10] 02/20/2021 Hyperlipidemia, mixed [E78.2] 02/20/2021 Heart murmur [R01.1] 02/20/2021 SHYLA (generalized anxiety disorder) [F41.1] 03/24/2022 Encounter Status:Closed by MARIAM CAMACHO on 12/16/24 [facility] 05-12-2024 Note Formatting of this n ote might be different from the original. May 13, 2024 PID: [id number] Mary Dempsey [address] [place] [address] [place] [id number] Dear Ms. Dempsey, We are pleased to [...] report will be kept on file at [facility] as part of your permanent medical record and are available for your continuing care. Thank you for allowing us to help in meeting your health care needs. Sincerely, Dr. Lozano Interpreting Radiologist [facility] (Normal over 40) [facility] 05-12-2024 Miscellaneous Notes May 13, 2024 PID: [id number] Mary Dempsey [address] [place] [address] [address] [place] [address] Dear Ms. Dempsey, We are pleased to [...] report will be kept on file at [facility] as part of your permanent medical record and are available for your continuing care. Thank you for allowing us to help in meeting your health care needs. Sincerely, Dr. Lozano Interpreting Radiologist [facility] (Normal over 40) documented in this encounter [facility] 05-11-2024 History of Presen t illness Narrative [...] PATIENT PRESENTS WITH AN IMPLANTABLE OR ATTACHED REGULATORY LEADER: No RADIOLOGY DEPARTMENT: Mammography PERIPHERAL IV DATA: Not applicable SIGNED BY: RT Tristan(Joey) May 11, 2024 11:25 AM documented in this encounter [facility] 05-11-2024 Note HNO ID: [id number] Author: SARAHY LANDAVERDE RT (R) Service: ? Author Type: Technologist Type: Progress [...] PATIENT PRESENTS WITH AN IMPLANTABLE OR ATTACHED REGULATORY LEADER: No RADIOLOGY DEPARTMENT: Mammography PERIPHERAL IV DATA: Not applicable SIGNED BY: LOVELY Hudson) May 11, 2024 11:25 AM [facility] 04-18-2024 Telephone encounter Note The following approved medication requests have been transmitted electronically. Requested Prescriptions Signed Prescriptions Disp Refills potassium chloride ER (KLOR-CON M20) 20 mEq tablet 90 tablet 3 Sig: Take 1 tablet by mouth once daily. Shakeel Abbott MD [facility] 04-18-2024 Miscellaneous Notes The following approved medication requests have been transmitted electronically. Requested Prescriptions Signed Prescriptions Disp Refills potassium chloride ER (KLOR-CON M20) 20 mEq tablet 90 tablet 3 Sig: Take 1 tablet by mouth once daily. Shakeel Abbott MD Reply to reba result note. documented in this encounter [facility] 04-18-2024 Telephone encounter Note Reply to reba result note. [facility] 12-28-2023 Instructions Shakeel Abbott MD - 12/28/2023 [...] review all the medicines you take, even wstl-qyx-hemvtlr medicines. As you get older, the way [...] certain medical conditions. documented in this encounter [facility] 12-28-2023 History of Presen t illness Narrative [...] in the medical record. Sees rheumatology in [facility]/Family history review Reviewed and updated problem [...] ICD9: 714.0, ICD10: M06.00 Following with outside conventions reservationist, stable on Plaquenil Shakeel Abbott MD documented in this encounter [facility] 11-25-2023 Miscellaneous Notes Please advise patient to [...] Janet Solomon MA documented in this encounter [facility] 04-29-2023 Miscellaneous Notes [address] [address] April 29, 2023 PID: [id number] Mary Dempsey [address] [place] [address] [address] [place] [address] Dear Ms. Dempsey, We are pleased to [...] report will be kept on file at [facility] as part of your permanent medical record and are available for your continuing care. Thank you for allowing us to help in meeting your health care needs. Sincerely, Dr. Sam Interpreting Radiologist [facility] (Normal over 40) documented in this encounter [facility] 04-28-2023 Note HNO ID: [id number] Author: Mary Khan RT(R) Service: Radiology Author [...] LOVELY Bliss) April 28, 2023 3:18 PM [facility] 04-28-2023 Note HNO ID: [id number] Author: Mary Khan RT(Joey) Service: Radiology Author [...] RT Ruthy(R) April 28, 2023 3:17 PM [facility] 04-28-2023 History of Presen t illness [...] 2023 3:18 PM documented in this encounter [facility] 04-28-2023 History of Presen t illness Narrative [...] 2023 3:17 PM documented in this encounter [facility] 01-29-2023 Miscellaneous Notes Orders pended for signature. Patient would CBC, Comp Metabolic, and Lipid panel (fasting) reordered so that she will be able to have done when she comes in for colonoscopy on 02/06/23. Please review and advise. documented in this encounter [facility] 04-30-2022 [place] [address] April 30, 2022 PID: [id number] Mary Dempsye [address] [place] [address] [address] [place] [address] Dear Ms. Dempsey, We are pleased to [...] report will be kept on file at [facility] as part of your permanent medical record and are available for your continuing care. Thank you for allowing us to help in meeting your health care needs. Sincerely, Dr. García Interpreting Radiologist [facility] (Normal over 40) documented in this encounter [facility] 03-24-2022 Instructions Lena Mcclellan PA-C - 03/24/2022 [...] Lena Mcclellan PA-C documented in this encounter [facility] 03-24-2022 History of Presen t illness Narrative This note was created using Solarmassriter. Subjective Mary Dempsey is a 67 year [...] Lena Mcclellan PA-C documented in this encounter [facility] 09-18-2021 History of Presen t illness Narrative [...] 2021 10:46 AM documented in this encounter [facility] 02-20-2021 History of Presen t illness Narrative [...] 2021 11:05 AM documented in this encounter [facility] 11-15-2004 History of Past i llness Narrative Problem Noted Date Resolved Date Malignant neoplasm of female breast 11/15/2004 03/27/2008 documented as of this encounter (statuses as of 02/14/2022) [facility] History of Past illness Narrative* Problem Noted Date Resolved Date Malignant neoplasm of female breast 11/15/2004 03/27/2008 documented as of this encounter (statuses as of 03/24/2022) [facility] History of Past illness Narrative* Problem Noted Date Resolved Date Malignant neoplasm of female breast 11/15/2004 03/27/2008 documented as of this encounter (statuses as of 05/02/2022) [address] History of Past illness Narrative* Problem Noted Date Resolved Date Malignant neoplasm of female breast 11/15/2004 03/27/2008 documented as of this encounter (statuses as of 01/29/2023) [address] History of Past illness Narrative* Problem Noted Date Diagnosed Date Resolved Date Malignant neoplasm of female breast 11/15/2004 03/27/2008 documented as of this encounter (statuses as of 04/29/2023) [address] History of Past illness Narrative* Problem Noted Date Diagnosed Date Resolved Date Malignant neoplasm of female breast 11/15/2004 03/27/2008 documented as of this encounter (statuses as of 04/29/2023) [address] History of Past illness Narrative* Problem Noted Date Diagnosed Date Resolved Date Malignant neoplasm of female breast 11/15/2004 03/27/2008 documented as of this encounter (statuses as of 05/01/2023) [address] History of Past illness Narrative* Problem Noted Date Diagnosed Date Resolved Date Malignant neoplasm of female breast 11/15/2004 03/27/2008 documented as of this encounter (statuses as of 05/08/2023) [address] History of Past illness Narrative* Problem Noted Date Diagnosed Date Resolved Date Malignant neoplasm of female breast 11/15/2004 03/27/2008 documented as of this encounter (statuses as of 07/30/2023) [address] History of Past illness Narrative* Problem Noted Date Diagnosed Date Resolved Date Malignant neoplasm of female breast 11/15/2004 03/27/2008 documented as of this encounter (statuses as of 11/26/2023) [address] History of Past illness Narrative* Problem Noted Date Diagnosed Date Resolved Date Malignant neoplasm of female breast 11/15/2004 03/27/2008 documented as of this encounter (statuses as of 12/29/2023) [facility] Hypertension, essential Unspecified essential hypertension [facility] Hypertension, essential- Primary Unspecified essential hypertension Hyperlipidemia, mixed Mixed hyperlipidemia Seronegative rheumatoid arthritis (HCC) Rheumatoid arthritis SHYLA (generalized anxiety disorder) Generalized anxiety disorder Encounter for screening for malignant neoplasm of breast, unspecified screening modality [facility] Diagnosis Hypertension, essential- Primary Unspecified essential hypertension Hyperlipidemia, mixed Mixed hyperlipidemia [facility] Diagnosis Encounter for screening for osteoporosis Special screening for osteoporosis Asymptomatic postmenopausal status [facility] Diagnosis Encounter for screening mammogram for malignant neoplasm of breast Other screening mammogram documented in this encounter [facility]* Diagnosis Screening mammogram, encounter for [facility] this [facility] Diagnosis Abnormal mammogram Abnormal mammogram, unspecified [facility] Diagnosis Hypertension, essential- Primary Unspecified essential hypertension [facility] Diagnosis Medicare annual wellness visit, subsequent- [...] (HCC) Rheumatoid arthritis [facility] Diagnosis Hypokalemia- Primary Hypopotassemia [facility] Diagnosis Encounter for screening mammogram for malignant neoplasm of breast Other screening mammogram [facility] Diagnosis Hyperlipidemia, mixed Mixed hyperlipidemia [facility] Diagnosis Hypertension, essential Unspecified essential hypertension [facility] Diagnosis Medicare annual wellness visit, subsequent- Primary Routine general medical examination at a health care facility SHYLA (generalized anxiety disorder) Generalized anxiety disorder Hypertension, essential Unspecified essential hypertension Hypokalemia Hypopotassemia Hyperlipidemia, mixed Mixed hyperlipidemia Blood glucose elevated Other abnormal glucose Seronegative rheumatoid arthritis (HCC) Rheumatoid arthritis Encounter for screening mammogram for breast cancer Encounter for screening for osteoporosis Special screening for osteoporosis Asymptomatic postmenopausal status Osteopenia, unspecified location [facility] Diagnosis Hypokalemia- Primary Hypopotassemia documented in this encounter [facility] for referral (narrative)* Diagnostic Procedure Only (Routine) - Authorized Specialty Diagnoses / Procedures Referred By Contac t Referred To Contact [facility] Diagnoses Encounter for screening for malignant neoplasm of breast, unspecified screening modality Procedures NOÉ SCREENING SCREENING MAMMOGRAPHY BI 2-VIEW BREAST INC CAD Lena Mcclellan PA-C [address] [place] [address] [facility] [address] [place] [address] Referral ID Status Reason Start Date Expiration Date Visits Requested Visits Authorized [id number] Authorized Auto-Generat ed Referral 03/24/2022 04/23/2023 1 1 * Outpatient Procedure (Routine) - Authorized Specialty Diagnoses / Procedures Referred By Dariela norton Referred To Contact [facility] Diagnoses Screening for colorectal cancer Procedures COLONOSCOPY SCREENING COLONOSCOPY FLX DX W/COLLJ SPEC WHEN PFRMD Lena Mcclellan PA-C [address] [place] [address] [facility] [address] [place] [address] Referral ID Status Reason Start Date Expiration Date Visits Requested Visits Authorized [id number] Authorized Auto-Generat ed Referral 03/24/2022 03/24/2023 1 1 [facility] for referral (narrative)* Diagnostic Procedure Only (Routine) - Pending Review Specialty Diagnoses / Procedures Referred By Dariela norton Referred To Contact [facility] Diagnoses Encounter for screening mammogram for malignant neoplasm of breast Procedures NOÉ SCREENING W MANDA SCREENING DIGITAL BREAST TOMOSYNTHESIS BI SCREENING MAMMOGRAPHY BI 2-VIEW BREAST INC Shakeel Stringer MD [address] [place] [address] [facility] [address] [place] [address] Referral ID Status Reason Start Date Expiration Date Visits Requested Visits Authorized [id number] Pending Review Auto-Generat ed Referral 12/28/2023 01/26/2025 1 1 [facility] for visit Narrative* Diagnostic Procedure Only (Routine) - Closed Specialty Diagnoses / Procedures Referred By Dariela norton Referred To Contact [facility] Diagnoses Encounter for screening mammogram for malignant neoplasm of breast Procedures NOÉ SCREENING SCREENING MAMMOGRAPHY BI 2-VIEW BREAST INC CAD Shakeel Abbott MD [address] [place] [address] [facility] [address] [place] [address] Referral ID Status Reason Start Date Expiration Date V isits Requested Visits Authorized [id number] Closed Auto-Generate d Referral 04/28/2023 01/04/2024 1 1 [facility] Summary Purpose Family History No Family History Records FoundNo Family History Records FoundNo Family History Records FoundNo Family History Records FoundNo Family History Records FoundNo Family History Records Found Advance Directives Documents on File Type Date Recorded Patient Quality Rn Expl anation Advance Directive(s) Advance Directive(s) 12/21/2020 1:20 PM Documents on File Type Date Recorded Patient Quality Rn Expl anation Advance Directive(s) Advance Directive(s) 12/21/2020 1:20 PM Additional Source Comments INFORMATION SOURCE (unrecogn ized section and content) DATE CREATED AUTHOR 12/01/2019 [facility] DATE CREATED AUTHOR AUTHOR'S ORGANIZ ATION 12/23/2020 [facility] DATE CREATED AUTHOR AUTHOR'S ORGANIZ ATION 12/18/2021 [facility] dical Specialist DATE CREATED AUTHOR AUTHOR'S ORGANIZ ATION 11/25/2022 [facility] DATE CREATED AUTHOR AUTHOR'S ORGANIZ ATION 05/01/2023 [facility] DATE CREATED AUTHOR AUTHOR'S ORGANIZ ATION 01/01/2025 [facility] Source Comments (unrecognize d section and content) In the event this informatio n is protected by the Federal Confidentiality of Alcohol and Drug Abuse Patient Records regulations: The Federal rules restrict any use of the information to criminally investigate or prosecute any alcohol or drug abuse patient.[facility] the event this information is protected by the Federal Confidentiality of Alcohol and Drug Abuse Patient Records regulations: The Federal rules restrict any use of the information to criminally investigate or prosecute any alcohol or drug abuse patient.[facility] the event this information is protected by the Federal Confidentiality of Alcohol and Drug Abuse Patient Records regulations: The Federal rules restrict any use of the information to criminally investigate or prosecute any alcohol or drug abuse patient.[facility] the event this information is protected by the Federal Confidentiality of Alcohol and Drug Abuse Patient Records regulations: The Federal rules restrict any use of the information to criminally investigate or prosecute any alcohol or drug abuse patient.[facility] the event this information is protected by the Federal Confidentiality of Alcohol and Drug Abuse Patient Records regulations: The Federal rules restrict any use of the information to criminally investigate or prosecute any alcohol or drug abuse patient.[facility] the event this information is protected by the Federal Confidentiality of Alcohol and Drug Abuse Patient Records regulations: The Federal rules restrict any use of the information to criminally investigate or prosecute any alcohol or drug abuse patient.[facility] the event this information is protected by the Federal Confidentiality of Alcohol and Drug Abuse Patient Records regulations: The Federal rules restrict any use of the information to criminally investigate or prosecute any alcohol or drug abuse patient.[facility] Center[facility] the event this information is protected by the Federal Confidentiality of Alcohol and Drug Abuse Patient Records regulations: The Federal rules restrict any use of the information to criminally investigate or prosecute any alcohol or drug abuse patient.[facility] Center[facility] the event this information is protected by the Federal Confidentiality of Alcohol and Drug Abuse Patient Records regulations: The Federal rules restrict any use of the information to criminally investigate or prosecute any alcohol or drug abuse patient.[facility] Center[facility] the event this information is protected by the Federal Confidentiality of Alcohol and Drug Abuse Patient Records regulations: The Federal rules restrict any use of the information to criminally investigate or prosecute any alcohol or drug abuse patient.[facility] Center[facility] the event this information is protected by the Federal Confidentiality of Alcohol and Drug Abuse Patient Records regulations: The Federal rules restrict any use of the information to criminally investigate or prosecute any alcohol or drug abuse patient.[facility] Center[facility] the event this information is protected by the Federal Confidentiality of Alcohol and Drug Abuse Patient Records regulations: The Federal rules restrict any use of the information to criminally investigate or prosecute any alcohol or drug abuse patient.[facility] the event this information is protected by the Federal Confidentiality of Alcohol and Drug Abuse Patient Records regulations: The Federal rules restrict any use of the information to criminally investigate or prosecute any alcohol or drug abuse patient.[facility] Center[facility] the event this information is protected by the Federal Confidentiality of Alcohol and Drug Abuse Patient Records regulations: The Federal rules restrict any use of the information to criminally investigate or prosecute any alcohol or drug abuse patient.[facility] CenterIn the event this information is protected by the Federal Confidentiality of Alcohol and Drug Abuse Patient Records regulations: The Federal rules restrict any use of the information to criminally investigate or prosecute any alcohol or drug abuse patient.[facility] CenterIn the event this information is protected by the Federal Confidentiality of Alcohol and Drug Abuse Patient Records regulations: The Federal rules restrict any use of the information to criminally investigate or prosecute any alcohol or drug abuse patient.[facility] CenterIn the event this information is protected by the Federal Confidentiality of Alcohol and Drug Abuse Patient Records regulations: The Federal rules restrict any use of the information to criminally investigate or prosecute any alcohol or drug abuse patient.[facility] CenterIn the event this information is protected by the Federal Confidentiality of Alcohol and Drug Abuse Patient Records regulations: The Federal rules restrict any use of the information to criminally investigate or prosecute any alcohol or drug abuse patient.[facility] Care Teams (unrecognized sec tion and content) Senior Payroll Administrator Relationship Specialty Start Date End Date Shakeel Abbott MD [address] [place] [address] PCP - General Family Practice 05/13/21 Senior Payroll Administrator Relationship Specialty Start Date End Date Shakeel Abbott MD [address] [place] [address] PCP - General Family Practice 05/13/21 Senior Payroll Administrator Relationship Specialty Start Date End Date Shakeel Abbott MD [address] [place] [address] PCP - General Family Practice 05/13/21 Senior Payroll Administrator Relationship Specialty Start Date End Date Shakeel Abbott MD [address] [place] [address] PCP - General Family Medicine 05/13/21 Senior Payroll Administrator Relationship Specialty Start Date End Date Shakeel Abbott MD [address] [place] [address] PCP - General Family Medicine 05/13/21 Senior Payroll Administrator Relationship Specialty Start Date End Date Shakeel Abbott MD [address] [place] [address] PCP - General Family Medicine 05/13/21 Senior Payroll Administrator Relationship Specialty Start Date End Date Shakeel Abbott MD [address] [place] [address] PCP - General Family Medicine 05/13/21 Senior Payroll Administrator Relationship Specialty Start Date End Date Kash Person MD [address] [place] [address] PCP - General 11/01/04 03/22/21 Senior Payroll Administrator Relationship Specialty Start Date End Date Shakeel Abbott MD [address] [place] [address] PCP - General Family Medicine 05/13/21 Senior Payroll Administrator Relationship Specialty Start Date End Date Shakeel Abbott MD [address] [place] [address] PCP - General Family Medicine 05/13/21 Senior Payroll Administrator Relationship Specialty Start Date End Date Shakeel Abbott MD [address] [place] [address] PCP - General Family Medicine 05/13/21 Senior Payroll Administrator Relationship Specialty Start Date End Date Shakeel Abbott MD [address] [place] [address] PCP - General Family Medicine 05/13/21 Senior Payroll Administrator Relationship Specialty Start Date End Date Shakeel Abbott MD [address] [place] [address] PCP - General Family Medicine 05/13/21 Senior Payroll Administrator Relationship Specialty Start Date End Date Shakeel Abbott MD [address] [place] [address] PCP - General Family Medicine 05/13/21 Lena Mcclellan PA-C [address] [place] [address] Booster Station Operator Internal Medicine 09/06/24 Senior Payroll Administrator Relationship Specialty Start Date End Date Shakeel Abbott MD [address] [place] [address] PCP - General Family Medicine 05/13/21 Lena Mcclellan PA-C [address] [place] [address] Booster Station Operator Internal Medicine 09/06/24 Senior Payroll Administrator Relationship Specialty Start Date End Date Shakeel Abbott MD [address] [place] [address] PCP - General Family Medicine 05/13/21 Lena Mcclellan PA-C [address] [place] [address] Booster Station Operator Internal Medicine 09/06/24 Senior Payroll Administrator Relationship Specialty Start Date End Date Shakeel Abbott MD [address] [place] [address] PCP - General Family Medicine 05/13/21 Lena Mcclellan PA-C [address] [place] [address] Booster Station Operator Internal Medicine 09/06/24 Reason for Visit (unrecogniz ed section and content) Reason Comments Radiology Mammogram Specialty Diagnoses / Procedures Referred By Contac t Referred To Contact [facility] Diagnoses Encounter for screening mammogram for malignant neoplasm of breast Procedures NOÉ SCREENING W MANDA SCREENING DIGITAL BREAST TOMOSYNTHESIS BI SCREENING MAMMOGRAPHY BI 2-VIEW BREAST INC Shakeel Stringer MD [address] [place] [address] [facility] [address] [place] [address] Referral ID Status Reason Start Date Expiration Date V isits Requested Visits Authorized [id number] Closed Auto-Generate d Referral 12/28/2023 01/26/2025 1 1 Reason Comments Recheck 6 month for HTN. Sta shanell she has been feeling good. Sttes that her BP is usually good at home. Reason Comments Refill Request Reason Comments Hypertension Medicare Wellness Exam Reason Comments Medicare Wellness Exam No concerns BP at home today 125/73 took amlodipine at 7 am today has not missed doses FOR RECORDS PERTAINING TO PATIENTS WHO ARE [...] BE BASED ON THE PRIMARY CLINICAL RECORDS. [employer] provides no warranty or guarantee of the accuracy or completeness of information in this document.
[2025-04-19 07:27] LABS: Hematocrit 41.0 % (36.0-48.0); Hemoglobin 13.7 g/dL (12.0-16.0); Immature Granulocytes Abs Auto 0.02 10^3/uL (0.00-0.03); Immature Granulocytes Pct Auto 0.2 % (0.0-0.5); Lymphocytes Absolute Auto 2.1 10^3/uL (1.2-3.8); Mean Corpuscular HGB Conc 33.4 g/dL (29.9-35.2); Mean Corpuscular Hemoglobin 28.2 pg (26.7-34.0); Mean Corpuscular Volume 84.4 fL (81.0-99.0); Platelet Count 250 10^3/uL (150-450); Red Blood Count 4.86 10^6/uL (4.20-5.40); White Blood Count 8.6 10^3/uL (4.0-11.0)
[2025-04-19 07:44] LABS: Alanine Aminotransferase 41 U/L (14-59); Albumin Globulin Ratio 1.1; Albumin Level 3.8 g/dL (3.4-5.0); Alkaline Phosphatase 76 U/L (46-116); Anion Gap 11.9; Aspartate Amino Transferase 31 U/L (15-37); Blood Urea Nitrogen 22.0 mg/dL (7.0-18.0); Calcium 9.3 mg/dL (8.5-10.1); Carbon Dioxide 29.5 mmol/L (21.0-32.0); Chloride 105 mmol/L (98-107); Estimated GFR (African America >60 (>=60 mL/min/1.73m^2); Estimated GFR (Non-African Ame >60 (>=60 mL/min/1.73m^2); Globulin 3.4 g/dL; Glucose 107 mg/dL (74-106); Potassium 3.4 mmol/L (3.5-5.1); Sodium 143 mmol/L (136-145); Total Protein 7.2 g/dL (6.4-8.2)
== END 2025-04-19 06:49 | disposition home or self-care (01) ==
LOC: LAB 06:50
PROVIDERS: Visit Provider Internal Medicine Rheumatology
DX: M05.79 Rheumatoid arthritis with rheumatoid factor of multiple sites without organ or systems involvement (principal); M19.91 Primary osteoarthritis, unspecified site; Z79.899 Other long term (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 therapy
CPT/HCPCS: 36415; 80053; 85025; 85652